=== PATIENT | male | born 1945 | race African-American/Black ===

== ENCOUNTER 2018-11-13 15:49 | Inpatient (IN) | payer MEDICARE, MEDICAID ==
[~2018-11-13] VITALS: Ht 167.6 cm; Wt 51.1 kg
[2018-11-13 15:00] VITALS: BP 120/56
[2018-11-13 16:43] LABS: BASOPHILS 0.2 % (0-2); EOSINOPHILS 5.6 % (0-7); HEMATOCRIT 36.9 % (42.0-54.0); HEMOGLOBIN 12.3 g/dL (13.5-17.5); IMMATURE GRANULOCYTES 0.2 % (0-5); LYMPHOCYTES 23.2 % (15-50); MCH 28.7 pg (26.0-34.0); MCHC 33.3 g/dL (31.0-37.0); MCV 86.2 fL (80.0-100.0); MEAN PLATELET VOLUME 9.2 fL (7.4-10.4); MONOCYTES 11.3 % (2-11); NEUTROPHILS 59.5 % (40-80); PLATELET COUNT 190 10x3/uL (130-400); RBC 4.28 10x6/uL (4.20-6.10); RDW 15.2 % (11.5-14.5); WBC 8.3 10x3/uL (4.8-10.8)
[2018-11-13 17:01] VITALS: BP 134/53
[2018-11-13 17:10] LABS: ALBUMIN 3.3 g/dL (3.4-5.0); ALKALINE PHOSPHATASE 145 U/L (46-116); ALT (SGPT) 21 U/L (10-68); BILIRUBIN - TOTAL 0.33 mg/dL (0.2-1.3); CALC OSMOLALITY 298 mosm/kg (275-300); CALCIUM 9.4 mg/dL (8.5-10.1); CHLORIDE - SERUM 108 mmol/L (98-107); CREATININE - SERUM 1.7 mg/dL (0.6-1.3); GLUCOSE 120 mg/dL (74-106); POTASSIUM - SERUM 3.7 mmol/L (3.5-5.1); PROTEIN - SERUM 7.7 g/dL (6.4-8.2); SODIUM 146 mmol/L (136-145); UREA NITROGEN 32 mg/dL (7-18); eGFR NON AFRICAN AMERICAN 42 mL/min (90-120)
--- NOTE | 2018-11-13 17:15 | NUR ---
PT ASSISTED WITH URINAL, PT AWARE THAT URINE SAMPLE NEEDED ZACH. CALL LIGHT IN REACH, PT AWARE TO NOTIFY STAFF WHEN URINE SAMPLE IS PRODUCED.
--- NOTE | 2018-11-13 17:32 | NUR ---
URINE SAMPLE SENT TO THE LAB AT THIS TIME.
[2018-11-13 17:56] LABS: CREATINE KINASE 831 UL (21-232)
[2018-11-13 17:58] LABS: APPEARANCE CLEAR (CLEAR); BILIRUBIN NEGATIVE (NEGATIVE); COLOR YELLOW (YELLOW); GLUCOSE NEGATIVE (NEGATIVE); KETONE NEGATIVE (NEGATIVE); NITRITE NEGATIVE (NEGATIVE); PROTEIN NEGATIVE (NEGATIVE); SPECIFIC GRAVITY 1.015 (1.005-1.020)
[2018-11-13 17:59] LABS: BACTERIA FEW /hpf (NONE SEEN); EPITHELIAL CELLS OCC /hpf (0-5); HYALINE CAST 0-5 /lpf (NONE SEEN); MUCUS <1+ /lpf (NONE SEEN); RED CELLS - URINE NONE SEEN /hpf (0-5); WHITE CELLS - URINE RARE /hpf (0-5)
--- NOTE | 2018-11-13 19:00 | NUR ---
HAND OFF REPORT GIVEN AT BEDSIDE TO ALTAF Choi RN.
--- NOTE | 2018-11-13 19:00 | NUR ---
MEDICATION ORDER FOR PATIENT TO BE ABLE TO DO MRI, TECH TO BEDSIDE. TECH BROUGHT PATIENT BACK, HE REFUSED TO DO MRI, STATES ITS TOO PAINFUL AND HE DOSEN'T WANT TO DO IT, IT TAKES TOO LONG PROVIDER NOTIFIED.
--- NOTE | 2018-11-13 19:30 | NUR ---
PATIENT WANTING TO LEAVE, DISCUSSED WITH PATIENT THAT THE BEST TREATMENT PLAN FOR HIM WOULD BE TO HAVE CT SO WE CAN SEE WHAT IS WRONG WITH HIS ARM. HE AGREED. MD TO BEDSIDE, PATIENT STATES HE IS GOING TO LEAVE, STILL LAYING IN BED ISN'T SURE WHAT HE WANTS TO DO.
[2018-11-13] MEDS ORDERED: LISINOPRIL-HCT1 EAC7 PO (23:37)
[2018-11-13] MEDS ORDERED: PROSCAR5 MG PO (23:39)
[2018-11-13] MEDS ORDERED: FLOMAX0.4 MG PO (23:41)
[2018-11-13] MEDS ORDERED: DONEPEZIL HCL10 MG PO (23:43)
[2018-11-14] VITALS (7 sets, daily range): BP systolic 131–155; BP diastolic 44–58; BMI 15.9
[2018-11-14 06:23] LABS: BASOPHILS 0.3 % (0-2); EOSINOPHILS 7.6 % (0-7); HEMATOCRIT 33.7 % (42.0-54.0); HEMOGLOBIN 10.9 g/dL (13.5-17.5); IMMATURE GRANULOCYTES 0.1 % (0-5); LYMPHOCYTES 28.5 % (15-50); MCH 28.2 pg (26.0-34.0); MCHC 32.3 g/dL (31.0-37.0); MCV 87.3 fL (80.0-100.0); MEAN PLATELET VOLUME 9.2 fL (7.4-10.4); MONOCYTES 11.5 % (2-11); PLATELET COUNT 161 10x3/uL (130-400); RBC 3.86 10x6/uL (4.20-6.10); RDW 15.1 % (11.5-14.5); WBC 6.8 10x3/uL (4.8-10.8)
[2018-11-14 06:43] LABS: ANION GAP 9.2 mmol/L (8-16); CALCIUM 8.3 mg/dL (8.5-10.1); CARBON DIOXIDE 30.8 mmol/L (21.0-32.0)
[2018-11-14 06:47] LABS: CREATININE - SERUM 1.1 mg/dL (0.6-1.3)
--- NOTE | 2018-11-14 08:15 | NUR ---
ASSISTED PATIENT TO THE RESTROOM. SUPPLIED FRESH WATER. IV TO THE RIGHT FOREARM PATENT AND INFUSING. C/O WEAKNESS AND FEELING TIRED. FAMILY CAME INTO THE ROOM TO VISIT. BED IS IN LOW POSITIN AND CALL LIGHT IS IN REACH. PATIENT DENIES ANY ADDITIONAL NEEDS AT THIS TIME
--- NOTE | 2018-11-14 15:29 | NUR ---
OT NOTE: PT COOPERATIVE. PT COMPLETED BED MOB WITH CGA. PT COMPLETED SIT TO STAND WITH CGA. PT COMPLETED ADL MOB WITH CGA. PT COMPLETED FACE WASHING WITH SET UP. PT COMPLETED HYGIENE TASK WITH ORAL Kenyon. THANK YOU, TED IVEY
--- NOTE | 2018-11-14 15:51 | NUR ---
SCD'S REFUSED AT THIS TIME
--- NOTE | 2018-11-14 17:40 | MORECARE ---
CASE MANAGEMENT DISCHARGE SUMMARY PATIENT: SHALODNA GOODWIN UNIT: [id number] ADM DATE: 11/13/18 AGE: 72 : 44 SEX: M ROOM/BED: D.6291 AUTHOR: HUGH,DOC PHYSICIAN: REFERRING PHYSICIAN: CARRIE PAGE MD DATE OF SERVICE: 11/14/18 Discharge Plan Patient Name: SHALONDA GOODWIN Facility: [facility]:[place] : 1945 Planned Disposition: Inpatient Rehab Anticipated Discharge Date: Discharge Date: Expected LOS: Initial Reviewer: [id number] Initial Review Date: 11/14/2018 Generated: 11/14/18 6:40 pm Comments DCP- Discharge Planning Updated by [id number]: Rayo Floyd on 11/14/18 4:[address] Patient Name: SHALONDA GOODWIN Admission Status: ER Accout number: [id number] Admission Date: 11-13-2018 : 1945 Admission Diagnosis: Attending: CARRIE PAGE Current LOS: 1 Anticipated DC Date: Planned Disposition: Inpatient Rehab Primary Insurance: [facility] MEDICARE SOLUTIONS PLANNED EXTERNAL PROVIDER: [facility] REH[facility] Discharge Planning Comments: CM MET WITH PT NIECE AND SISTER IN ROOM TO DISCUSS DISCHARGE PLANNING AND NEEDS. SHALONDA GOODWIN provided verbal consent to discuss current and ongoing needs with/in the presence of: NIECE/ POA ESPERANZA, SISTER, ILIANA. PT REPORTS LIVING AT HOME INDEPENDENTLY AND ALONE. PT HAS CANE HE DOES NOT USE AND A ROLLING WALKER WITH SEAT; PT HAS NO MEDICAL EQUIPMENT PROVIDER PREFERENCE. PT HAS NO OUTSIDE SERVICES ASSISTING IN THE HOME. PT'S NIECE IS WORKING ON GETTING PERSONAL CARE THROUGH MEDICAID. CM DISCUSSED AVAILABILITY OF HOME HEALTH, REHAB SERVICES AND MEDICAL EQUIPMENT. PT AND FAMILY WANT REHAB AT [facility] AND IF DECLINED, WANTS REHAB AT [facility]. FAMILY WILL PICK PT UP FOR DISCHARGE HOME. CHOICE FOR [facility] SIGNED. CM TO FAX REFERRAL TO [facility] INPATIENT REHAB SOON POSSIBLE PT HAS MANAGED MEDICARE AND WILL REQUIRE PRIOR AUTHORIZATION FOR SERVICES. Advanced Manager: Rayo Floyd DCPIA - Discharge Planning Initial Assessment Updated by [id number]: Rayo Floyd on 11/14/18 5:32 pm * Is the patient Alert and Oriented? Yes * How many steps to enter\exit or inside your home? ELEVATOR * PCP DR. PAGE * Pharmacy [facility]. * Preadmission Environment Home Alone * ADLs Partial Dependent * Partial ADLs (Assistance needed) Bathing Medication Management * Equipment Cane Rolling Walker * Other Equipment NO MEDICAL EQUIPMENT PROVIDER PREFERENCE * List name and contact numbers for known caregivers / representatives who currently or will assist patient after discharge: PRAVEEN ANTON / JEANNINE, * Verbal permission to speak to the caregivers and representatives has been obtained from the patient. Yes * Community resources currently utilized None * Please name any agencies selected above. NONE * Additional services required to return to the preadmission environment? Yes * Can the patient safely return to the preadmission environment? Yes * Has this patient been hospitalized within the prior 30 days at any hospital? No Coverage Notice Reviewer: [id number] John Floyd Notice Issued Date-Time: 11/14/2018 13:40 Notice Type: Patient Choice Letter Notice Delivered To: Family Member Relationship to Patient: Power of Staking Engineer Steam Shovelman Name: ESPERANZA SANTA Delivery Method: HAND - Hand Delivered Nasreen Days: Prior Verbal Notification: Recipient Understood Notice: Yes Recipient Signature: Yes Med Rec Note Co-signed by Attending: Coverage Notice Comment: [facility] NAILS TO [facility] IN[facility]IENT REHAB Patient Name: SHALONDA GOODWIN Page [id number] at 1740 All edits/amendments must be made on the electronic document DICTATION DATE: 11/14/181739 HVAC MAINTENANCE TECHNICIAN: MACIEL 11/14/181739 RPT#: [id number] DC DATE: STATUS: ADM IN [facility] [address] [place] [address] END OF REPORT
--- NOTE | 2018-11-14 19:34 | NUR ---
REPORT RECEIVED FROM DAY SHIFT, PT CARE ASSUMED. INTRODUCED SELF AND WROTE NAME ON BOARD. PT LYING IN BED WATCHING TV, AAOX4. DENIES ANY NEEDS AT THIS TIME. BED IN LOWEST POSITION, SR X2, CALL LIGHT WITHIN REACH. WILL CONTINUE TO MONITOR.
[2018-11-15 01:01] VITALS: BP 149/65
[2018-11-15 06:28] LABS: BASOPHILS 0.3 % (0-2); EOSINOPHILS 6.4 % (0-7); HEMATOCRIT 33.1 % (42.0-54.0); HEMOGLOBIN 11.2 g/dL (13.5-17.5); IMMATURE GRANULOCYTES 0.1 % (0-5); LYMPHOCYTES 27.4 % (15-50); MCH 29.4 pg (26.0-34.0); MCHC 33.8 g/dL (31.0-37.0); MCV 86.9 fL (80.0-100.0); MEAN PLATELET VOLUME 8.9 fL (7.4-10.4); MONOCYTES 12.2 % (2-11); NEUTROPHILS 53.6 % (40-80); PLATELET COUNT 155 10x3/uL (130-400); RBC 3.81 10x6/uL (4.20-6.10); RDW 14.9 % (11.5-14.5); WBC 6.9 10x3/uL (4.8-10.8)
[2018-11-15 06:47] LABS: CALC OSMOLALITY 279 mosm/kg (275-300); CALCIUM 8.4 mg/dL (8.5-10.1); CARBON DIOXIDE 31.1 mmol/L (21.0-32.0); CHLORIDE - SERUM 106 mmol/L (98-107); CREATININE - SERUM 0.9 mg/dL (0.6-1.3); GLUCOSE 92 mg/dL (74-106); POTASSIUM - SERUM 4.3 mmol/L (3.5-5.1); SODIUM 140 mmol/L (136-145); eGFR NON AFRICAN AMERICAN 88 mL/min (90-120)
[2018-11-15 06:48] LABS: UREA NITROGEN 16 mg/dL (7-18)
[2018-11-15 06:52] VITALS: BP 132/63
--- NOTE | 2018-11-15 07:43 | NUR ---
PT LYING IN BED. RESTING QUIETLTY. WATCHING TV. 02 AT 2L VIA NC. RIGHT FA SL. PT HAS NO FURTHER NEEDS AT THIS TIME. BED LOW. CL IN REACH.
[2018-11-15 08:30] VITALS: BP 145/58
--- NOTE | 2018-11-15 08:34 | MORECARE ---
CASE MANAGEMENT DISCHARGE SUMMARY PATIENT: SHALONDA GOODWIN UNIT: [id number] ADM DATE: 11/13/18 AGE: 72 : 44 SEX: M ROOM/BED: D.4756 AUTHOR: HUGH,DOC PHYSICIAN: REFERRING PHYSICIAN: CARRIE PAGE MD DATE OF SERVICE: 11/15/18 Discharge Plan Patient Name: SHALONDA GOODWIN Facility: [facility]:[place] : 1945 Planned Disposition: Inpatient Rehab Anticipated Discharge Date: Discharge Date: Expected LOS: Initial Reviewer: [id number] Initial Review Date: 11/14/2018 Generated: 11/15/18 9:33 am Comments DCP- Discharge Planning Updated by [id number]: Rayo Floyd on 11/14/18 4:[address] Patient Name: SHALONDA GOODWIN Admission Status: ER Accout number: [id number] Admission Date: 11-13-2018 : 1945 Admission Diagnosis: Attending: CARRIE PAGE Current LOS: 1 Anticipated DC Date: Planned Disposition: Inpatient Rehab Primary Insurance: [facility] MEDICARE SOLUTIONS PLANNED EXTERNAL PROVIDER: [facility] INPATIENT REHAB Discharge Planning Comments: CM MET WITH PT NIECE AND SISTER IN ROOM TO DISCUSS DISCHARGE PLANNING AND NEEDS. SHALONDA GOODWIN provided verbal consent to discuss current and ongoing needs with/in the presence of: NIECE/ POA ESPERANZA, SISTER, ILIANA. PT REPORTS LIVING AT HOME INDEPENDENTLY AND ALONE. PT HAS CANE HE DOES NOT USE AND A ROLLING WALKER WITH SEAT; PT HAS NO MEDICAL EQUIPMENT PROVIDER PREFERENCE. PT HAS NO OUTSIDE SERVICES ASSISTING IN THE HOME. PT'S NIECE IS WORKING ON GETTING PERSONAL CARE THROUGH MEDICAID. CM DISCUSSED AVAILABILITY OF HOME HEALTH, REHAB SERVICES AND MEDICAL EQUIPMENT. PT AND FAMILY WANT REHAB AT [facility] AND IF DECLINED, WANTS REHAB AT [facility]. FAMILY WILL PICK PT UP FOR DISCHARGE HOME. CHOICE FOR [facility] SIGNED. CM TO FAX REFERRAL TO [facility] INPATIENT REHAB SOON POSSIBLE PT HAS MANAGED MEDICARE AND WILL REQUIRE PRIOR AUTHORIZATION FOR SERVICES. Chaser Tar: Rayo Floyd DCPIA - Discharge Planning Initial Assessment Updated by [email or web address]: Rayo Floyd on 11/14/18 5:32 pm * Is the patient Alert and Oriented? Yes * How many steps to enter\exit or inside your home? ELEVATOR * PCP DR. PAGE * Pharmacy [facility]. * Preadmission Environment Home Alone * ADLs Partial Dependent * Partial ADLs (Assistance needed) Bathing Medication Management * Equipment Cane Rolling Walker * Other Equipment NO MEDICAL EQUIPMENT PROVIDER PREFERENCE * List name and contact numbers for known caregivers / representatives who currently or will assist patient after discharge: PRAVEEN ANTON / JEANNINE, * Verbal permission to speak to the caregivers and representatives has been obtained from the patient. Yes * Community resources currently utilized None * Please name any agencies selected above. NONE * Additional services required to return to the preadmission environment? Yes * Can the patient safely return to the preadmission environment? Yes * Has this patient been hospitalized within the prior 30 days at any hospital? No External Providers External Provider: [facility] Contact Date: 11/15/2018 Service Request Date: Service Type: Resolution: Reviewer: Comments: Coverage Notice Reviewer: [id number] John Floyd Notice Issued Date-Time: 11/14/2018 13:40 Notice Type: Patient Choice Letter Notice Delivered To: Family Member Relationship to Patient: Power of Licensed Marine Engineer Bag Sorter Name: ESPERANZA SANTA Delivery Method: HAND - Hand Delivered Nasreen Days: Prior Verbal Notification: Recipient Understood Notice: Yes Recipient Signature: Yes Med Rec Note Co-signed by Attending: Coverage Notice Comment: [facility] CHOICE TO [facility] INPATIENT REHAB Last DP export: 11/14/18 4:40 p Patient Name: SHALONDA GOODWIN Page [phone] at 0834 All edits/amendments must be made on the electronic document DICTATION DATE: 11/15/18832 RETAIL GIFT CARD MERCHANDISING: MACIEL 11/15/18832 RPT#: [id number] DC DATE: STATUS: ADM IN [facility] [address] [place] [address] END OF REPORT
[2018-11-15 12:00] VITALS: BP 139/69
--- NOTE | 2018-11-15 12:01 | MORECARE ---
CASE MANAGEMENT DISCHARGE SUMMARY PATIENT: SHALONDA GOODWIN UNIT: [id number] ADM DATE: 11/13/18 AGE: 72 : 44 SEX: M ROOM/BED: D.2137 AUTHOR: MARIANGEL REESE PHYSICIAN: REFERRING PHYSICIAN: CARRIE PAGE MD DATE OF SERVICE: 11/15/18 Discharge Plan Patient Name: SHALONDA GOODWIN Facility: [facility]:[place] : 1945 Planned Disposition: Inpatient Rehab Anticipated Discharge Date: Discharge Date: Expected LOS: Initial Reviewer: [id number] Initial Review Date: 11/14/2018 Generated: 11/15/18 1:00 pm Comments DCP- Discharge Planning Updated by [email or web address]: Rayo Floyd on 11/15/18 10:[address] Patient Name: SHALONDA GOODWIN Encounter No: [id number] : 1945 Primary Insurance: [facility] MEDICARE SOLUTIONS Anticipated DC Date: Planned Disposition: Inpatient Rehab External [facility] DCP follow-up note: [facility] WHO [facility] AND WILL SUBMIT REQUEST FOR INSURANCE AUTHORIZATION FOR REHAB SERVICES. CM WAITING INSURANCE AUTHORIZATION FOR INPATIENT REHAB SERVICES AT [facility]. ENRIQUE Ybarra DCP- Discharge Planning Updated by [id number]: Rayo Floyd on 11/14/18 4:[address] Patient Name: SHALONDA GOODWIN Admission Status: ER Accout number: [id number] Admission Date: 11-13-2018 : 1945 Admission Diagnosis: Attending: CARRIE PAGE Current LOS: 1 Anticipated DC Date: Planned Disposition: Inpatient Rehab Primary Insurance: [facility] MEDICARE SOLUTIONS PLANNED EXTERNAL PROVIDER: [facility] INPATIENT REHAB Discharge Planning Comments: CM MET WITH PT NIECE AND SISTER IN ROOM TO DISCUSS DISCHARGE PLANNING AND NEEDS. SHALONDA GOODWIN provided verbal consent to discuss current and ongoing needs with/in the presence of: NIECE/ POA ESPERANZA, SISTER, ILIANA. PT REPORTS LIVING AT HOME INDEPENDENTLY AND ALONE. PT HAS CANE HE DOES NOT USE AND A ROLLING WALKER WITH SEAT; PT HAS NO MEDICAL EQUIPMENT PROVIDER PREFERENCE. PT HAS NO OUTSIDE SERVICES ASSISTING IN THE HOME. PT'S NIECE IS WORKING ON GETTING PERSONAL CARE THROUGH MEDICAID. CM DISCUSSED AVAILABILITY OF HOME HEALTH, REHAB SERVICES AND MEDICAL EQUIPMENT. PT AND FAMILY WANT REHAB AT [facility] AND IF DECLINED, WANTS REHAB AT [facility]. FAMILY WILL PICK PT UP FOR DISCHARGE HOME. CHOICE FOR [facility] SIGNED. CM TO FAX REFERRAL TO [facility] INPATIENT REHAB SOON POSSIBLE PT HAS MANAGED MEDICARE AND WILL REQUIRE PRIOR AUTHORIZATION FOR SERVICES. Private Inquiry Agent: Rayo Floyd DCPIA - Discharge Planning Initial Assessment Updated by [id number]: Rayo Floyd on 11/14/18 5:32 pm * Is the patient Alert and Oriented? Yes * How many steps to enter\exit or inside your home? ELEVATOR * PCP DR. PAGE * Pharmacy [facility]. * Preadmission Environment Home Alone * ADLs Partial Dependent * Partial ADLs (Assistance needed) Bathing Medication Management * Equipment Cane Rolling Walker * Other Equipment NO MEDICAL EQUIPMENT PROVIDER PREFERENCE * List name and contact numbers for known caregivers / representatives who currently or will assist patient after discharge: PRAVEEN ANTON / JEANNINE, * Verbal permission to speak to the caregivers and representatives has been obtained from the patient. Yes * Community resources currently utilized None * Please name any agencies selected above. NONE * Additional services required to return to the preadmission environment? Yes * Can the patient safely return to the preadmission environment? Yes * Has this patient been hospitalized within the prior 30 days at any hospital? No Coverage Notice Reviewer: [id number] - Rayo Floyd Notice Issued Date-Time: 11/14/2018 13:40 Notice Type: Patient Choice Letter Notice Delivered To: Family Member Relationship to Patient: Power of Construction Tech Hosiery Looper Name: ESPERANZA SNATA Delivery Method: HAND - Hand Delivered Nasreen Days: Prior Verbal Notification: Recipient Understood Notice: Yes Recipient Signature: Yes Med Rec Note Co-signed by Attending: Coverage Notice Comment: WILLIAMS NAILS CHOICE TO [facility] INPATIENT REHAB Last DP export: 11/15/18 7:34 a Patient Name: SHALONDA GOODWIN Page [phone] at 1201 All edits/amendments must be made on the electronic document DICTATION DATE: 11/15/181199 ELECTRIC FREIGHT CAR OPERATOR: MACIEL 11/15/181199 RPT#: [id number] DC DATE: STATUS: ADM IN [facility] [address] [place] [address] END OF REPORT
--- NOTE | 2018-11-15 12:49 | NUR ---
OT NOTE: SET UP FOR LUNCH TRAY. MIN ASSIST FOR OPENING PKGS. BED MOB WITH MIN ASSIST. WILL BENEFIT FROM CONTINUED THERAPY FOLLOWING DC TO IMPROVE STRENGTH, ENDURANCE, SAFETY, AND ADL INDEP. HUA LOPEZ, OTR/L
[2018-11-15 16:30] VITALS: BP 135/62
--- NOTE | 2018-11-15 19:29 | NUR ---
REPORT RECEIVED FROM DAY SHIFT, PT CARE ASSUMED. WROTE NAME ON BOARD, PT SITTING UP IN BED WATCHING TV, AAOX4. DENIES ANY NEEDS AT THIS TIME. BED IN LOWEST POSITION, SR X2, CALL LIGHT WITHIN REACH. WILL CONTINUE TO MONITOR.
[2018-11-15 20:00] VITALS: BP 155/77
[2018-11-16] VITALS: BP 146/68
--- NOTE | 2018-11-16 02:35 | NUR ---
PT LYING IN BED WITH EYES CLOSED, RR EVEN AND NONLABORED, NO S/S OF DISTRESS, AROUSES EASILY TO VOICE. DENIES ANY NEEDS AT THIS TIME. BED IN LOWEST POSITION, SR X2, CALL LIGHT WITHIN REACH. WILL CONTINUE TO MONITOR.
[2018-11-16 04:00] VITALS: BP 139/69
[2018-11-16 05:53] LABS: BASOPHILS 0.2 % (0-2); EOSINOPHILS 6.3 % (0-7); HEMATOCRIT 39.7 % (42.0-54.0); HEMOGLOBIN 12.9 g/dL (13.5-17.5); IMMATURE GRANULOCYTES 0.2 % (0-5); LYMPHOCYTES 27.7 % (15-50); MCH 28.4 pg (26.0-34.0); MCHC 32.5 g/dL (31.0-37.0); MCV 87.4 fL (80.0-100.0); MEAN PLATELET VOLUME 9.6 fL (7.4-10.4); MONOCYTES 12.8 % (2-11); NEUTROPHILS 52.8 % (40-80); RBC 4.54 10x6/uL (4.20-6.10); RDW 14.7 % (11.5-14.5); WBC 8.3 10x3/uL (4.8-10.8)
[2018-11-16 06:15] LABS: CALC OSMOLALITY 275 mosm/kg (275-300); CALCIUM 9.3 mg/dL (8.5-10.1); CARBON DIOXIDE 29.9 mmol/L (21.0-32.0); CHLORIDE - SERUM 102 mmol/L (98-107); CREATININE - SERUM 0.9 mg/dL (0.6-1.3); GLUCOSE 97 mg/dL (74-106); SODIUM 137 mmol/L (136-145); UREA NITROGEN 17 mg/dL (7-18); eGFR NON AFRICAN AMERICAN 88 mL/min (90-120)
[2018-11-16 06:21] LABS: POTASSIUM - SERUM 5.2 mmol/L (3.5-5.1)
[2018-11-16 06:43] LABS: PLATELET COUNT 198 10x3/uL (130-400)
--- NOTE | 2018-11-16 07:00 | NUR ---
RECEIVED REPORT. ASSUMED CARE OF PATIENT. PATIENT LYING IN BED WITH EYES OPEN. CALL LIGHT WITHIN REACH. PATIENT DENIES ANY NEEDS THIS AM. RESP EVEN AND UNLABORED. NO DISTRESS.
[2018-11-16 08:30] VITALS: BP 147/64
--- NOTE | 2018-11-16 09:40 | NUR ---
PATIENT IS SCHEDULED TO RECEIVE HCTZ AND LISINOPRIL THIS AM, HOWEVER K+ IS 5.2. AWAITING NEW ORDERS FROM BEFORE ADMINISTERING THESE MEDICATIONS WHICH CAN FURTHER INCREASE K+
[2018-11-16 12:45] VITALS: BP 138/57
--- NOTE | 2018-11-16 13:56 | NUR ---
rehab prescreen: this pt has [facility] insurance and will required a prior authorization before able to deturmine if able to be admitted. will follow with pt progress and notify of insurance decision.
[2018-11-16 16:45] VITALS: BP 141/76
--- NOTE | 2018-11-16 17:26 | NUR ---
PATIENT SITTING IN BED CONSUMING PM MEAL AT THIS TIME. PATIENT COMPLAINED THAT HE IS ALMOST OUT OF TOILET PAPER. NEW ROLL OF TOILET PAPER PLACED ON ROLLER IN RESTROOM. PATIENT WITH NO OTHER COMPLAINTS. ATTENTION TOWARD TELEVISION AT THIS TIME.
--- NOTE | 2018-11-16 19:15 | NUR ---
RECEIVED CARE FROM DAY NURSE. LYING IN BED WATCHING TV. NO NEEDS VOICED AT THIS TIME. CALL LIGHT AT SIDE. IV SL TO RIGHT FA.
[2018-11-16 22:06] VITALS: BP 119/71
--- NOTE | 2018-11-17 01:09 | NUR ---
I have reviewed this patient and I concur with the Shift Assessment completed by the Licensed Practical Nurse today this shift.
[2018-11-17 01:25] VITALS: BP 120/62
[2018-11-17 05:20] VITALS: BP 119/73
[2018-11-17 05:43] LABS: BASOPHILS 0.3 % (0-2); EOSINOPHILS 6.6 % (0-7); HEMATOCRIT 39.6 % (42.0-54.0); HEMOGLOBIN 13.3 g/dL (13.5-17.5); IMMATURE GRANULOCYTES 0.2 % (0-5); LYMPHOCYTES 29.6 % (15-50); MCH 28.7 pg (26.0-34.0); MCHC 33.6 g/dL (31.0-37.0); MCV 85.5 fL (80.0-100.0); MEAN PLATELET VOLUME 9.4 fL (7.4-10.4); MONOCYTES 10.5 % (2-11); NEUTROPHILS 52.8 % (40-80); PLATELET COUNT 211 10x3/uL (130-400); RBC 4.63 10x6/uL (4.20-6.10); RDW 14.9 % (11.5-14.5); WBC 8.7 10x3/uL (4.8-10.8)
[2018-11-17 06:05] LABS: ANION GAP 11.9 mmol/L (8-16); CALCIUM 9.2 mg/dL (8.5-10.1); CARBON DIOXIDE 28.5 mmol/L (21.0-32.0); CREATININE - SERUM 1.1 mg/dL (0.6-1.3); POTASSIUM - SERUM 4.4 mmol/L (3.5-5.1)
--- NOTE | 2018-11-17 07:46 | NUR ---
LIGHTS ARE OFF IN ROOM. PATIENT HAS EYES CLOSED AND IS RESTING QUIELTY. O2 IS NOTED AT 1 L. IV TO THE RIGHT FOREARM IS SALINE LOCKED. BED IS IN LOW POSITION AND CALL LIGHT IS IN REACH. WHITE BOARED UPDATED. NO COMPLAINTS OR NEEDS AT THIS TIME
[2018-11-17 08:33] VITALS: BP 112/58
[2018-11-17 12:30] VITALS: BP 104/55
--- NOTE | 2018-11-17 19:21 | NUR ---
PATIENT LAYING IN BED. NO COMPLAINTS AT THIS TIME. NO DISTRESS NOTED.
[2018-11-17 20:05] VITALS: BP 92/46
[2018-11-17 23:42] VITALS: BP 102/60
[2018-11-18 04:15] VITALS: BP 103/48
[2018-11-18 05:31] LABS: BASOPHILS 0.3 % (0-2); EOSINOPHILS 4.7 % (0-7); HEMATOCRIT 37.3 % (42.0-54.0); HEMOGLOBIN 12.5 g/dL (13.5-17.5); IMMATURE GRANULOCYTES 0.3 % (0-5); LYMPHOCYTES 24.8 % (15-50); MCH 28.6 pg (26.0-34.0); MCHC 33.5 g/dL (31.0-37.0); MCV 85.4 fL (80.0-100.0); MEAN PLATELET VOLUME 9.1 fL (7.4-10.4); MONOCYTES 13.2 % (2-11); NEUTROPHILS 56.7 % (40-80); PLATELET COUNT 221 10x3/uL (130-400); RBC 4.37 10x6/uL (4.20-6.10); RDW 14.8 % (11.5-14.5); WBC 7.4 10x3/uL (4.8-10.8)
[2018-11-18 06:00] LABS: ANION GAP 11.9 mmol/L (8-16); CALCIUM 8.8 mg/dL (8.5-10.1); CARBON DIOXIDE 30.8 mmol/L (21.0-32.0); POTASSIUM - SERUM 4.7 mmol/L (3.5-5.1)
--- NOTE | 2018-11-18 06:00 | NUR ---
I have reviewed this patient and I concur with the Shift Assessment completed by the Licensed Practical Nurse today this shift.
[2018-11-18 06:12] LABS: CREATININE - SERUM 1.6 mg/dL (0.6-1.3)
--- NOTE | 2018-11-18 07:30 | NUR ---
RECIEVED REPORT. ALERT AND ORIENTED X4. SITTING UP IN BED WATCHING TV. DENIES PAIN OR SOB. DENIES ANY NEEDS AT THIS TIME. CONTINUE PLAN OF CARE AND SAFETY PRECAUTIONS.
[2018-11-18 08:14] VITALS: BP 118/65
--- NOTE | 2018-11-18 09:19 | MORECARE ---
CASE MANAGEMENT DISCHARGE SUMMARY PATIENT: SHALONDA GOODWIN UNIT: [id number] ADM DATE: 11/13/18 AGE: 72 : 44 SEX: M ROOM/BED: D.2137 AUTHOR: MARIANGEL REESE PHYSICIAN: REFERRING PHYSICIAN: CARRIE PAGE MD DATE OF SERVICE: 11/18/18 Discharge Plan Patient Name: SHALONDA GOODWIN Facility: [facility]:[place] : 1945 Planned Disposition: Inpatient Rehab Anticipated Discharge Date: Discharge Date: Expected LOS: Initial Reviewer: [id number] Initial Review Date: 11/14/2018 Generated: 11/18/18 10:19 am Comments DCP- Discharge Planning Updated by [id number]: Rayo Floyd on 11/15/18 10:[address] Patient Name: SHALONDA GOODWIN Encounter No: [id number] : 1945 Primary Insurance: [facility] MEDICARE SOLUTIONS Anticipated DC Date: Planned Disposition: Inpatient Rehab External [facility] DCP follow-up note: [facility] , WHO [facility]CE[facility]ED REFERRAL AND WILL SUBMIT REQUEST FOR INSURANCE AUTHORIZATION FOR REHAB SERVICES. CM WAITING INSURANCE AUTHORIZATION FOR INPATIENT REHAB SERVICES AT [facility]. ENRIQUE Ybarra DCP- Discharge Planning Updated by [id number]: Rayo Floyd on 11/14/18 4:[address] Patient Name: SHALONDA GOODWIN Admission Status: ER Accout number: [id number] Admission Date: 11-13-2018 : 1945 Admission Diagnosis: Attending: CARRIE PAGE Current LOS: 1 Anticipated DC Date: Planned Disposition: Inpatient Rehab Primary Insurance: [facility] MEDICARE SOLUTIONS PLANNED EXTERNAL PROVIDER: [facility] INPATIENT REHAB Discharge Planning Comments: CM MET WITH PT NIECE AND SISTER IN ROOM TO DISCUSS DISCHARGE PLANNING AND NEEDS. SHALONDA GOODWIN provided verbal consent to discuss current and ongoing needs with/in the presence of: NIECE/ POA ESPERANZA, SISTER, ILIANA. PT REPORTS LIVING AT HOME INDEPENDENTLY AND ALONE. PT HAS CANE HE DOES NOT USE AND A ROLLING WALKER WITH SEAT; PT HAS NO MEDICAL EQUIPMENT PROVIDER PREFERENCE. PT HAS NO OUTSIDE SERVICES ASSISTING IN THE HOME. PT'S NIECE IS WORKING ON GETTING PERSONAL CARE THROUGH MEDICAID. CM DISCUSSED AVAILABILITY OF HOME HEALTH, REHAB SERVICES AND MEDICAL EQUIPMENT. PT AND FAMILY WANT REHAB AT [facility] AND IF DECLINED, WANTS REHAB AT [facility]. FAMILY WILL PICK PT UP FOR DISCHARGE HOME. [facility] SIGNED. CM TO FAX REFERRAL TO [facility] INPATIENT REHAB SOON POSSIBLE PT HAS MANAGED MEDICARE AND WILL REQUIRE PRIOR AUTHORIZATION FOR SERVICES. Natural Gas Basis Trader: aRyo Floyd DCPIA - Discharge Planning Initial Assessment Updated by [id number]: Rayo Floyd on 11/14/18 5:32 pm * Is the patient Alert and Oriented? Yes * How many steps to enter\exit or inside your home? ELEVATOR * PCP DR. PAGE * Pharmacy [facility]. * Preadmission Environment Home Alone * ADLs Partial Dependent * Partial ADLs (Assistance needed) Bathing Medication Management * Equipment Cane Rolling Walker * Other Equipment NO MEDICAL EQUIPMENT PROVIDER PREFERENCE * List name and contact numbers for known caregivers / representatives who currently or will assist patient after discharge: ESPERANZADOMENICO SANTAPRAVEEN / JEANNINE, * Verbal permission to speak to the caregivers and representatives has been obtained from the patient. Yes * Community resources currently utilized None * Please name any agencies selected above. NONE * Additional services required to return to the preadmission environment? Yes * Can the patient safely return to the preadmission environment? Yes * Has this patient been hospitalized within the prior 30 days at any hospital? No External Providers External Provider: [facility] Next Contact Date: 11/18/2018 Service Request Date: Service Type: Resolution: Reviewer: Comments: Coverage Notice Reviewer: [id number] - Rayo Floyd Notice Issued Date-Time: 11/14/2018 13:40 Notice Type: Patient Choice Letter Notice Delivered To: Family Member Relationship to Patient: Power of Carpet Installation Specialist Classics Professor Name: ESPERANZA SANTA Delivery Method: HAND - Hand Delivered Nasreen Days: Prior Verbal Notification: Recipient Understood Notice: Yes Recipient Signature: Yes Med Rec Note Co-signed by Attending: Coverage Notice Comment: WILLIAMS NAILS CHOICE TO [facility] INPATIENT REHAB Last DP export: 11/15/18 11:01 a Patient Name: SHALONDA GOODWIN Page 45974 at 0919 All edits/amendments must be made on the electronic document DICTATION DATE: 11/18/18918 FEATHER WASHER: MACIEL 11/18/18918 RPT#: [id number] DC DATE: STATUS: ADM IN [facility] [address] [place] [address] END OF REPORT
--- NOTE | 2018-11-18 09:30 | NUR ---
OT NOTE: UPON ENTERING ROOM, PT WAS STANDING IN THE BATHROOM HOLDING ON TO DOOR FACING WITH BRIEF DOWN AROUND ANKLES AND WALKER FOLDED UP ALONG WALL. EDUCATED PT REGARDING SAFETY AND RISK OF FALLS WITHOUT USE OF WALKER. PT STATED THAT HE DIDNT NEED IT. AMB WITH PT TO SINK WITH MIN ASSIST AND SEVERAL EPISODES OF LOB..EXPLAINED THAT HE COULD HAVE FALLEN IF ATTEMPTING THIS ALONE. ABLE TO STAND AT SINK AND PERFORM BATHING TASKS WITH MIN ASSIST. ABLE TO MONI GOWN WITH MIN ASSIST; MOD ASSIST TO MONI CLEAN BRIEFS. PERFORMED UE EXS WHILE SITTING ON EOB. HUA LOPEZ, OTR/L
--- NOTE | 2018-11-18 09:38 | MORECARE ---
CASE MANAGEMENT DISCHARGE SUMMARY PATIENT: SHALONDA GOODWIN UNIT: [id number] ADM DATE: 11/13/18 AGE: 72 : 44 SEX: M ROOM/BED: D.2137 AUTHOR: HUGH,MARIANGEL PHYSICIAN: REFERRING PHYSICIAN: CARRIE PAGE MD DATE OF SERVICE: 11/18/18 Discharge Plan Patient Name: SHALONDA GOODWIN Facility: [facility]:[place] : 1945 Planned Disposition: [facility] Facility Anticipated Discharge Date: 11/18/18 Discharge Date: Expected LOS: 5 Initial Reviewer: [email or web address] Initial Review Date: 11/14/2018 Generated: 11/18/18 10:38 am Comments DCP- Discharge Planning Updated by [email or web address]: Rayo Floyd on 11/15/18 10:[address] Patient Name: SHALONDA GOODWIN Encounter No: [id number] : 1945 Primary Insurance: [facility] MEDICARE SOLUTIONS Anticipated DC Date: Planned Disposition: Inpatient Rehab External Planned Provider: [facility] RE[facility] DCP follow-up note: CM RECEIVED CALL FROM [facility], , WHO RECEIVED REFERRAL AND WILL SUBMIT REQUEST FOR INSURANCE AUTHORIZATION FOR REHAB SERVICES. CM WAITING INSURANCE AUTHORIZATION FOR INPATIENT REHAB SERVICES AT [facility]. ENRIQUE Ybarra DCP- Discharge Planning Updated by [id number]: Rayo Floyd on 11/14/18 4:[address] Patient Name: SHALONDA GOODWIN Admission Status: ER Accout number: [id number] Admission Date: 11-13-2018 : 1945 Admission Diagnosis: Attending: CARRIE PAGE Current LOS: 1 Anticipated DC Date: Planned Disposition: Inpatient Rehab Primary Insurance: [facility] MEDICARE SOLUTIONS PLANNED EXTERNAL PROVIDER: [facility] INPATIENT REHAB Discharge Planning Comments: CM MET WITH PT NIECE AND SISTER IN ROOM TO DISCUSS DISCHARGE PLANNING AND NEEDS. SHALONDA GOODWIN provided verbal consent to discuss current and ongoing needs with/in the presence of: NIECE/ POA ESPERANZA, SISTER, ILIANA. PT REPORTS LIVING AT HOME INDEPENDENTLY AND ALONE. PT HAS CANE HE DOES NOT USE AND A ROLLING WALKER WITH SEAT; PT HAS NO MEDICAL EQUIPMENT PROVIDER PREFERENCE. PT HAS NO OUTSIDE SERVICES ASSISTING IN THE HOME. PT'S NIECE IS WORKING ON GETTING PERSONAL CARE THROUGH MEDICAID. CM DISCUSSED AVAILABILITY OF HOME HEALTH, REHAB SERVICES AND MEDICAL EQUIPMENT. PT AND FAMILY WANT REHAB AT [facility] AND IF DECLINED, WANTS REHAB AT [facility]. FAMILY WILL PICK PT UP FOR DISCHARGE HOME. CHOICE FOR [facility] SIGNED. CM TO FAX REFERRAL TO [facility] INPATIENT REHAB SOON POSSIBLE PT HAS MANAGED MEDICARE AND WILL REQUIRE PRIOR AUTHORIZATION FOR SERVICES. Assembler Chassis: Rayo Floyd DCPIA - Discharge Planning Initial Assessment Updated by [email or web address]: Rayo Floyd on 11/14/18 5:32 pm * Is the patient Alert and Oriented? Yes * How many steps to enter\exit or inside your home? ELEVATOR * PCP DR. PAGE * Pharmacy [facility]. * Preadmission Environment Home Alone * ADLs Partial Dependent * Partial ADLs (Assistance needed) Bathing Medication Management * Equipment Cane Rolling Walker * Other Equipment NO MEDICAL EQUIPMENT PROVIDER PREFERENCE * List name and contact numbers for known caregivers / representatives who currently or will assist patient after discharge: PRAVEEN ANTON / JEANNINE, * Verbal permission to speak to the caregivers and representatives has been obtained from the patient. Yes * Community resources currently utilized None * Please name any agencies selected above. NONE * Additional services required to return to the preadmission environment? Yes * Can the patient safely return to the preadmission environment? Yes * Has this patient been hospitalized within the prior 30 days at any hospital? No Coverage Notice Reviewer: [id number] - Rayo Floyd Notice Issued Date-Time: 11/14/2018 13:40 Notice Type: Patient Choice Letter Notice Delivered To: Family Member Relationship to Patient: Power of Bridge Builder Supervisor Char House Name: ESPERANZA SANTA Delivery Method: HAND - Hand Delivered Nasreen Days: Prior Verbal Notification: Recipient Understood Notice: Yes Recipient Signature: Yes Med Rec Note Co-signed by Attending: Coverage Notice Comment: WILLIAMS NAILS CHOICE TO [facility] INPATIENT REHAB Last DP export: 11/18/18 8:19 a Patient Name: SHALONDA GOODWIN Page [id number] at 0938 All edits/amendments must be made on the electronic document DICTATION DATE: 11/18/18937 WAREHOUSE ATTENDANT: MACIEL 11/18/18937 RPT#: [id number] DC DATE: STATUS: ADM IN [facility] [address] [place] [address] END OF REPORT
--- NOTE | 2018-11-18 10:03 | MORECARE ---
CASE MANAGEMENT DISCHARGE SUMMARY PATIENT: SHALONDA GOODWIN UNIT: [id number] ADM DATE: 11/13/18 AGE: 72 : 44 SEX: M ROOM/BED: D.2137 AUTHOR: HUGH,DOC PHYSICIAN: REFERRING PHYSICIAN: CARRIE PAGE MD DATE OF SERVICE: 11/18/18 Discharge Plan Patient Name: SHALONDA GOODWIN Facility: [facility]:[place] : 1945 Planned Disposition: Retirement Facility Anticipated Discharge Date: 11/18/18 Discharge Date: Expected LOS: 5 Initial Reviewer: [id number] Initial Review Date: 11/14/2018 Generated: 11/18/18 11:03 am Comments DCP- Discharge Planning Updated by [email or web address]: Rayo Floyd on 11/18/18 9:[address] Patient Name: SHALONDA GOODWIN Encounter No: [id number] : 1945 Primary Insurance: [facility] MEDICARE SOLUTIONS Anticipated DC Date: 11-18-2018 Planned Disposition: Retirement Facility External Planned Provider: [facility], MEDICARE REHAB BED DCP follow-up note: CM CALLED AND SPOKE TO KATJA SANTA, DISCUSSED COPAY THAT PT WILL BE RESPONSIBLE FOR ($1,800) FOR INPATIENT REHAB. KATJA STATES THAT IS NOT AN OPTION AND WANTS PT REFERRED TO [facility]. CM MET WITH PT IN ROOM, INFORMED OF ABOVE. PT IN AGREEMENT WITH PLAN, IMPORTANT MESSAGE FROM MEDICARE PROVIDED AND EXPLAINED. CM CALLED [facility], , SPOKE TO CM WHO WILL SCREEN PT FOR ADMISSION, CM ASKED FOR DETERMINATION SOON POSSIBLE PT IS READY FOR DISCHARGE. CM FAXED REFERRAL TO [facility] AT [phone]. CM WAITING ADMISSION DETERMINATION FROM [facility] NURSING [facility] INSURANCE AUTHORIZATION OR DENIAL FOR REHAB SERVICES. ENRIQUE Ybarra DCP- Discharge Planning Updated by [email or web address]: Rayo Floyd on 11/15/18 10:[address] Patient Name: SHALONDA GOODWIN Encounter No: [id number] : 1945 Primary Insurance: [facility] MEDICARE SOLUTIONS Anticipated DC Date: Planned Disposition: Inpatient Rehab External Planned Provider: [facility] INPATIENT REHAB DCP follow-up note: CM RECEIVED CALL FROM KATERINE OF [facility], , WHO RECEIVED REFERRAL AND WILL SUBMIT REQUEST FOR INSURANCE AUTHORIZATION FOR REHAB SERVICES. CM WAITING INSURANCE AUTHORIZATION FOR INPATIENT REHAB SERVICES AT [facility]. Rayo Floyd, CASE MANAGEMENT DCP- Discharge Planning Updated by [email or web address]: Rayo Floyd on 11/14/18 4:[address] Patient Name: SHALONDA GOODWIN Admission Status: ER Accout number: [id number] Admission Date: 11-13-2018 : 1945 Admission Diagnosis: Attending: CARRIE PAGE Current LOS: 1 Anticipated DC Date: Planned Disposition: Inpatient Rehab Primary Insurance: [facility] MEDICARE SOLUTIONS PLANNED EXTERNAL PROVIDER: [facility] INPATIENT REHAB Discharge Planning Comments: CM MET WITH PT NIECE AND SISTER IN ROOM TO DISCUSS DISCHARGE PLANNING AND NEEDS. SHALONDA GOODWIN provided verbal consent to discuss current and ongoing needs with/in the presence of: NIECE/ POChantale MATA, SISTER, ILIANA. PT REPORTS LIVING AT HOME INDEPENDENTLY AND ALONE. PT HAS CANE HE DOES NOT USE AND A ROLLING WALKER WITH SEAT; PT HAS NO MEDICAL EQUIPMENT PROVIDER PREFERENCE. PT HAS NO OUTSIDE SERVICES ASSISTING IN THE HOME. PT'S NIECE IS WORKING ON GETTING PERSONAL CARE THROUGH MEDICAID. CM DISCUSSED AVAILABILITY OF HOME HEALTH, REHAB SERVICES AND MEDICAL EQUIPMENT. PT AND FAMILY WANT REHAB AT [facility] AND IF DECLINED, WANTS REHAB AT [facility]. FAMILY WILL PICK PT UP FOR DISCHARGE HOME. CHOICE FOR [facility] SIGNED. CM TO FAX REFERRAL TO [facility] INPATIENT REHAB SOON POSSIBLE PT HAS MANAGED MEDICARE AND WILL REQUIRE PRIOR AUTHORIZATION FOR SERVICES. Hematology Oncology Consultant: Rayo Floyd DCPIA - Discharge Planning Initial Assessment Updated by [email or web address]: Rayo Floyd on 11/14/18 5:32 pm * Is the patient Alert and Oriented? Yes * How many steps to enter\exit or inside your home? ELEVATOR * PCP DR. PAGE * Pharmacy [facility], [facility]. * Preadmission Environment Home Alone * ADLs Partial Dependent * Partial ADLs (Assistance needed) Bathing Medication Management * Equipment Cane Rolling Walker * Other Equipment NO MEDICAL EQUIPMENT PROVIDER PREFERENCE * List name and contact numbers for known caregivers / representatives who currently or will assist patient after discharge: PRAVEEN ANTON / JEANNINE, * Verbal permission to speak to the caregivers and representatives has been obtained from the patient. Yes * Community resources currently utilized None * Please name any agencies selected above. NONE * Additional services required to return to the preadmission environment? Yes * Can the patient safely return to the preadmission environment? Yes * Has this patient been hospitalized within the prior 30 days at any hospital? No Coverage Notice Reviewer: [id number] Floyd Notice Issued Date-Time: 11/14/2018 13:40 Notice Type: Patient Choice Letter Notice Delivered To: Family Member Relationship to Patient: Power of House Builder Warehouse Pricing And Inventory Clerk Name: ESPERANZA SANTA Delivery Method: HAND - Hand Delivered Nasreen Days: Prior Verbal Notification: Recipient Understood Notice: Yes Recipient Signature: Yes Med Rec Note Co-signed by Attending: Coverage Notice Comment: [facility]ILS TO [facility] REHAB Reviewer: [id number] Floyd Notice Issued Date-Time: 11/18/2018 9:40 Notice Type: IM Discharge Notice Notice Delivered To: Patient Relationship to Patient: Warehouse Pricing And Inventory Clerk Name: Delivery Method: HAND - Hand Delivered Nasreen Days: Prior Verbal Notification: Recipient Understood Notice: Yes Recipient Signature: Yes Med Rec Note Co-signed by Attending: Coverage Notice Comment: Last DP export: 11/18/18 8:38 a Patient Name: SHALONDA GOODWIN Page [phone] at 1003 All edits/amendments must be made on the electronic document DICTATION DATE: 11/18/18 1003 TAX COMPLIANCE REPRESENTATIVE: MACIEL 11/18/18 1003 RPT#: [id number] DC DATE: STATUS: ADM IN [facility] [address] [place] [address] END OF REPORT
[2018-11-18 11:17] VITALS: BP 94/42
--- NOTE | 2018-11-18 13:44 | NUR ---
Rehab Note- The patient is noted to be ambulating 500ft with PT, he also has a pending auth with [facility] SNF per CASPER Estrella note. Thank you for this referral! Breanne Slaughter RN Clinical Liaison, [facility] Rehab
--- NOTE | 2018-11-18 14:25 | NUR ---
Nutrition Follow-up: Pt sleeping; no family at bedside. Chart reviewed Diet: Cardiac, Boost with meals PO intake: 75-100% No new wt Last BM: 11/16 Labs reviewed Meds reviewed Continue current diet as tolerated. RD following.
[2018-11-18 15:23] VITALS: BP 115/54
--- NOTE | 2018-11-18 17:02 | MORECARE ---
CASE MANAGEMENT DISCHARGE SUMMARY PATIENT: SHALONDA GOODWIN UNIT: [id number] ADM DATE: 11/13/18 AGE: 72 : 44 SEX: M ROOM/BED: D.2137 AUTHOR: HUGH,DOC PHYSICIAN: REFERRING PHYSICIAN: CARRIE PAGE MD DATE OF SERVICE: 11/18/18 Discharge Plan Patient Name: SHALONDA GOODWIN Facility: [facility]:[place] : 1945 Planned Disposition: Home with Home Health Anticipated Discharge Date: 11/19/18 Discharge Date: Expected LOS: 6 Initial Reviewer: [email or web address] Initial Review Date: 11/14/2018 Generated: 11/18/18 6:01 pm DCP- Discharge Planning Updated by [id number]: Rayo Floyd on 11/18/18 9:[address] Patient Name: SHALONDA GOODWIN Encounter No: [id number] : 1945 Primary Insurance: [facility] MEDICARE SOLUTIONS Anticipated DC Date: 11-18-2018 Planned Disposition: [facility] Facility External Planned Provider: [facility], MEDICARE REHAB BED DCP follow-up note: CM CALLED AND SPOKE TO KATJA SANTA, DISCUSSED COPAY THAT PT WILL BE RESPONSIBLE FOR ($1,800) FOR INPATIENT REHAB. KATJA STATES THAT IS NOT AN OPTION AND WANTS PT REFERRED TO [facility]. CM MET WITH PT IN ROOM, INFORMED OF ABOVE. PT IN AGREEMENT WITH PLAN, IMPORTANT MESSAGE FROM MEDICARE PROVIDED AND EXPLAINED. CM CALLED [facility], , SPOKE TO CM WHO WILL SCREEN PT FOR ADMISSION, CM ASKED FOR DETERMINATION SOON POSSIBLE PT IS READY FOR DISCHARGE. CM FAXED REFERRAL TO [facility] AT [phone]. CM WAITING ADMISSION DETERMINATION FROM [facility] WELL INSURANCE AUTHORIZATION OR DENIAL FOR REHAB SERVICES. ENRIQUE Ybarra DCP- Discharge Planning Updated by [id number]: Rayo Floyd on 11/15/18 10:[address] Patient Name: SHALONDA GOODWIN Encounter No: [id number] : 1945 Primary Insurance: [facility] MEDICARE SOLUTIONS Anticipated DC Date: Planned Disposition: Inpatient Rehab External Planned Provider: [facility] INPATIENT REHAB DCP follow-up note: CM RECEIVED CALL FROM KATERINE OF [facility], , WHO RECEIVED REFERRAL AND WILL SUBMIT REQUEST FOR INSURANCE AUTHORIZATION FOR REHAB SERVICES. CM WAITING INSURANCE AUTHORIZATION FOR INPATIENT REHAB SERVICES AT [facility]. Rayo Floyd, CASE MANAGEMENT DCP- Discharge Planning Updated by [email or web address]: Rayo Floyd on 11/14/18 4:[address] Patient Name: SHALONDA GOODWIN Admission Status: ER Accout number: [id number] Admission Date: 11-13-2018 : 1945 Admission Diagnosis: Attending: CARRIE PAGE Current LOS: 1 Anticipated DC Date: Planned Disposition: Inpatient Rehab Primary Insurance: [facility] MEDICARE SOLUTIONS PLANNED EXTERNAL PROVIDER: [facility] INPATIENT REHAB Discharge Planning Comments: CM MET WITH PT NIECE AND SISTER IN ROOM TO DISCUSS DISCHARGE PLANNING AND NEEDS. SHALONDA GOODWIN provided verbal consent to discuss current and ongoing needs with/in the presence of: NIECE/ POChantale MATA, SISTER, ILIANA. PT REPORTS LIVING AT HOME INDEPENDENTLY AND ALONE. PT HAS CANE HE DOES NOT USE AND A ROLLING WALKER WITH SEAT; PT HAS NO MEDICAL EQUIPMENT PROVIDER PREFERENCE. PT HAS NO OUTSIDE SERVICES ASSISTING IN THE HOME. PT'S NIECE IS WORKING ON GETTING PERSONAL CARE THROUGH MEDICAID. CM DISCUSSED AVAILABILITY OF HOME HEALTH, REHAB SERVICES AND MEDICAL EQUIPMENT. PT AND FAMILY WANT REHAB AT [facility] AND IF DECLINED, WANTS REHAB AT [facility]. FAMILY WILL PICK PT UP FOR DISCHARGE HOME. CHOICE FOR [facility] SIGNED. CM TO FAX REFERRAL TO [facility] INPATIENT REHAB SOON POSSIBLE PT HAS MANAGED MEDICARE AND WILL REQUIRE PRIOR AUTHORIZATION FOR SERVICES. [address] Vendor: Rayo Floyd DCPIA - Discharge Planning Initial Assessment Updated by [email or web address]: Rayo Floyd on 11/14/18 5:32 pm * Is the patient Alert and Oriented? Yes * How many steps to enter\exit or inside your home? ELEVATOR * PCP DR. PAGE * Pharmacy [facility], [facility]. * Preadmission Environment Home Alone * ADLs Partial Dependent * Partial ADLs (Assistance needed) Bathing Medication Management * Equipment Cane Rolling Walker * Other Equipment NO MEDICAL EQUIPMENT PROVIDER PREFERENCE * List name and contact numbers for known caregivers / representatives who currently or will assist patient after discharge: OLIVIER ANTON / JEANNINE, * Verbal permission to speak to the caregivers and representatives has been obtained from the patient. Yes * Community resources currently utilized None * Please name any agencies selected above. NONE * Additional services required to return to the preadmission environment? Yes * Can the patient safely return to the preadmission environment? Yes * Has this patient been hospitalized within the prior 30 days at any hospital? No Coverage Notice Reviewer: ALCIRA Floyd Notice Issued Date-Time: 11/14/2018 13:40 Notice Type: Patient Choice Letter Notice Delivered To: Family Member Relationship to Patient: Power of Restaurant Worker Bag Turner Name: ESPERANZA SANTA Delivery Method: HAND - Hand Delivered Nasreen Days: Prior Verbal Notification: Recipient Understood Notice: Yes Recipient Signature: Yes Med Rec Note Co-signed by Attending: Coverage Notice Comment: [facility]ILS TO [facility] REHAB Reviewer: ALCIRA Floyd Notice Issued Date-Time: 11/18/2018 9:40 Notice Type: IM Discharge Notice Notice Delivered To: Patient Relationship to Patient: Bag Turner Name: Delivery Method: HAND - Hand Delivered Nasreen Days: Prior Verbal Notification: Recipient Understood Notice: Yes Recipient Signature: Yes Med Rec Note Co-signed by Attending: Coverage Notice Comment: Reviewer: ALCIRA Floyd Notice Issued Date-Time: 11/18/2018 16:10 Notice Type: Patient Choice Letter Notice Delivered To: Family Member Relationship to Patient: Olivier Bag Turner Name: KATJA SANTA Delivery Method: HAND - Hand Delivered Nasreen Days: Prior Verbal Notification: Recipient Understood Notice: Yes Recipient Signature: Yes Med Rec Note Co-signed by Attending: Coverage Notice Comment: [facility] PROVIDER PREFERENCE Last DP export: 11/18/18 9:03 a Patient Name: SHALONDA GOODWIN Page [id number] at 1702 All edits/amendments must be made on the electronic document DICTATION DATE: 11/18/181700 IT INSTRUCTOR: MACIEL 11/18/181700 RPT#: [id number] DC DATE: STATUS: ADM IN [facility] [address] [place] [address] END OF REPORT
--- NOTE | 2018-11-18 17:12 | MORECARE ---
CASE MANAGEMENT DISCHARGE SUMMARY PATIENT: SHALONDA GOODWIN UNIT: [id number] ADM DATE: 11/13/18 AGE: 72 : 43 SEX: M ROOM/BED: D.8719 AUTHOR: MARIANGEL REESE PHYSICIAN: REFERRING PHYSICIAN: CARRIE PAGE MD DATE OF SERVICE: 11/18/18 Discharge Plan Patient Name: SHALONDA GOODWIN Facility: [facility]:[place] : 1945 Planned Disposition: Home with Home Health Anticipated Discharge Date: 11/19/18 Discharge Date: Expected LOS: 6 Initial Reviewer: [id number] Initial Review Date: 11/14/2018 Generated: 11/18/18 6:12 pm Comments DCP- Discharge Planning Updated by [id number]: Rayo Floyd on 11/18/18 4:[address] Patient Name: SHALONDA GOODWIN Encounter No: [id number] : 1945 Primary Insurance: [employer] MEDICARE SOLUTIONS Anticipated DC Date: 11-19-2018 Planned Disposition: Home with Home Health External Planned Provider: [facility] DCP follow-up note: CM MET WITH PT IN ROOM REGARDING DISCHARGE PLANNING AND NEEDS, CM NOTIFED OF INSURANCE DECLINING REHAB AT [facility]. CM DISCUSSED AVAILABILITY OF HOME HEALTH, PROVIDERS AND SERVICES. PT STATES HE WILL ACCEPT HOME HEALTH AND HAS NO PROVIDER PREFERENCE, ASKED CM TO CALL HIS PRAVEEN. CM CALLED AND NOTIFIED DR. PAGE WHO AGREES WITH INSURANCE DETERMINATION; DR WILL REVIEW PT'S CREATINE TOMORROW AND DISCUSS WITH PT AND FAMILY. CM RECEIVED CALL FROM PRAVEEN RENNER, NOTIFIED HER OF INSURANCE DECLINATION OF SKILLED REHAB WITH RECOMMENDATION OF HOME HEALTH. SHE WOULD LIKE ARRANGEMENT WITH [facility]. CHOICE COMPLETED. PT AND KATJA MORTON, WILL ACCEPT HOME HEALTH FOR NURSING AND THERAPY. CM TO ARRANGE [facility] WITH PHYSICIAN AGREEMENT AND ORDERS. ENRIQUE Ybarra DCP- Discharge Planning Updated by [id number]: Rayo Floyd on 11/18/18 9:[address] Patient Name: SHALONDA GOODWIN Encounter No: [id number] : 1945 Primary Insurance: [employer] MEDICARE SOLUTIONS Anticipated DC Date: 11-18-2018 Planned Disposition: Longterm Facility External Planned Provider: [facility] B[facility] DCP follow-up note: CM CALLED AND SPOKE TO KATJA SANTA, DISCUSSED COPAY THAT PT WILL BE RESPONSIBLE FOR ($1,800) FOR INPATIENT REHAB. KATJA STATES THAT IS NOT AN OPTION AND WANTS PT REFERRED TO [facility]. CM MET WITH PT IN ROOM, INFORMED OF ABOVE. PT IN AGREEMENT WITH PLAN, IMPORTANT MESSAGE FROM MEDICARE PROVIDED AND EXPLAINED. CM CALLED [facility], , SPOKE TO CM WHO WILL SCREEN PT FOR ADMISSION, CM ASKED FOR DETERMINATION SOON POSSIBLE PT IS READY FOR DISCHARGE. CM FAXED REFERRAL TO [facility] AT [phone]. CM WAITING ADMISSION DETERMINATION FROM [facility] WELL INSURANCE AUTHORIZATION OR DENIAL FOR REHAB SERVICES. Rayo Floyd CASE MANAGEMENT DCP- Discharge Planning Updated by [email or web address]: Rayo Floyd on 11/15/18 10:[address] Patient Name: SHALONDA GOODWIN Encounter No: [id number] : 1945 Primary Insurance: [facility] MEDICARE SOLUTIONS Anticipated DC Date: Planned Disposition: Inpatient Rehab External Planned Provider: [facility] INPATIENT REH[facility] DCP follow-up note: CM RECEIVED CALL FROM KATERINE [facility], , WHO RECEIVED REFERRAL AND WILL SUBMIT REQUEST FOR INSURANCE AUTHORIZATION FOR REHAB SERVICES. CM WAITING INSURANCE AUTHORIZATION FOR INPATIENT REHAB SERVICES AT [facility]. ENRIQUE Ybarra DCP- Discharge Planning Updated by [email or web address]: Rayo Floyd on 11/14/18 4:[address] Patient Name: SHALONDA GOODWIN Admission Status: ER Accout number: [id number] Admission Date: 11-13-2018 : 1945 Admission Diagnosis: Attending: CARRIE PAGE Current LOS: 1 Anticipated DC Date: Planned Disposition: Inpatient Rehab Primary Insurance: [facility] MEDICARE SOLUTIONS PLANNED EXTERNAL PROVIDER: [facility] INPATIENT REHAB Discharge Planning Comments: CM MET WITH PT NIECE AND SISTER IN ROOM TO DISCUSS DISCHARGE PLANNING AND NEEDS. SHALONDA GOODWIN provided verbal consent to discuss current and ongoing needs with/in the presence of: NIECE/ POA ESPERANZA, SISTER, ILIANA. PT REPORTS LIVING AT HOME INDEPENDENTLY AND ALONE. PT HAS CANE HE DOES NOT USE AND A ROLLING WALKER WITH SEAT; PT HAS NO MEDICAL EQUIPMENT PROVIDER PREFERENCE. PT HAS NO OUTSIDE SERVICES ASSISTING IN THE HOME. PT'S NIECE IS WORKING ON GETTING PERSONAL CARE THROUGH MEDICAID. CM DISCUSSED AVAILABILITY OF HOME HEALTH, REHAB SERVICES AND MEDICAL EQUIPMENT. PT AND FAMILY WANT REHAB AT [facility] AND IF DECLINED, WANTS REHAB AT [facility]. FAMILY WILL PICK PT UP FOR DISCHARGE HOME. CHOICE FOR [facility] SIGNED. CM TO FAX REFERRAL TO [facility] INPATIENT REHAB SOON POSSIBLE PT HAS MANAGED MEDICARE AND WILL REQUIRE PRIOR AUTHORIZATION FOR SERVICES. Senior Project Coordinator: Rayo Floyd DCPIA - Discharge Planning Initial Assessment Updated by [email or web address]: Rayo Floyd on 11/14/18 5:32 pm * Is the patient Alert and Oriented? Yes * How many steps to enter\exit or inside your home? ELEVATOR * PCP DR. PAGE * Pharmacy [facility]. * Preadmission Environment Home Alone * ADLs Partial Dependent * Partial ADLs (Assistance needed) Bathing Medication Management * Equipment Cane Rolling Walker * Other Equipment NO MEDICAL EQUIPMENT PROVIDER PREFERENCE * List name and contact numbers for known caregivers / representatives who currently or will assist patient after discharge: ESPERANZA SANTA, PRAVEEN / JEANNINE, * Verbal permission to speak to the caregivers and representatives has been obtained from the patient. Yes * Community resources currently utilized None * Please name any agencies selected above. NONE * Additional services required to return to the preadmission environment? Yes * Can the patient safely return to the preadmission environment? Yes * Has this patient been hospitalized within the prior 30 days at any hospital? No Coverage Notice Reviewer: [id number] John Floyd Notice Issued Date-Time: 11/14/2018 13:40 Notice Type: Patient Choice Letter Notice Delivered To: Family Member Relationship to Patient: Power of Pork Cutlet Maker Station Chief Name: ESPERANZA KIET Delivery Method: HAND - Hand Delivered Nasreen Days: Prior Verbal Notification: Recipient Understood Notice: Yes Recipient Signature: Yes Med Rec Note Co-signed by Attending: Coverage Notice Comment: [facility], SECOND CHOICE TO [facility] INPATIENT REHAB Reviewer: [id number] John Floyd Notice Issued Date-Time: 11/18/2018 16:10 Notice Type: Patient Choice Letter Notice Delivered To: Family Member Relationship to Patient: Niece Station Chief Name: KATJA SANTA Delivery Method: HAND - Hand Delivered Nasreen Days: Prior Verbal Notification: Recipient Understood Notice: Yes Recipient Signature: Yes Med Rec Note Co-signed by Attending: Coverage Notice Comment: [facility] PROVIDER PREFERENCE Reviewer: [id number] John Floyd Notice Issued Date-Time: 11/18/2018 9:40 Notice Type: IM Discharge Notice Notice Delivered To: Patient Relationship to Patient: Station Chief Name: Delivery Method: HAND - Hand Delivered Nasreen Days: Prior Verbal Notification: Recipient Understood Notice: Yes Recipient Signature: Yes Med Rec Note Co-signed by Attending: Coverage Notice Comment: Last DP export: 11/18/18 4:02 p Patient Name: SHALONDA GOODWIN Page [phone] at 1712 All edits/amendments must be made on the electronic document DICTATION DATE: 11/18/181711 SALES AMBASSADOR: MACIEL 11/18/181711 RPT#: [id number] DC DATE: STATUS: ADM IN [facility] [address] [place] [address] END OF REPORT
--- NOTE | 2018-11-18 18:13 | NUR ---
ALERT AND ORIENTED X4. SITTING UP IN BED WATCHING TV. DENIES SOB OR PAIN. CONTINUE PLAN OF CARE AND SAFETY PRECAUTIONS. SINUS LARS 55 ON TELEMETRY.
--- NOTE | 2018-11-18 19:26 | NUR ---
OT NOTE: PT COMPLETED BED MOB WITH SPV. PT COMPLETED ADL MOB WITH SBA. PT COMPLETED TOILETING TASKS WITH SBA. THANK YOU, TED IVEY
[2018-11-18 20:00] VITALS: BP 126/52
[2018-11-19] VITALS: BP 104/51
--- NOTE | 2018-11-19 03:25 | NUR ---
I have reviewed this patient and I concur with the Shift Assessment completed by the Licensed Practical Nurse today this shift.
[2018-11-19 04:00] VITALS: BP 121/55
[2018-11-19 05:41] LABS: CALCIUM 8.8 mg/dL (8.5-10.1); CARBON DIOXIDE 29.6 mmol/L (21.0-32.0); POTASSIUM - SERUM 4.6 mmol/L (3.5-5.1)
[2018-11-19 06:11] LABS: BASOPHILS 0.6 % (0-2); EOSINOPHILS 6.3 % (0-7); HEMATOCRIT 36.9 % (42.0-54.0); HEMOGLOBIN 12.3 g/dL (13.5-17.5); IMMATURE GRANULOCYTES 0.3 % (0-5); MCH 28.5 pg (26.0-34.0); MCHC 33.3 g/dL (31.0-37.0); MCV 85.4 fL (80.0-100.0); MEAN PLATELET VOLUME 9.3 fL (7.4-10.4); NEUTROPHILS 48.8 % (40-80); PLATELET COUNT 237 10x3/uL (130-400); RBC 4.32 10x6/uL (4.20-6.10); RDW 15.1 % (11.5-14.5); WBC 7.1 10x3/uL (4.8-10.8)
--- NOTE | 2018-11-19 07:36 | NUR ---
PATIENT IS SITTING UP IN BED, AWAKE AND ALERT, SEEMS IN GOOD MOOD. DENIES ANY NEEDS AT THIS TIME.
[2018-11-19 08:39] VITALS: BP 112/58
--- NOTE | 2018-11-19 10:45 | NUR ---
CALLED DR PAGE AND REPORTED THE B/P OF . TOLD HIS NURSE THAT THE PATIENT WANTS TO BE DISCHARGED BECAUSE IT IS HIS BIRTHDAY.
[2018-11-19 11:34] VITALS: BP 89/44
[2018-11-19 15:42] VITALS: BP 126/63
[2018-11-19 21:01] VITALS: BP 107/54
[2018-11-20] VITALS: BP 141/64
[2018-11-20 04:00] VITALS: BP 118/55
[2018-11-20 08:00] VITALS: BP 127/59
--- NOTE | 2018-11-20 10:13 | NUR ---
PT UP WALKING WITH P.T. WITH WALKER.
--- NOTE | 2018-11-20 11:48 | NUR ---
OT NOTE: PT PERFORMED VERY WELL TODAY. BED MOB WITH MIN ASSIST. CONT TO EXHIBIT POOR SAFETY AWARNESS. ATTEMPTED TO AMB TO BATHROOM WITHOUT ASSIST BUT VERY UNSTEADY WITHOUT USE OF WALKER. PT PERFORMED TOILETING WITH CGA. ABLE TO MONI AND DOFF BRIEF WITH MIN ASSIST; MIN ASSIST TO MONI GOWN; SBA TO PERFORM SINK HYGIENE WITH USE OF WASHCLOTH. AMB GREATER THAN 200 FT WITH MIN ASSIST, WALKER, AND IV. HUA LOPEZ, OTR/L
--- NOTE | 2018-11-20 11:48 | NUR ---
I have reviewed this patient and I concur with the Shift Assessment completed by the Licensed Practical Nurse today this shift.
[2018-11-20 12:00] VITALS: BP 114/54
--- NOTE | 2018-11-20 14:43 | NUR ---
OT NOTE: PT COMPLETED TOILETING AND HYGIENE WITH SBA. PT COMPLETED ADL MOB WITH CGA. PT COMPLETED FACE WASH AT SINK LEVEL WITH SBA. THANK YOU, TED IVEY
--- NOTE | 2018-11-20 14:47 | NUR ---
RIGHT FA 20G IV LEAKING. DC'D WITH CATH INTACT. LEFT FA 22G IV INSERTED ON X2 ATTEMPT. NS INFUSING AT 100ML/HR.
[2018-11-20 15:04] LABS: ANION GAP 11.7 mmol/L (8-16); CALCIUM 8.5 mg/dL (8.5-10.1); CARBON DIOXIDE 27.7 mmol/L (21.0-32.0)
[2018-11-20 15:12] LABS: CREATININE - SERUM 1.3 mg/dL (0.6-1.3); POTASSIUM - SERUM 5.4 mmol/L (3.5-5.1)
[2018-11-20 16:00] VITALS: BP 124/59
--- NOTE | 2018-11-20 19:15 | NUR ---
PT CARE ASSUMED. BEDSIDE SHIFT REPORT COMPLETE. PT IN BED RR EVEN AND UNLABORED. NO S/S OF DISTRESS NOTED AT THIS TIME. CALL LIGHT IN REACH. WILL CTM.
[2018-11-21] VITALS: BP 117/56
--- NOTE | 2018-11-21 01:34 | NUR ---
PT TOOK A SHOWER. GAIT SLOW AND UNSTEADY. IV CONT TO INFUSE AT 100ML/HR PER ORDER. NO FURTHER VOICED C/O OR CONCERNS. CALL LIGHT IN REACH. WILL CTM.
[2018-11-21 04:00] VITALS: BP 131/51
[2018-11-21 05:33] LABS: BASOPHILS 0.5 % (0-2); EOSINOPHILS 5.5 % (0-7); HEMATOCRIT 35.8 % (42.0-54.0); HEMOGLOBIN 11.9 g/dL (13.5-17.5); IMMATURE GRANULOCYTES 0.4 % (0-5); LYMPHOCYTES 37.5 % (15-50); MCHC 33.2 g/dL (31.0-37.0); MCV 87.1 fL (80.0-100.0); MEAN PLATELET VOLUME 9.7 fL (7.4-10.4); MONOCYTES 10.3 % (2-11); NEUTROPHILS 45.8 % (40-80); RBC 4.11 10x6/uL (4.20-6.10); RDW 15.6 % (11.5-14.5); WBC 7.7 10x3/uL (4.8-10.8)
[2018-11-21 05:46] LABS: PLATELET COUNT 184 10x3/uL (130-400)
[2018-11-21 06:02] LABS: CALC OSMOLALITY 286 mosm/kg (275-300); CARBON DIOXIDE 25.8 mmol/L (21.0-32.0); CHLORIDE - SERUM 105 mmol/L (98-107); GLUCOSE 96 mg/dL (74-106); POTASSIUM - SERUM 5.9 mmol/L (3.5-5.1); SODIUM 138 mmol/L (136-145); UREA NITROGEN 43 mg/dL (7-18); eGFR NON AFRICAN AMERICAN 78 mL/min (90-120)
--- NOTE | 2018-11-21 07:45 | NUR ---
A/A/0X4. DENIES ANY PAIN OR DISCOMFORT AND VOICES NO REQUESTS. IV PATENT TO LEFT FOREARM WITH NO REDNESS OR EDEMA NOTED AT SITE. ASSESSMENT COMPLETED AND WILL CONTINUE POC.
[2018-11-21 08:00] VITALS: BP 134/68
[2018-11-21 12:00] VITALS: BP 138/60
--- NOTE | 2018-11-21 12:15 | NUR ---
I have reviewed this patient and I concur with the Shift Assessment completed by the Licensed Practical Nurse today this shift.
--- NOTE | 2018-11-21 12:36 | NUR ---
OT NOTE: BED MOB WITH SPV; AMB TO BATHROOM WITH PIANO ACCOMPANIST AND FAIR BALANCE. ABLE TO STAND AT TOILET WHILE HOLDING ON TO DOORFRAME, BUT STILL HAS DIFFICULTY WITH TOILETING, HE URINATES ON BRIEF AND IN THE FLOOR. DONNED CLEAN BRIEF WITH MIN ASSIST. WASHED HANDS AT SINK WITH CGA. MIN ASSIST FOR IN ROOM AMBULATION WITHOUT USE OF WALKER. HUA LOPEZ, OTR/L
--- NOTE | 2018-11-21 13:00 | NUR ---
ORDERED CT SCAN OF CHEST, ABD AND PELVIS. PER CT DEPT PT IS TO BE NPO. PT INSTRUCTED ON NPO AND VERBALIZES UNDERSTANDING. IVF DC'D ORDERED.
[2018-11-21 16:18] VITALS: BP 146/62
--- NOTE | 2018-11-21 17:09 | MORECARE ---
CASE MANAGEMENT DISCHARGE SUMMARY PATIENT: SHALONDA GOODWIN UNIT: [id number] ADM DATE: 11/13/18 AGE: 73 : 44 SEX: M ROOM/BED: D.2138 AUTHOR: HUGH,DOC PHYSICIAN: REFERRING PHYSICIAN: CARRIE PAGE MD DATE OF SERVICE: 11/21/18 Discharge Plan Patient Name: SHALONDA GOODWIN Facility: [facility]:[place] : 1945 Planned Disposition: Home with Home Health Anticipated Discharge Date: 11/19/18 Discharge Date: Expected LOS: 6 Initial Reviewer: [id number] Initial Review Date: 11/14/2018 Generated: 11/21/18 6:09 pm Comments DCP- Discharge Planning Updated by [id number]: Rayo Floyd on 11/21/18 4:[address] Patient Name: SHALONDA GOODWIN Encounter No: [id number] : 1945 Primary Insurance: [employer] MEDICARE SOLUTIONS Anticipated DC Date: 11-19-2018 Planned Disposition: Home with Home Health External Planned Provider: [facility] DCP follow-up note: CM MET WITH PT AND NIECE IN ROOM, PROVIDED INSURANCE DENIAL OF REHAB AT [facility]. BOTH PT AND NIECE STILL IN AGREEEMENT WITH DISCHARGE HOME WITH [facility]. COPY OF INSURANCE [facility] REHAB DENIAL PLACED IN CHART. PT AND NIECE, KATJA, WILL ACCEPT HOME HEALTH FOR NURSING AND THERAPY. CM TO ARRANGE [facility] SERVICES WITH PHYSICIAN AGREEMENT AND ORDERS. ENRIQUE Ybarra DCP- Discharge Planning Updated by [email or web address]: Rayo Floyd on 11/18/18 4:[address] Patient Name: SHALONDA GOODWIN Encounter No: [id number] : 1945 Primary Insurance: [facility] MEDICARE SOLUTIONS Anticipated DC Date: 11-19-2018 Planned Disposition: Home with Home Health External Planned Provider: [facility] DCP follow-up note: CM MET WITH PT IN ROOM REGARDING DISCHARGE PLANNING AND NEEDS, CM NOTIFED OF INSURANCE DECLINING REHAB AT [facility]. CM DISCUSSED AVAILABILITY OF HOME HEALTH, PROVIDERS AND SERVICES. PT STATES HE WILL ACCEPT HOME HEALTH AND HAS NO PROVIDER PREFERENCE, ASKED CM TO CALL HIS NIECE. CM CALLED AND NOTIFIED DR. PAGE WHO AGREES WITH INSURANCE DETERMINATION; DR WILL REVIEW PT'S CREATINE TOMORROW AND DISCUSS WITH PT AND FAMILY. CM RECEIVED CALL FROM KATJA SANTA, KIYAKIZZY, NOTIFIED HER OF INSURANCE DECLINATION OF SKILLED REHAB WITH RECOMMENDATION OF HOME HEALTH. SHE WOULD LIKE ARRANGEMENT WITH [facility]. CHOICE COMPLETED. PT AND NIECE, KATJA, WILL ACCEPT HOME HEALTH FOR NURSING AND THERAPY. CM TO ARRANGE [facility] SERVICES WITH PHYSICIAN AGREEMENT AND ORDERS. ENRIQUE Ybarra MANAGEMENT DCP- Discharge Planning Updated by [id number]: Rayo Floyd on 11/18/18 9:[address] Patient Name: SHALONDA GOODWIN Encounter No: [id number] : 1945 Primary Insurance: [facility] MEDICARE SOLUTIONS Anticipated DC Date: 11-18-2018 Planned Disposition: Custodial Facility External Planned Provider: [facility] DCP follow-up note: CM CALLED AND SPOKE TO KATJA SANTA, DISCUSSED COPAY THAT PT WILL BE RESPONSIBLE FOR ($1,800) FOR INPATIENT REHAB. KTAJA STATES THAT IS NOT AN OPTION AND WANTS PT REFERRED TO [facility]. CM MET WITH PT IN ROOM, INFORMED OF ABOVE. PT IN AGREEMENT WITH PLAN, IMPORTANT MESSAGE FROM MEDICARE PROVIDED AND EXPLAINED. CM CALLED [facility], , SPOKE TO CM WHO WILL SCREEN PT FOR ADMISSION, CM ASKED FOR DETERMINATION SOON POSSIBLE PT IS READY FOR DISCHARGE. CM FAXED REFERRAL TO [facility] AT [phone]. CM WAITING ADMISSION DETERMINATION FROM [facility] WELL INSURANCE AUTHORIZATION OR DENIAL FOR REHAB SERVICES. ENRIQUE Ybarra DCP- Discharge Planning Updated by [id number]: Rayo Floyd on 11/15/18 10:[address] Patient Name: SHALONDA GOODWIN Encounter No: [id number] : 1945 Primary Insurance: [facility] MEDICARE SOLUTIONS Anticipated DC Date: Planned Disposition: Inpatient Rehab External Planned Provider: [facility] INPATIENT [facility] DCP follow-up note: CM RECEIVED CALL FROM KATERINE [facility], , WHO RECEIVED REFERRAL AND WILL SUBMIT REQUEST FOR INSURANCE AUTHORIZATION FOR REHAB SERVICES. CM WAITING INSURANCE AUTHORIZATION FOR INPATIENT REHAB SERVICES AT [facility]. Rayo Floyd, CASE MANAGEMENT DCP- Discharge Planning Updated by [email or web address]: Rayo Floyd on 11/14/18 4:[address] Patient Name: SHALONDA GOODWIN Admission Status: ER Accout number: [id number] Admission Date: 11-13-2018 : 1945 Admission Diagnosis: Attending: CARRIE PAGE Current LOS: 1 Anticipated DC Date: Planned Disposition: Inpatient Rehab Primary Insurance: [facility] MEDICARE SOLUTIONS PLANNED EXTERNAL PROVIDER: [facility] INPATIENT [facility] Discharge Planning Comments: CM MET WITH PT NIECE AND SISTER IN ROOM TO DISCUSS DISCHARGE PLANNING AND NEEDS. SHALONDA GOODWIN provided verbal consent to discuss current and ongoing needs with/in the presence of: NIECE/ POChantale MATA, SISTER, ILIANA. PT REPORTS LIVING AT HOME INDEPENDENTLY AND ALONE. PT HAS CANE HE DOES NOT USE AND A ROLLING WALKER WITH SEAT; PT HAS NO MEDICAL EQUIPMENT PROVIDER PREFERENCE. PT HAS NO OUTSIDE SERVICES ASSISTING IN THE HOME. PT'S NIECE IS WORKING ON GETTING PERSONAL CARE THROUGH MEDICAID. CM DISCUSSED AVAILABILITY OF HOME HEALTH, REHAB SERVICES AND MEDICAL EQUIPMENT. PT AND FAMILY WANT REHAB AT [facility] AND IF DECLINED, WANTS REHAB AT [facility]. FAMILY WILL PICK PT UP FOR DISCHARGE HOME. CHOICE FOR [facility] SIGNED. CM TO FAX REFERRAL TO [facility] INPATIENT REHAB SOON POSSIBLE PT HAS MANAGED MEDICARE AND WILL REQUIRE PRIOR AUTHORIZATION FOR SERVICES. Lead Radiation Therapist: Rayo Floyd DCPIA - Discharge Planning Initial Assessment Updated by [id number]: Rayo Floyd on 11/14/18 5:32 pm * Is the patient Alert and Oriented? Yes * How many steps to enter\exit or inside your home? ELEVATOR * PCP DR. PAGE * Pharmacy [facility]. * Preadmission Environment Home Alone * ADLs Partial Dependent * Partial ADLs (Assistance needed) Bathing Medication Management * Equipment Cane Rolling Walker * Other Equipment NO MEDICAL EQUIPMENT PROVIDER PREFERENCE * List name and contact numbers for known caregivers / representatives who currently or will assist patient after discharge: ESPERANZA SANTA, PRAVEEN / JEANNINE, * Verbal permission to speak to the caregivers and representatives has been obtained from the patient. Yes * Community resources currently utilized None * Please name any agencies selected above. NONE * Additional services required to return to the preadmission environment? Yes * Can the patient safely return to the preadmission environment? Yes * Has this patient been hospitalized within the prior 30 days at any hospital? No Coverage Notice Reviewer: ALCIRA Floyd Notice Issued Date-Time: 11/14/2018 13:40 Notice Type: Patient Choice Letter Notice Delivered To: Family Member Relationship to Patient: Power of Rv Body Mechanic Spouter Name: ESPERANZA SANTA Delivery Method: HAND - Hand Delivered Nasreen Days: Prior Verbal Notification: Recipient Understood Notice: Yes Recipient Signature: Yes Med Rec Note Co-signed by Attending: Coverage Notice Comment: [facility] CHOICE TO [facility] RE[facility] Reviewer: [id number] Floyd Notice Issued Date-Time: 11/18/2018 9:40 Notice Type: IM Discharge Notice Notice Delivered To: Patient Relationship to Patient: Spouter Name: Delivery Method: HAND - Hand Delivered Nasreen Days: Prior Verbal Notification: Recipient Understood Notice: Yes Recipient Signature: Yes Med Rec Note Co-signed by Attending: Coverage Notice Comment: Reviewer: ALCIRA Floyd Notice Issued Date-Time: 11/18/2018 16:10 Notice Type: Patient Choice Letter Notice Delivered To: Family Member Relationship to Patient: Niece Spouter Name: KATJA SANTA Delivery Method: HAND - Hand Delivered Nasreen Days: Prior Verbal Notification: Recipient Understood Notice: Yes Recipient Signature: Yes Med Rec Note Co-signed by Attending: Coverage Notice Comment: [facility] PROVIDER PREFERENCE Last DP export: 11/18/18 4:12 p Patient Name: SHALONDA GOODWIN Page 43564 at 1709 All edits/amendments must be made on the electronic document DICTATION DATE: 11/21/181707 WATER PUMPER: MACIEL 11/21/181707 RPT#: [id number] DC DATE: STATUS: ADM IN [facility] [address] [place] [address] END OF REPORT
--- NOTE | 2018-11-21 18:40 | NUR ---
WHEN I WAS IN PTS ROOM EARLIER HE WAS MUMBLING UNDER HIS BREATH AND POINTING ACROSS THE ROOM RAISING VOICE AT TIMES. WHEN I ASKED WHO HE WAS TALKING TO, HE STATED HE WAS TALKING TO HIMSELF.
--- NOTE | 2018-11-21 19:25 | NUR ---
PT CARE ASSUMED. PT IN BED RR EVEN AND UNLABORED ON RA. NO S/S OF DISTRESS NOTED. NO VOICED C/O OR CONCERNS NOTED AT THIS TIME. BEDSIDE SHIFT REPORT COMPLETE. CALL LIGHT IN REACH. WILL CPOC.
[2018-11-21 20:00] VITALS: BP 145/58
[2018-11-22] VITALS (7 sets, daily range): BP systolic 133–164; BP diastolic 55–69
[2018-11-22 06:37] LABS: BASOPHILS 0.6 % (0-2); EOSINOPHILS 6.9 % (0-7); HEMATOCRIT 37.5 % (42.0-54.0); HEMOGLOBIN 12.6 g/dL (13.5-17.5); IMMATURE GRANULOCYTES 0.2 % (0-5); LYMPHOCYTES 38.1 % (15-50); MCHC 33.6 g/dL (31.0-37.0); MCV 86.4 fL (80.0-100.0); MONOCYTES 10.1 % (2-11); NEUTROPHILS 44.1 % (40-80); RBC 4.34 10x6/uL (4.20-6.10); RDW 15.5 % (11.5-14.5)
[2018-11-22 06:44] LABS: PLATELET COUNT 267 10x3/uL (130-400)
[2018-11-22 06:53] LABS: ANION GAP 11.1 mmol/L (8-16); CALCIUM 9.1 mg/dL (8.5-10.1); CREATININE - SERUM 1.1 mg/dL (0.6-1.3); POTASSIUM - SERUM 5.1 mmol/L (3.5-5.1)
--- NOTE | 2018-11-22 07:30 | NUR ---
PT RESTING IN BED, SHIFT ASSESSMENT PERFORMED. CALL LIGHT WITHIN REACH. DENIES ANY NEEDS AT THIS TIME, WILL CONT TO FOLLOW POC
--- NOTE | 2018-11-22 12:02 | NUR ---
PT RESTING IN BED EATING LUNCH. DENIES ANY NEEDS AT THIS TIME, CALL LIGHT WITHIN REACH. WILL CONT TO FOLLOW POC
--- NOTE | 2018-11-22 12:47 | NUR ---
Nutrition Follow-up: Pt reports good appetite/PO intake. Diet: Cardiac PO intake: 74% avg x 9 meals No new wt Last BM: 11/22 Labs noted: K+ 5.1 Meds reviewed Continue current diet as tolerated. RD following.
--- NOTE | 2018-11-22 14:40 | NUR ---
OT NOTE: PT PERFORMED WELL TODAY. BED MOB WITH SPV; AMB TO TOILET WITH MIN ASSIST/RELAY TECHNICIAN; TOILET TRANSFER WITH CGA; TOILET HYGIENE WITH MIN ASSIST. AMB TO SINK WITH MIN ASSIST AND LOB X 2. STANDING AT SINK TO PERFORM SINK BATH WITH MIN ASSIST FOR BALANCE. AMB JUST A FEW FT BACK TO BED AND PT ALMOST FELL AGAIN. INSTRUCTED PT TO USE WALKER FROM HERE ON OUT IN ROOM HE IS A HIGH FALL RISK. MIN ASSIST TO MONI PULL UPS AND SOCKS. MIN ASSIST WITH GOWN. EXPLAINED TO PT THAT I WOULD BE BACK TO WALK WITH HIM. SEVERAL MIN LATER, PT WAS AMB DOWN THE HALLWAY WITH WALKER. ASSISTED PT WITH REMAINDER OF WALK WHICH WAS GREATER THAN 250'. LATER IN DAY, PT WAS AMB AROUND [facility] NURSING DESK AND PT WAS ASSISTED BACK TO ROOM. EDUCATED NOT TO AMB WITHOUT ASSIST. PT DOES WELL WITH WALKER, HOWEVER, HE DOES NOT REMEMBER TO USE IT IN HIS ROOM. HUA LOPEZ, OTR/L
--- NOTE | 2018-11-22 18:34 | NUR ---
PT RESTING IN BED, CALL LIGHT WITHIN REACH. DENIES ANY NEEDS AT THIS TIME, WILL CONT TO FOLLOW POC
[2018-11-23 04:13] VITALS: BP 139/65
[2018-11-23 06:21] LABS: BASOPHILS 0.3 % (0-2); EOSINOPHILS 3.7 % (0-7); HEMATOCRIT 37.5 % (42.0-54.0); HEMOGLOBIN 12.5 g/dL (13.5-17.5); IMMATURE GRANULOCYTES 0.3 % (0-5); LYMPHOCYTES 29.9 % (15-50); MCH 28.8 pg (26.0-34.0); MCHC 33.3 g/dL (31.0-37.0); MCV 86.4 fL (80.0-100.0); MEAN PLATELET VOLUME 9.1 fL (7.4-10.4); MONOCYTES 10.6 % (2-11); NEUTROPHILS 55.2 % (40-80); PLATELET COUNT 257 10x3/uL (130-400); RBC 4.34 10x6/uL (4.20-6.10); RDW 15.5 % (11.5-14.5); WBC 9.5 10x3/uL (4.8-10.8)
[2018-11-23 06:37] LABS: ANION GAP 14.9 mmol/L (8-16); CALCIUM 9.2 mg/dL (8.5-10.1); CARBON DIOXIDE 26.4 mmol/L (21.0-32.0); CREATININE - SERUM 1.1 mg/dL (0.6-1.3); POTASSIUM - SERUM 5.3 mmol/L (3.5-5.1)
--- NOTE | 2018-11-23 06:45 | NUR ---
EVENING ROUNDS COMPLETED. VSS, AAOX3, NO S/S OF RESP DISTRESS, RR EVEN AND UNLABORED. PT DENIES ANY FURTHER NEEDS AT THIS TIME. WILL CPOC.
--- NOTE | 2018-11-23 07:20 | NUR ---
PT SITTING IN BED WITH HOB ELEVATED. WATCHING TV. ROOM AIR. PT HAS NO FURTHER NEEDS AT THIS TIME. BED LOW. CL IN REACH.
[2018-11-23 08:00] VITALS: BP 127/58
[2018-11-23 12:00] VITALS: BP 149/75
[2018-11-23 16:11] VITALS: BP 124/59
--- NOTE | 2018-11-23 16:45 | NUR ---
PT SITTING UP IN BED WITH HOB ELEVATED. FAMILY AT BEDSIDE. PT HAS NO FURTHER NEEDS AT THIS TIME. BED LOW. CL IN REACH.
--- NOTE | 2018-11-23 19:20 | NUR ---
RECIEVED BEDSIDE REPORT. UP IN BED WITH EYES OPEN AND TV ON. ALERT AND ORIENTED X4. UP AD [place] TO B/R. HAS PRODUCTIVE COUGH AND STATES SPUTUM IS CLEAR. VERY [place]. IV TO LEFT FOREARM. TELEMETRY IN PLACE. DENIES ANY NEEDS AT THIS TIME.
[2018-11-23 20:04] VITALS: BP 133/66
[2018-11-23 23:23] VITALS: BP 136/66
[2018-11-24 06:14] LABS: ANION GAP 12.3 mmol/L (8-16); CALCIUM 8.7 mg/dL (8.5-10.1); CARBON DIOXIDE 26.9 mmol/L (21.0-32.0); POTASSIUM - SERUM 5.2 mmol/L (3.5-5.1)
[2018-11-24 06:25] LABS: BASOPHILS 0.5 % (0-2); HEMATOCRIT 34.5 % (42.0-54.0); HEMOGLOBIN 11.5 g/dL (13.5-17.5); IMMATURE GRANULOCYTES 0.4 % (0-5); LYMPHOCYTES 24.7 % (15-50); MCH 28.5 pg (26.0-34.0); MCHC 33.3 g/dL (31.0-37.0); MCV 85.6 fL (80.0-100.0); MEAN PLATELET VOLUME 9.1 fL (7.4-10.4); MONOCYTES 11.2 % (2-11); NEUTROPHILS 58.2 % (40-80); PLATELET COUNT 260 10x3/uL (130-400); RBC 4.03 10x6/uL (4.20-6.10); RDW 15.6 % (11.5-14.5); WBC 7.7 10x3/uL (4.8-10.8)
[2018-11-24 06:30] LABS: CREATININE - SERUM 1.4 mg/dL (0.6-1.3)
--- NOTE | 2018-11-24 07:30 | NUR ---
ALERT AND ORIENTED X4. ASSIST TO RESTROOM MINIMAL ASSIST. ASSIST BACK TO BED. SINUS RHYTHM 63 ON TELEMETRY.DENIES ANY NEEDS AT THIS TIME. CONTINUE PLAN OF CARE AND SAFETY PRECAUTIONS.
[2018-11-24 08:00] VITALS: BP 140/53
[2018-11-24 12:00] VITALS: BP 141/55
[2018-11-24 16:00] VITALS: BP 155/68
--- NOTE | 2018-11-24 16:46 | NUR ---
22 GAUGE IV PLACED TO RIGHT FOREARM X 1 STICK. GOOD BLOOD RETURN, EASY FLUSH. TAPED, DATED, AND SECURED. PATIENT TOLERATED IV PLACEMENT WELL. IV ABX NOW INFUSING. 22 GAUGE IV REMOVED FROM LEFT FOREARM. CATHETER TIP INTACT. NO BLEEDING FROM SITE. 2X2 GAUZE APPLIED AND SECURED WITH TAPE. NO DISTRESS. TOLERATED IV REMOVAL WELL.
--- NOTE | 2018-11-24 19:17 | NUR ---
AWAKE AND ALERT LCTA SKIN WARM AND DRY BED LOW AND LOCKED AND SR X3 CALL LIGHT IS IN REACH DENIES NEEDS AT THIS TIME.
[2018-11-24 20:23] VITALS: BP 133/58
[2018-11-25 00:11] VITALS: BP 140/62
--- NOTE | 2018-11-25 00:49 | NUR ---
I have reviewed this patient and I concur with the Shift Assessment completed by the Licensed Practical Nurse today this shift.
--- NOTE | 2018-11-25 00:49 | NUR ---
I have reviewed this patient and I concur with the Shift Assessment completed by the Licensed Practical Nurse today this shift.
[2018-11-25 04:24] VITALS: BP 137/56
[2018-11-25 06:26] LABS: BASOPHILS 0.3 % (0-2); EOSINOPHILS 3.7 % (0-7); HEMATOCRIT 34.8 % (42.0-54.0); HEMOGLOBIN 11.6 g/dL (13.5-17.5); IMMATURE GRANULOCYTES 0.4 % (0-5); LYMPHOCYTES 20.1 % (15-50); MCH 28.4 pg (26.0-34.0); MCHC 33.3 g/dL (31.0-37.0); MCV 85.3 fL (80.0-100.0); MEAN PLATELET VOLUME 9.2 fL (7.4-10.4); MONOCYTES 8.7 % (2-11); NEUTROPHILS 66.8 % (40-80); PLATELET COUNT 249 10x3/uL (130-400); RBC 4.08 10x6/uL (4.20-6.10); RDW 15.7 % (11.5-14.5)
[2018-11-25 06:49] LABS: CALC OSMOLALITY 278 mosm/kg (275-300); CALCIUM 9.4 mg/dL (8.5-10.1); CARBON DIOXIDE 26.6 mmol/L (21.0-32.0); CHLORIDE - SERUM 100 mmol/L (98-107); GLUCOSE 100 mg/dL (74-106); POTASSIUM - SERUM 4.7 mmol/L (3.5-5.1); SODIUM 136 mmol/L (136-145); UREA NITROGEN 32 mg/dL (7-18); eGFR NON AFRICAN AMERICAN 78 mL/min (90-120)
[2018-11-25 06:51] LABS: WBC 10.3 10x3/uL (4.8-10.8)
--- NOTE | 2018-11-25 07:40 | NUR ---
RECIEVED REPORT. SITTING UP IN BED. ALERT AND ORIENTED X4. DENIES ANY NEEDS AT THIS TIME. CONTINUE PLAN OF CARE AND SAFETY PRECAUTIONS.
[2018-11-25 07:53] VITALS: BP 135/58
[2018-11-25 11:03] VITALS: BP 116/46
--- NOTE | 2018-11-25 14:03 | NUR ---
ALERT AND ORIENTED X4. RESTING IN BED WATCHING TV. CONSENTS FOR PROCEDURE SIGNED ON CHART. DENIES ANY NEEDS AT THIS TIME. CONTINUE PLAN OF CARE AND SAFETY PRECAUTIONS.
--- NOTE | 2018-11-25 14:48 | NUR ---
OT NOTE: PT COMPLETED BED MOB WITH SBA. PT COMPLETED STANDING BALANCE WITH SBA. PT COMPLETED BUE AROM EXS. PT COMPLETED FACE WASH WITH SET UP. PT REQUIRED CUES FOR INCREASED SAFETY . THANK YOU, TED IVEY
[2018-11-25 15:37] VITALS: BP 142/61
--- NOTE | 2018-11-25 19:44 | NUR ---
ASSISTED WITH RESTROMM AND COMFORT WITH BED PT DENIES OTHER NEEDS SKIN WARM AND DRY BED IUS LOW AND LOCKD CALL LIGHT WITH PT
[2018-11-25 20:00] VITALS: BP 122/55
[2018-11-26] VITALS: BP 143/68
--- NOTE | 2018-11-26 04:33 | NUR ---
FOUND IV TO BE INFILTRATED POST SHOWER
--- NOTE | 2018-11-26 04:50 | NUR ---
I have reviewed this patient and I concur with the Shift Assessment completed by the Licensed Practical Nurse today this shift.
--- NOTE | 2018-11-26 05:53 | NUR ---
RESTARTED IV TO LEFT FA WITH 20 GAUGE AND DCED INFILTRATED IV WITH CATH INTACT
[2018-11-26 08:00] VITALS: BP 128/66
--- NOTE | 2018-11-26 09:18 | NUR ---
AM MEDS GIVEN, PT HAD NO TROUBLE SWALLOWING PILLS. PT A/O X4, RESP EVEN AND NONLABORED ON RA. LT FA IV INFUSING NS AT 75CC/HR. MONITOR SHOWING SB WITH RATE OF 54. PT DENIES ANY NEEDS AT THIS TIME. CALL LIGHT IN REACH, NAD NOTED, WILL CONTINUE PLAN OF CARE.
[2018-11-26 12:24] VITALS: BP 130/55
--- NOTE | 2018-11-26 15:26 | NUR ---
OT NOTE: PT COMPLETED BED MOB TASKS WITH SBA. PT COMPLETED SIT TO STAND WITH MIN A. PT COMPLETED ADL MOB WITH CGA. PT EXHIBITED DECREASED STANDING BALANCE TODAY AND REQUIRED INCREASED PHYSICAL ASSIST. NURSING NOTIFIED. PT COMPLETED TOILETING TASKS WITH SBA/CGA. THANK YOU, TED IVEY
[2018-11-26 16:19] VITALS: BP 145/59
--- NOTE | 2018-11-26 16:58 | NUR ---
IVPB CEFEPIME HUNG AT THIS TIME. PT RESTING COMFORTABLY IN BED, DENIES ANY NEEDS AT THIS TIME. CALL LIGHT IN REACH, NAD NOTED, WILL CONITNUE TO MONITOR.
[2018-11-26 20:15] VITALS: BP 130/64
[2018-11-27 00:02] VITALS: BP 121/56
[2018-11-27 04:00] VITALS: BP 146/75
--- NOTE | 2018-11-27 04:52 | NUR ---
I have reviewed this patient and I concur with the Shift Assessment completed by the Licensed Practical Nurse today this shift.
[2018-11-27 06:16] LABS: BASOPHILS 0.6 % (0-2); EOSINOPHILS 6.5 % (0-7); HEMATOCRIT 35.2 % (42.0-54.0); HEMOGLOBIN 11.5 g/dL (13.5-17.5); IMMATURE GRANULOCYTES 0.4 % (0-5); LYMPHOCYTES 24.5 % (15-50); MCH 28.5 pg (26.0-34.0); MCHC 32.7 g/dL (31.0-37.0); MEAN PLATELET VOLUME 9.6 fL (7.4-10.4); MONOCYTES 13.8 % (2-11); NEUTROPHILS 54.2 % (40-80); RBC 4.03 10x6/uL (4.20-6.10); WBC 7.8 10x3/uL (4.8-10.8)
[2018-11-27 06:42] LABS: MCV 87.3 fL (80.0-100.0); PLATELET COUNT 177 10x3/uL (130-400)
[2018-11-27 06:47] LABS: CALC OSMOLALITY 273 mosm/kg (275-300); CALCIUM 9.2 mg/dL (8.5-10.1); CARBON DIOXIDE 21.6 mmol/L (21.0-32.0); CHLORIDE - SERUM 102 mmol/L (98-107); CREATININE - SERUM 0.8 mg/dL (0.6-1.3); GLUCOSE 89 mg/dL (74-106); POTASSIUM - SERUM 4.7 mmol/L (3.5-5.1); SODIUM 135 mmol/L (136-145); UREA NITROGEN 26 mg/dL (7-18); eGFR NON AFRICAN AMERICAN > 90 mL/min (90-120)
[2018-11-27 08:45] VITALS: BP 127/61
--- NOTE | 2018-11-27 10:58 | NUR ---
PT FOR BRONCH AT THIS TIME, VIA BED. NAD NOTED.
--- NOTE | 2018-11-27 12:20 | NUR ---
PT RETURNED TO ROOM 2126, PT A/O X4, O2 RUNNING IN THE HIGH 80S. PLACED PT ON 3L O2. PT TO REMAINE NPO FOR 2HRS. PT MADE AWARE. PLACED PT ON FREQUENT VITALS SIGNS. PT DENIES ANY NEEDS AT THIS TIME. CALL LIGHT IN REACH, NAD NOTED, WILL CONTINUE TO MONITOR.
[2018-11-27 16:37] VITALS: BP 139/67
--- NOTE | 2018-11-27 16:42 | NUR ---
OT NOTE: PT COMPLETED ADL MOB TASKS WITH SBA. PT COMPLETED TOILETING AND GROOMING TASKS WITH SBA. THANK YOU, TED IVEY
[2018-11-27 20:00] VITALS: BP 124/50
--- NOTE | 2018-11-27 20:10 | NUR ---
REC'D CHGE OF SHIFT WALKING ROUNDS IN BED SITTING POSITION WATCHING TV.STATES FEELING MUCH BETTER SINCE GOT ALOT OF THAT STUFF OUT OF MY LUNGS.DENIES ANY DIFFICULTY BREATHING.WILL CONTINUE TO MONITOR FOR ANY CHGES AND FOLLOW CURRENT PLAN OF CARE
[2018-11-28] VITALS: BP 138/63
[2018-11-28 05:35] LABS: BASOPHILS 0.2 % (0-2); HEMATOCRIT 34.5 % (42.0-54.0); HEMOGLOBIN 11.5 g/dL (13.5-17.5); IMMATURE GRANULOCYTES 0.3 % (0-5); LYMPHOCYTES 16.7 % (15-50); MCH 28.7 pg (26.0-34.0); MCHC 33.3 g/dL (31.0-37.0); MEAN PLATELET VOLUME 9.2 fL (7.4-10.4); MONOCYTES 9.6 % (2-11); NEUTROPHILS 68.2 % (40-80); RBC 4.01 10x6/uL (4.20-6.10); RDW 15.8 % (11.5-14.5)
[2018-11-28 05:45] LABS: ANION GAP 10.4 mmol/L (8-16); CALCIUM 9.1 mg/dL (8.5-10.1); POTASSIUM - SERUM 4.5 mmol/L (3.5-5.1)
[2018-11-28 05:46] LABS: PLATELET COUNT 270 10x3/uL (130-400); WBC 10.1 10x3/uL (4.8-10.8)
[2018-11-28 05:53] LABS: CARBON DIOXIDE 29.1 mmol/L (21.0-32.0); CREATININE - SERUM 1.1 mg/dL (0.6-1.3)
--- NOTE | 2018-11-28 07:33 | NUR ---
ROUNDING DONE WITH PATIENT JUST FINISHING BATH AND LINEN CHANGE. BED ALARM IS ON AND IN USE. LEFT FA PIV SEEN WITH 1/2 NS INFUSING AT 75 CC/HR. ON ROOM AIR. ON HEART MONITOR SHOWING SR, HR 65. WALKER IN ROOM .
[2018-11-28 08:34] VITALS: BP 130/61
[2018-11-28 12:30] VITALS: BP 122/62
--- NOTE | 2018-11-28 14:18 | NUR ---
Nutrition Follow-up: Pt reports good appetite/PO intake. Noted bronch done yesterday and awaiting biopsy results. Diet: Cardiac PO intake: 80% avg x 6 meals No new wt Last BM: 11/28 Labs reviewed Meds reviewed Continue current diet as tolerated. +Boost with meals per pt request. RD following.
--- NOTE | 2018-11-28 14:59 | NUR ---
BED ALARM IN USE, ASSSITED PATIENT TO RESTROOM. NO FAMILY AT PRESENT IN THE ROOM, THEY WERE EARILER.
--- NOTE | 2018-11-28 16:02 | NUR ---
OT NOTE: PT COMPLETED TOILETING TASKS WITH SBA/CGA. PT COMPLETED STANDING BALANCE WITH GROOMING ACTIVITES AT SINK LEVEL WITH SBA. PT COMPLETED BED MOB WITH SPV. PT COOPERATIVE WITH THERAPY. THANK YOU, TED IVEY
[2018-11-28 16:50] VITALS: BP 141/70
[2018-11-28 20:00] VITALS: BP 134/58
[2018-11-29] VITALS: BP 122/59
--- NOTE | 2018-11-29 01:30 | NUR ---
SUPINE IN BED, REQUESTS TO TAKE SHOWER. IV DICONNECTED AND SITE COVERED. PT AMBULATES INDEPENDENTLY. WILL CONTINUE TO MONITOR.
[2018-11-29 04:00] VITALS: BP 142/61
[2018-11-29 05:52] LABS: BASOPHILS 0.4 % (0-2); EOSINOPHILS 6.4 % (0-7); HEMATOCRIT 36.8 % (42.0-54.0); HEMOGLOBIN 11.7 g/dL (13.5-17.5); IMMATURE GRANULOCYTES 0.4 % (0-5); LYMPHOCYTES 24.9 % (15-50); MCH 28.5 pg (26.0-34.0); MCHC 31.8 g/dL (31.0-37.0); MEAN PLATELET VOLUME 9.5 fL (7.4-10.4); MONOCYTES 11.8 % (2-11); NEUTROPHILS 56.1 % (40-80); PLATELET COUNT 239 10x3/uL (130-400); RBC 4.11 10x6/uL (4.20-6.10); WBC 7.6 10x3/uL (4.8-10.8)
[2018-11-29 06:16] LABS: MCV 89.5 fL (80.0-100.0)
[2018-11-29 06:38] LABS: CALC OSMOLALITY 279 mosm/kg (275-300); CALCIUM 9.6 mg/dL (8.5-10.1); CHLORIDE - SERUM 101 mmol/L (98-107); CREATININE - SERUM 0.9 mg/dL (0.6-1.3); GLUCOSE 93 mg/dL (74-106); POTASSIUM - SERUM 4.5 mmol/L (3.5-5.1); SODIUM 137 mmol/L (136-145); UREA NITROGEN 28 mg/dL (7-18); eGFR NON AFRICAN AMERICAN 88 mL/min (90-120)
--- NOTE | 2018-11-29 06:49 | NUR ---
I have reviewed this patient and I concur with the Shift Assessment completed by the Licensed Practical Nurse today this shift.
--- NOTE | 2018-11-29 07:27 | NUR ---
ROUNDING DONE WITH PATIENT LAYING IN THE BED, NO NEEDS VOICED AT THIS TIME. BED ALARM IS TURNED ON. ON ROOM AIR. ON HEART MONITOR SHOWING SR, HR 65. LEFT FA PIV SEEN WITH 1/2 NS INFUSING AT 75 CC/HR.
[2018-11-29 08:03] VITALS: BP 154/72
[2018-11-29 11:10] LABS: FUNGUS STAIN Final report (())
[2018-11-29 11:55] VITALS: BP 127/56
--- NOTE | 2018-11-29 12:40 | NUR ---
ASSSITED TO RESTROOM FOR INCONT. EPISODE OF URINE. DEPENDS IS SOAKED ALONG WITH BEDDING. HAD BOWEL MOVEMENT IN TOLIET. COMPLETE LINEN CHANGE ODNE.
--- NOTE | 2018-11-29 14:45 | NUR ---
RESTING IN BED, WATCHING TV. BED ALARM IS ON.
--- NOTE | 2018-11-29 14:53 | NUR ---
OT NOTE: PLT COMPLETED ADL MOB TASKS WITH SBA/CGA. PT COMPLETED TOILETING WITH SBA. THANK YOU, TED IVEY
[2018-11-29 15:55] VITALS: BP 145/61
[2018-11-29 16:08] LABS: AFB SPECIMEN PROCESSING Concentration (())
--- NOTE | 2018-11-29 19:17 | NUR ---
BEDSIDE REPORT RECEIVED FROM DAY SHIFT, PT CARE ASSUMED. WROTE NAME ON BOARD, PT LYING IN BED WATCHING TV, AAOX4. DENIES ANY NEEDS AT THIS TIME. BED IN LOWEST POSITION, SR X2, BED ALARM ON, CALL LIGHT WITHIN REACH. WILL CONTINUE TO MONITOR.
[2018-11-29 20:00] VITALS: BP 138/67
[2018-11-30] VITALS: BP 143/65
[2018-11-30 04:00] VITALS: BP 127/62
--- NOTE | 2018-11-30 04:04 | NUR ---
PT LYING IN BED WITH EYES CLOSED, RR EVEN AND NONLABORED, NO S/S OF DISTRESS, AROUSES EASILY TO VOICE. DENIES ANY NEEDS AT THIS TIME. BED IN LOWEST POSITION, SR X3, CALL LIGHT WITHIN REACH. WILL CONTINUE TO MONITOR.
[2018-11-30 05:57] LABS: BASOPHILS 0.3 % (0-2); EOSINOPHILS 4.6 % (0-7); HEMATOCRIT 34.7 % (42.0-54.0); HEMOGLOBIN 11.2 g/dL (13.5-17.5); IMMATURE GRANULOCYTES 0.2 % (0-5); LYMPHOCYTES 23.3 % (15-50); MCH 28.6 pg (26.0-34.0); MCHC 32.3 g/dL (31.0-37.0); MCV 88.7 fL (80.0-100.0); MEAN PLATELET VOLUME 9.2 fL (7.4-10.4); NEUTROPHILS 60.6 % (40-80); PLATELET COUNT 270 10x3/uL (130-400); RBC 3.91 10x6/uL (4.20-6.10); RDW 16.1 % (11.5-14.5); WBC 8.9 10x3/uL (4.8-10.8)
[2018-11-30 06:11] LABS: CALC OSMOLALITY 280 mosm/kg (275-300); CARBON DIOXIDE 28.2 mmol/L (21.0-32.0); CHLORIDE - SERUM 104 mmol/L (98-107); CREATININE - SERUM 0.9 mg/dL (0.6-1.3); GLUCOSE 86 mg/dL (74-106); POTASSIUM - SERUM 4.8 mmol/L (3.5-5.1); SODIUM 139 mmol/L (136-145); UREA NITROGEN 23 mg/dL (7-18); eGFR NON AFRICAN AMERICAN 88 mL/min (90-120)
--- NOTE | 2018-11-30 06:16 | NUR ---
PT C/O PAIN AT PIV SITE TO LEFT FA, D/C'D WITH CATHETER TIP INTACT. RESITED 22G TO RIGHT FOREARM, X1 ATTEMPT, PT TOLERATED WELL. IV INFUSING 1/2 NS, NO S/S OF INFILTRATION. BED IN LOWEST POSITION, BED ALARM ON, SR X2, CALL LIGHT WITHIN REACH. WILL CONTINUE TO MONITOR.
[2018-11-30 08:13] VITALS: BP 138/64
--- NOTE | 2018-11-30 09:00 | NUR ---
RECEIVED REPORT. ASSUMED CARE OF ZULY. PATIENT RESTING WITH EYES CLOSED, EASILY AROUSED. RESP EVEN AND UNLABORED. IV FLUIDS INFUSING ORDERED. DENIES NEEDS AT THIS TIME. DR. PAGE HERE FOR AM ROUNDS.
--- NOTE | 2018-11-30 09:30 | NUR ---
0700 RECEIVED REPORT AND ASSUMED CARE OF PATIENT, NOT 0900.
--- NOTE | 2018-11-30 11:42 | NUR ---
1135 22 GAUGE IV REMOVED FROM RIGHT FOREARM. CATHETER TIP INTACT. NO BLEEDING FROM SITE. 2X2 GAUZE APPLIED AND SECURED WITH BANDAID. NO DISTRESS. 1140 DISCHARGE INSTRUCTIONS PROVIDED TO PATIENT. ANSWERED ALL QUESTIONS PERTAINING TO MEDICATIONS. PATIENT STATES HIS SISTER WILL BE HERE TO GET HIM AND COULD I GO OVER THEM WITH HER WELL. PATIENT LIVES ALONE AND HAS HOME HEALTH COME IN A COUPLE DAYS AWEEK BUT HE DOES HAVE A MEMORY PROBLEM. EXPLAINED TO PATIENT THAT THIS GARMENT FITTER WOULD BE GLAD TO GO OVER INSTRUCTIONS WITH HIS SISTER.
[2018-11-30 11:47] VITALS: Ht 167.6 cm; Wt 51.1 kg
--- NOTE | 2018-11-30 12:17 | NUR ---
PATIENT LEFT UNIT VIA WHEELCHAIR AT THIS TIME WITH ALL PERSONAL BELONGINGS. PATIENT DISCHARGED TO HOME WITH HIS FAMILY. PATIENT THANKED THIS BARN WORKER FOR ALL CARES RENDERED. PATIENT IN NO DISTRESS UPON LEAVING UNTI.
--- NOTE | 2018-11-30 13:58 | MORECARE ---
CASE MANAGEMENT DISCHARGE SUMMARY PATIENT: SHALONDA GOODWIN UNIT: [id number] ADM DATE: 11/13/18 AGE: 73 : 44 SEX: M ROOM/BED: D.2137 AUTHOR: HUGH,DOC PHYSICIAN: REFERRING PHYSICIAN: CARRIE PAGE MD DATE OF SERVICE: 11/30/18 Discharge Plan Patient Name: SHALONDA GOODWIN Facility: [facility]:[place] : 1945 Planned Disposition: Home with Home Health Anticipated Discharge Date: 11/19/18 Discharge Date: 11/30/2018 Expected LOS: 6 Initial Reviewer: [id number] Initial Review Date: 11/14/2018 Generated: 11/30/18 2:58 pm DCP- Discharge Planning Updated by [email or web address]: Rayo Floyd on 11/21/18 4:[address] Patient Name: SHALONDA GOODWIN Encounter No: [id number] : 1945 Primary Insurance: C MEDICARE SOLUTIONS Anticipated DC Date: 11-19-2018 Planned Disposition: Home with Home Health External Planned Provider: [facility] DCP follow-up note: CM MET WITH PT AND NIECE IN ROOM, PROVIDED INSURANCE DENIAL OF REHAB AT [facility]. BOTH PT AND NIECE STILL IN AGREEEMENT WITH DISCHARGE HOME WITH [facility]. COPY OF INSURANCE PENITENTIARY REHAB DENIAL PLACED IN CHART. PT AND NIECE, KATJA, WILL ACCEPT HOME HEALTH FOR NURSING AND THERAPY. CM TO ARRANGE [facility] SERVICES WITH PHYSICIAN AGREEMENT AND ORDERS. Rayo Floyd CASE KASANDRA DCP- Discharge Planning Updated by [email or web address]: Rayo Floyd on 11/18/18 4:[address] Patient Name: SHALONDA GOODWIN Encounter No: [id number] : 1945 Primary Insurance: [facility] MEDICARE SOLUTIONS Anticipated DC Date: 11-19-2018 Planned Disposition: Home with Home Health External Planned Provider: [facility] DCP follow-up note: CM MET WITH PT IN ROOM REGARDING DISCHARGE PLANNING AND NEEDS, CM NOTIFED OF INSURANCE DECLINING REHAB AT [facility]. CM DISCUSSED AVAILABILITY OF HOME HEALTH, PROVIDERS AND SERVICES. PT STATES HE WILL ACCEPT HOME HEALTH AND HAS NO PROVIDER PREFERENCE, ASKED CM TO CALL HIS NIECE. CM CALLED AND NOTIFIED DR. PAGE WHO AGREES WITH INSURANCE DETERMINATION; WILL REVIEW PT'S CREATINE TOMORROW AND DISCUSS WITH PT AND FAMILY. CM RECEIVED CALL FROM KIYA RENNERKIZZY, NOTIFIED HER OF INSURANCE DECLINATION OF SKILLED REHAB WITH RECOMMENDATION OF HOME HEALTH. SHE WOULD LIKE ARRANGEMENT WITH [facility] AT HOME. CHOICE COMPLETED. PT AND NIECE, KATJA, WILL ACCEPT HOME HEALTH FOR NURSING AND THERAPY. CM TO ARRANGE [facility] AT HOME SERVICES WITH PHYSICIAN AGREEMENT AND ORDERS. Rayo Floyd CASE MANAGEMENT DCP- Discharge Planning Updated by [id number]: Rayo Floyd on 11/18/18 9:[address] Patient Name: SHALONDA GOODWIN Encounter No: [id number] : 1945 Primary Insurance: [facility] MEDICARE SOLUTIONS Anticipated DC Date: 11-18-2018 Planned Disposition: Intermediate Facility External Planned Provider: [facility] DCP follow-up note: CM CALLED AND SPOKE TO KATJA SANTA, DISCUSSED COPAY THAT PT WILL BE RESPONSIBLE FOR ($1,800) FOR INPATIENT REHAB. KATJA STATES THAT IS NOT AN OPTION AND WANTS PT REFERRED TO [facility]. CM MET WITH PT IN ROOM, INFORMED OF ABOVE. PT IN AGREEMENT WITH PLAN, IMPORTANT MESSAGE FROM MEDICARE PROVIDED AND EXPLAINED. CM CALLED [facility], , SPOKE TO CM WHO WILL SCREEN PT FOR ADMISSION, CM ASKED FOR DETERMINATION SOON POSSIBLE PT IS READY FOR DISCHARGE. CM FAXED REFERRAL TO [facility] AT [phone]. CM WAITING ADMISSION DETERMINATION FROM [facility] INSURANCE AUTHORIZATION OR DENIAL FOR REHAB SERVICES. ENRIQUE Ybarra DCP- Discharge Planning Updated by [email or web address]: Rayo Floyd on 11/15/18 10:[address] Patient Name: SHALONDA GOODWIN Encounter No: [id number] : 1945 Primary Insurance: [facility] MEDICARE SOLUTIONS Anticipated DC Date: Planned Disposition: Inpatient Rehab External Planned Provider: [facility] INPATIENT REHAB DCP follow-up note: CM RECEIVED CALL FROM KATERINE [facility], , WHO RECEIVED REFERRAL AND WILL SUBMIT REQUEST FOR INSURANCE AUTHORIZATION FOR REHAB SERVICES. CM WAITING INSURANCE AUTHORIZATION FOR INPATIENT REHAB SERVICES AT [facility]. Rayo Floyd, CASE MANAGEMENT DCP- Discharge Planning Updated by [email or web address]: Rayo Floyd on 11/14/18 4:[address] Patient Name: SHALONDA GOODWIN Admission Status: ER Accout number: [id number] Admission Date: 11-13-2018 : 1945 Admission Diagnosis: Attending: CARRIE PAGE Current LOS: 1 Anticipated DC Date: Planned Disposition: Inpatient Rehab Primary Insurance: [facility] MEDICARE SOLUTIONS PLANNED EXTERNAL PROVIDER: [facility] INPATIENT REHAB Discharge Planning Comments: CM MET WITH PT NIECE AND SISTER IN ROOM TO DISCUSS DISCHARGE PLANNING AND NEEDS. SHALONDA GOODWIN provided verbal consent to discuss current and ongoing needs with/in the presence of: KIYAECE/ POChantale MATA, SISTER, ILIANA. PT REPORTS LIVING AT HOME INDEPENDENTLY AND ALONE. PT HAS CANE HE DOES NOT USE AND A ROLLING WALKER WITH SEAT; PT HAS NO MEDICAL EQUIPMENT PROVIDER PREFERENCE. PT HAS NO OUTSIDE SERVICES ASSISTING IN THE HOME. PT'S NIECE IS WORKING ON GETTING PERSONAL CARE THROUGH MEDICAID. CM DISCUSSED AVAILABILITY OF HOME HEALTH, REHAB SERVICES AND MEDICAL EQUIPMENT. PT AND FAMILY WANT REHAB AT [facility] AND IF DECLINED, WANTS REHAB AT [facility]. FAMILY WILL PICK PT UP FOR DISCHARGE HOME. CHOICE FOR [facility] SIGNED. CM TO FAX REFERRAL TO [facility] INPATIENT REHAB SOON POSSIBLE PT HAS MANAGED MEDICARE AND WILL REQUIRE PRIOR AUTHORIZATION FOR SERVICES. Import Coordinator: Rayo Floyd DCPIA - Discharge Planning Initial Assessment Updated by [id number]: Rayo Floyd on 11/14/18 5:32 pm * Is the patient Alert and Oriented? Yes * How many steps to enter\exit or inside your home? ELEVATOR * PCP DR. PAGE * Pharmacy [facility]. * Preadmission Environment Home Alone * ADLs Partial Dependent * Partial ADLs (Assistance needed) Bathing Medication Management * Equipment Cane Rolling Walker * Other Equipment NO MEDICAL EQUIPMENT PROVIDER PREFERENCE * List name and contact numbers for known caregivers / representatives who currently or will assist patient after discharge: ESPERANZA SANTA, PRAVEEN / JEANNINE, * Verbal permission to speak to the caregivers and representatives has been obtained from the patient. Yes * Community resources currently utilized None * Please name any agencies selected above. NONE * Additional services required to return to the preadmission environment? Yes * Can the patient safely return to the preadmission environment? Yes * Has this patient been hospitalized within the prior 30 days at any hospital? No Coverage Notice Reviewer: ALCIRA Floyd Notice Issued Date-Time: 11/14/2018 13:40 Notice Type: Patient Choice Letter Notice Delivered To: Family Member Relationship to Patient: Power of Traffic Or System Dispatcher Adobe Block Maker Name: ESPERANZA SANTA Delivery Method: HAND - Hand Delivered Nasreen Days: Prior Verbal Notification: Recipient Understood Notice: Yes Recipient Signature: Yes Med Rec Note Co-signed by Attending: Coverage Notice Comment: [facility] NAILS TO [facility] REHAB Reviewer: [id number] Floyd Notice Issued Date-Time: 11/18/2018 9:40 Notice Type: IM Discharge Notice Notice Delivered To: Patient Relationship to Patient: Adobe Block Maker Name: Delivery Method: HAND - Hand Delivered Nasreen Days: Prior Verbal Notification: Recipient Understood Notice: Yes Recipient Signature: Yes Med Rec Note Co-signed by Attending: Coverage Notice Comment: Reviewer: ALCIRA Floyd Notice Issued Date-Time: 11/18/2018 16:10 Notice Type: Patient Choice Letter Notice Delivered To: Family Member Relationship to Patient: Niece Adobe Block Maker Name: KATJA SANTA Delivery Method: HAND - Hand Delivered Nasreen Days: Prior Verbal Notification: Recipient Understood Notice: Yes Recipient Signature: Yes Med Rec Note Co-signed by Attending: Coverage Notice Comment: [facility] PROVIDER PREFERENCE Last DP export: 11/21/18 4:09 p Patient Name: SHALONDA GOODWIN Page [id number] at 1358 All edits/amendments must be made on the electronic document DICTATION DATE: 11/30/18 1357 CRIMINAL JUSTICE SOCIAL WORKER: MACIEL 11/30/18 1357 RPT#: [id number] DC DATE:11/30/18 STATUS: DIS IN [facility] [address] [place] [address] END OF REPORT
--- NOTE | 2018-11-30 14:12 | MORECARE ---
CASE MANAGEMENT DISCHARGE SUMMARY PATIENT: SHALONDA GOODWIN UNIT: [id number] ADM DATE: 11/13/18 AGE: 73 : 44 SEX: M ROOM/BED: D.9530 AUTHOR: HUGH,DOC PHYSICIAN: REFERRING PHYSICIAN: CARRIE PAGE MD DATE OF SERVICE: 11/30/18 Discharge Plan Patient Name: SHALONDA GOODWIN Facility: [facility]:[place] : 1945 Planned Disposition: Home with Home Health Anticipated Discharge Date: 11/19/18 Discharge Date: 11/30/2018 Expected LOS: 6 Initial Reviewer: [id number] Initial Review Date: 11/14/2018 Generated: 11/30/18 3:12 pm Comments DCP- Discharge Planning Updated by [id number]: Jillian Lora on 11/30/18 1:[address] LATE ENTRY 1000 CM SPOKE WITH THE PATIENT AT THE BEDSIDE. INFORMED HIM HE WAS DISCHARGED FOR TODAY. ADVISED HAD ORDERED HOME W/ HOME HEALTH. HE HAS CHOSEN [facility] HOME HEALTH. TELEPHONE CALL TO [facility]. LEFT MESSAGE. 0500 FOLLOW UP PHONE CALL.. CM SPOKEN W/ [facility]. DISCUSSED REFERRAL. CM FAXED MD ORDERS AND DISCHARGE SUMMARY, H/P, CONSULTS AND DISCHARGE MED LIST TO [phone]. REC CB WITH MESSAGE LEFT BY [place].. CM RETURNED THE PHONE CALL. MESSAGE LEFT. [address] [facility]. SPOKE WITH SAY. THE PATIENT WILL BE SEEN ON SUNDAY. DCP- Discharge Planning Updated by [email or web address]: Rayo Floyd on 11/21/18 4:[address] Patient Name: SHALONDA GOODWIN Encounter No: [id number] : 1945 Primary Insurance: [facility] MEDICARE SOLUTIONS Anticipated DC Date: 11-19-2018 Planned Disposition: Home with Home Health External Planned Provider: [facility] [place] DCP follow-up note: CM MET WITH PT AND OLIVIER IN ROOM, PROVIDED INSURANCE DENIAL OF REHAB AT [facility]. BOTH PT AND NIECE STILL IN AGREEEMENT WITH DISCHARGE HOME WITH [facility] AT HOME. COPY OF INSURANCE HALFWAY REHAB DENIAL PLACED IN CHART. PT AND KATJA MORTON, WILL ACCEPT HOME HEALTH FOR NURSING AND THERAPY. CM TO ARRANGE [facility] SERVICES WITH PHYSICIAN AGREEMENT AND ORDERS. ENRIQUE Ybarra DCP- Discharge Planning Updated by [id number]: Rayo Floyd on 11/18/18 4:[address] Patient Name: SHALONDA GOODWIN Encounter No: [id number] : 1945 Primary Insurance: [facility] MEDICARE SOLUTIONS Anticipated DC Date: 11-19-2018 Planned Disposition: Home with Home Health External Planned Provider: [facility] AT HOME DCP follow-up note: CM MET WITH PT IN ROOM REGARDING DISCHARGE PLANNING AND NEEDS, CM NOTIFED OF INSURANCE DECLINING REHAB AT [facility]. CM DISCUSSED AVAILABILITY OF HOME HEALTH, PROVIDERS AND SERVICES. PT STATES HE WILL ACCEPT HOME HEALTH AND HAS NO PROVIDER PREFERENCE, ASKED CM TO CALL HIS NIECE. CM CALLED AND NOTIFIED DR. PAGE WHO AGREES WITH INSURANCE DETERMINATION; DR WILL REVIEW PT'S CREATINE TOMORROW AND DISCUSS WITH PT AND FAMILY. CM RECEIVED CALL FROM OLIVIER RENNER, NOTIFIED HER OF INSURANCE DECLINATION OF SKILLED REHAB WITH RECOMMENDATION OF HOME HEALTH. SHE WOULD LIKE ARRANGEMENT WITH [facility] AT HOME. CHOICE COMPLETED. PT AND NIECEKATJA, WILL ACCEPT HOME HEALTH FOR NURSING AND THERAPY. CM TO ARRANGE [facility] WITH PHYSICIAN AGREEMENT AND ORDERS. ENRIQUE Ybarra DCP- Discharge Planning Updated by [id number]: Rayo Floyd on 11/18/18 9:[address] Patient Name: SHALONDA GOODWIN Encounter No: [id number] : 1945 Primary Insurance: [facility] MEDICARE SOLUTIONS Anticipated DC Date: 11-18-2018 Planned Disposition: [facility] Facility External Planned Provider: [facility] MEDICARE REHAB BED DCP follow-up note: CM CALLED AND SPOKE TO KATJA SANTA, DISCUSSED COPAY THAT PT WILL BE RESPONSIBLE FOR ($1,800) FOR INPATIENT REHAB. KATJA STATES THAT IS NOT AN OPTION AND WANTS PT REFERRED TO [facility]. CM MET WITH PT IN ROOM, INFORMED OF ABOVE. PT IN AGREEMENT WITH PLAN, IMPORTANT MESSAGE FROM MEDICARE PROVIDED AND EXPLAINED. CM CALLED [facility], , SPOKE TO CM WHO WILL SCREEN PT FOR ADMISSION, CM ASKED FOR DETERMINATION SOON POSSIBLE PT IS READY FOR DISCHARGE. CM FAXED REFERRAL TO [facility] AT [phone]. CM WAITING ADMISSION DETERMINATION FROM [facility] INSURANCE AUTHORIZATION OR DENIAL FOR REHAB SERVICES. ENRIQUE Ybarra DCP- Discharge Planning Updated by [email or web address]: Rayo Floyd on 11/15/18 10:[address] Patient Name: SHALONDA GOODWIN Encounter No: [id number] : 1945 Primary Insurance: [facility] MEDICARE SOLUTIONS Anticipated DC Date: Planned Disposition: Inpatient Rehab External Planned Provider: [facility] INPATIENT REHAB DCP follow-up note: CM RECEIVED CALL FROM KATERINE [facility], , WHO RECEIVED REFERRAL AND WILL SUBMIT REQUEST FOR INSURANCE AUTHORIZATION FOR REHAB SERVICES. CM WAITING INSURANCE AUTHORIZATION FOR INPATIENT REHAB SERVICES AT [facility]. ENRIQUE Ybarra DCP- Discharge Planning Updated by [id number]: Rayo Floyd on 11/14/18 4:[address] Patient Name: SHALONDA GOODWIN Admission Status: ER Accout number: [id number] Admission Date: 11-13-2018 : 1945 Admission Diagnosis: Attending: CARRIE PAGE Current LOS: 1 Anticipated DC Date: Planned Disposition: Inpatient Rehab Primary Insurance: [facility] MEDICARE SOLUTIONS PLANNED EXTERNAL PROVIDER: [facility] INPATIENT REHAB Discharge Planning Comments: CM MET WITH PT NIECE AND SISTER IN ROOM TO DISCUSS DISCHARGE PLANNING AND NEEDS. SHALONDA GOODWIN provided verbal consent to discuss current and ongoing needs with/in the presence of: NIECE/ POChantale MATA, SISTER, ILIANA. PT REPORTS LIVING AT HOME INDEPENDENTLY AND ALONE. PT HAS CANE HE DOES NOT USE AND A ROLLING WALKER WITH SEAT; PT HAS NO MEDICAL EQUIPMENT PROVIDER PREFERENCE. PT HAS NO OUTSIDE SERVICES ASSISTING IN THE HOME. PT'S NIECE IS WORKING ON GETTING PERSONAL CARE THROUGH MEDICAID. CM DISCUSSED AVAILABILITY OF HOME HEALTH, REHAB SERVICES AND MEDICAL EQUIPMENT. PT AND FAMILY WANT REHAB AT [facility] AND IF DECLINED, WANTS REHAB AT [facility]. FAMILY WILL PICK PT UP FOR DISCHARGE HOME. CHOICE FOR [facility] SIGNED. CM TO FAX REFERRAL TO [facility] INPATIENT REHAB SOON POSSIBLE PT HAS MANAGED MEDICARE AND WILL REQUIRE PRIOR AUTHORIZATION FOR SERVICES. Kitchen Clerk: Rayo Floyd DCPIA - Discharge Planning Initial Assessment Updated by [id number]: Rayo Floyd on 11/14/18 5:32 pm * Is the patient Alert and Oriented? Yes * How many steps to enter\exit or inside your home? ELEVATOR * PCP DR. PAGE * [facility] * Preadmission Environment Home Alone * ADLs Partial Dependent * Partial ADLs (Assistance needed) Bathing Medication Management * Equipment Cane Rolling Walker * Other Equipment NO MEDICAL EQUIPMENT PROVIDER PREFERENCE * List name and contact numbers for known caregivers / representatives who currently or will assist patient after discharge: OLIVIER ANTON / ELISEOChantale, * Verbal permission to speak to the caregivers and representatives has been obtained from the patient. Yes * Community resources currently utilized None * Please name any agencies selected above. NONE * Additional services required to return to the preadmission environment? Yes * Can the patient safely return to the preadmission environment? Yes * Has this patient been hospitalized within the prior 30 days at any hospital? No Coverage Notice Reviewer: [id number] Floyd Notice Issued Date-Time: 11/14/2018 13:40 Notice Type: Patient Choice Letter Notice Delivered To: Family Member Relationship to Patient: Power of Nurse Assistant Metal Roofer Name: ESPERANZA SANTA Delivery Method: HAND - Hand Delivered Nasreen Days: Prior Verbal Notification: Recipient Understood Notice: Yes Recipient Signature: Yes Med Rec Note Co-signed by Attending: Coverage Notice Comment: WILLIAMS NAILS CHOICE TO [facility] INPATIENT REHAB Reviewer: ALCIRA Floyd Notice Issued Date-Time: 11/18/2018 16:10 Notice Type: Patient Choice Letter Notice Delivered To: Family Member Relationship to Patient: Olivier Metal Roofer Name: KATJADOMENICO SANTA Delivery Method: HAND - Hand Delivered Nasreen Days: Prior Verbal Notification: Recipient Understood Notice: Yes Recipient Signature: Yes Med Rec Note Co-signed by Attending: Coverage Notice Comment: [facility] PROVIDER PREFERENCE Reviewer: [id number] Floyd Notice Issued Date-Time: 11/18/2018 9:40 Notice Type: IM Discharge Notice Notice Delivered To: Patient Relationship to Patient: Metal Roofer Name: Delivery Method: HAND - Hand Delivered Nasreen Days: Prior Verbal Notification: Recipient Understood Notice: Yes Recipient Signature: Yes Med Rec Note Co-signed by Attending: Coverage Notice Comment: Last DP export: 11/30/18 12:58 p Patient Name: SHALONDA GOODWIN Page [id number] at 1412 All edits/amendments must be made on the electronic document DICTATION DATE: 11/30/181411 ORAL SURGERY ASSISTANT: MACIEL 11/30/181411 RPT#: [id number] DC DATE:11/30/18 STATUS: DIS IN [facility] [address] [place] [address] END OF REPORT
[2018-11-30 16:08] LABS: AFB SPECIMEN PROCESSING Concentration (())
--- NOTE | 2018-12-02 09:41 | MORECARE ---
CASE MANAGEMENT DISCHARGE SUMMARY PATIENT: SHALONDA GOODWIN UNIT: [id number] ADM DATE: 11/13/18 AGE: 73 : 43 SEX: M ROOM/BED: D.3088 AUTHOR: HUGH,DOC PHYSICIAN: REFERRING PHYSICIAN: CARRIE PAGE MD DATE OF SERVICE: 12/02/18 Discharge Plan Patient Name: SHALONDA GOODWIN Facility: [facility]:[place] : 1945 Planned Disposition: Home with Home Health Anticipated Discharge Date: 11/30/18 Discharge Date: 11/30/2018 Expected LOS: 17 Initial Reviewer: [email or web address] Initial Review Date: 11/14/2018 Generated: 12/02/18 10:41 am Comments DCP- Discharge Planning Updated by [id number]: Jillian Lora on 11/30/18 1:[address] LATE ENTRY 1000 CM SPOKE WITH THE PATIENT AT THE BEDSIDE. INFORMED HIM HE WAS DISCHARGED FOR TODAY. ADVISED HAD ORDERED HOME W/ HOME HEALTH. HE HAS CHOSEN [facility]. TELEPHONE CALL TO [facility]. LEFT MESSAGE. [phone] FOLLOW UP PHONE CALL.. CM SPOKEN W/ SREE. DISCUSSED REFERRAL. CM FAXED MD ORDERS AND DISCHARGE SUMMARY, H/P, CONSULTS AND DISCHARGE MED LIST TO [phone]. REC CB WITH MESSAGE LEFT BY FELTON.. CM RETURNED THE PHONE CALL. MESSAGE LEFT. 5181 TC TO [facility]. SPOKE WITH SAY. THE PATIENT WILL BE SEEN ON SUNDAY. DCP- Discharge Planning Updated by [id number]: Rayo Floyd on 11/21/18 4:[address] Patient Name: SHALONDA GOODWIN Encounter No: [id number] : 1945 Primary Insurance: [facility] MEDICARE SOLUTIONS Anticipated DC Date: 11-19-2018 Planned Disposition: Home with Home Health External Planned Provider: [facility] DCP follow-up note: CM MET WITH PT AND OLIVIER IN ROOM, PROVIDED INSURANCE DENIAL OF REHAB AT [facility]. BOTH PT AND NIECE STILL IN AGREEEMENT WITH DISCHARGE HOME WITH [facility] AT HOME. COPY OF INSURANCE [facility] RE[facility]AB DENIAL PLACED IN CHART. PT AND KATJA MORTON, WILL ACCEPT HOME HEALTH FOR NURSING AND THERAPY. CM TO [facility]RANGE [facility] WITH PHYSICIAN AGREEMENT AND ORDERS. ENRIQUE Ybarra DCP- Discharge Planning Updated by [id number]: Rayo Floyd on 11/18/18 4:[address] Patient Name: SHALONDA GOODWIN Encounter No: [id number] : 1945 Primary Insurance: [facility] MEDICARE SOLUTIONS Anticipated DC Date: 11-19-2018 Planned Disposition: Home with Home Health External Planned Provider: [facility] DCP follow-up note: CM MET WITH PT IN ROOM REGARDING DISCHARGE PLANNING AND NEEDS, CM NOTIFED OF INSURANCE DECLINING REHAB AT [facility]. CM DISCUSSED AVAILABILITY OF HOME HEALTH, PROVIDERS AND SERVICES. PT STATES HE WILL ACCEPT HOME HEALTH AND HAS NO PROVIDER PREFERENCE, ASKED CM TO CALL HIS NIECE. CM CALLED AND NOTIFIED DR. PAGE WHO AGREES WITH INSURANCE DETERMINATION; DR WILL REVIEW PT'S CREATINE TOMORROW AND DISCUSS WITH PT AND FAMILY. CM RECEIVED CALL FROM OLIVIER RENNER, NOTIFIED HER OF INSURANCE DECLINATION OF SKILLED REHAB WITH RECOMMENDATION OF HOME HEALTH. SHE WOULD LIKE ARRANGEMENT WITH [facility] AT HOME. CHOICE COMPLETED. PT AND NIECEKATJA, WILL ACCEPT HOME HEALTH FOR NURSING AND THERAPY. CM TO [facility]ANGE [facility] WITH PHYSICIAN AGREEMENT AND ORDERS. ENRIQUE Ybarra DCP- Discharge Planning Updated by [id number]: Rayo Floyd on 11/18/18 9:[address] Patient Name: SHALONDA GOODWIN Encounter No: [id number] : 1945 Primary Insurance: [facility] MEDICARE SOLUTIONS Anticipated DC Date: 11-18-2018 Planned Disposition: [facility] Facility External Planned Provider: [facility], MEDICARE REHAB BED DCP follow-up note: CM CALLED AND SPOKE TO KATJA SANTA, DISCUSSED COPAY THAT PT WILL BE RESPONSIBLE FOR ($1,[phone]) FOR INPATIENT REHAB. KATJA STATES THAT IS NOT AN OPTION AND WANTS PT REFERRED TO [facility]. CM MET WITH PT IN ROOM, INFORMED OF ABOVE. PT IN AGREEMENT WITH PLAN, IMPORTANT MESSAGE FROM MEDICARE PROVIDED AND EXPLAINED. CM CALLED [facility], , SPOKE TO CM WHO WILL SCREEN PT FOR ADMISSION, CM ASKED FOR DETERMINATION SOON POSSIBLE PT IS READY FOR DISCHARGE. CM FAXED REFERRAL TO [facility] AT [phone]. CM WAITING ADMISSION DETERMINATION FROM [facility] WELL INSURANCE AUTHORIZATION OR DENIAL FOR REHAB SERVICES. ENRIQUE Ybarra DCP- Discharge Planning Updated by [id number]: Rayo Floyd on 11/15/18 10:[address] Patient Name: SHALONDA GOODWIN Encounter No: [id number] : 1945 Primary Insurance: [facility] MEDICARE SOLUTIONS Anticipated DC Date: Planned Disposition: Inpatient Rehab External Planned Provider: [facility] INPATIENT RE[facility] DCP follow-up note: CM RECEIVED CALL FROM [facility], , WHO RECEIVED REFERRAL AND WILL SUBMIT REQUEST FOR INSURANCE AUTHORIZATION FOR REHAB SERVICES. CM WAITING INSURANCE AUTHORIZATION FOR INPATIENT REHAB SERVICES AT [facility]. ENRIQUE Ybarra DCP- Discharge Planning Updated by [id number]: Rayo Floyd on 11/14/18 4:[address] Patient Name: SHALONDA GOODWIN Admission Status: ER Accout number: [id number] Admission Date: 11-13-2018 : 1945 Admission Diagnosis: Attending: CARRIE PAGE Current LOS: 1 Anticipated DC Date: Planned Disposition: Inpatient Rehab Primary Insurance: [facility] MEDICARE SOLUTIONS PLANNED EXTERNAL PROVIDER: [facility] INPATIENT REHAB Discharge Planning Comments: CM MET WITH PT NIECE AND SISTER IN ROOM TO DISCUSS DISCHARGE PLANNING AND NEEDS. SHALONDA GOODWIN provided verbal consent to discuss current and ongoing needs with/in the presence of: NIECE/ POChantale MATA, SISTER, ILIANA. PT REPORTS LIVING AT HOME INDEPENDENTLY AND ALONE. PT HAS CANE HE DOES NOT USE AND A ROLLING WALKER WITH SEAT; PT HAS NO MEDICAL EQUIPMENT PROVIDER PREFERENCE. PT HAS NO OUTSIDE SERVICES ASSISTING IN THE HOME. PT'S NIECE IS WORKING ON GETTING PERSONAL CARE THROUGH MEDICAID. CM DISCUSSED AVAILABILITY OF HOME HEALTH, REHAB SERVICES AND MEDICAL EQUIPMENT. PT AND FAMILY WANT REHAB AT [facility] AND IF DECLINED, WANTS REHAB AT [facility]. FAMILY WILL PICK PT UP FOR DISCHARGE HOME. CHOICE FOR [facility] SIGNED. CM TO FAX REFERRAL TO [facility] INPATIENT REHAB SOON POSSIBLE PT HAS MANAGED MEDICARE AND WILL REQUIRE PRIOR AUTHORIZATION FOR SERVICES. Pre Owned Sales Consultant: Rayo Floyd DCPIA - Discharge Planning Initial Assessment Updated by [id number]: Rayo Floyd on 11/14/18 5:32 pm * Is the patient Alert and Oriented? Yes * How many steps to enter\exit or inside your home? ELEVATOR * PCP DR. PAGE * [facility] * Preadmission Environment Home Alone * ADLs Partial Dependent * Partial ADLs (Assistance needed) Bathing Medication Management * Equipment Cane Rolling Walker * Other Equipment NO MEDICAL EQUIPMENT PROVIDER PREFERENCE * List name and contact numbers for known caregivers / representatives who currently or will assist patient after discharge: ESPERANZA KIETOLIVIER / JEANNINE, * Verbal permission to speak to the caregivers and representatives has been obtained from the patient. Yes * Community resources currently utilized None * Please name any agencies selected above. NONE * Additional services required to return to the preadmission environment? Yes * Can the patient safely return to the preadmission environment? Yes * Has this patient been hospitalized within the prior 30 days at any hospital? No Coverage Notice Reviewer: [id number] Floyd Notice Issued Date-Time: 11/14/2018 13:40 Notice Type: Patient Choice Letter Notice Delivered To: Family Member Relationship to Patient: Power of Search Specialist Policy Analyst Name: ESPERANZA SANTA Delivery Method: HAND - Hand Delivered Nasreen Days: Prior Verbal Notification: Recipient Understood Notice: Yes Recipient Signature: Yes Med Rec Note Co-signed by Attending: Coverage Notice Comment: [facility] CHOICE TO [facility] Reviewer: [id number] Floyd Notice Issued Date-Time: 11/18/2018 9:40 Notice Type: IM Discharge Notice Notice Delivered To: Patient Relationship to Patient: Policy Analyst Name: Delivery Method: HAND - Hand Delivered Nasreen Days: Prior Verbal Notification: Recipient Understood Notice: Yes Recipient Signature: Yes Med Rec Note Co-signed by Attending: Coverage Notice Comment: Reviewer: [id number] Floyd Notice Issued Date-Time: 11/18/2018 16:10 Notice Type: Patient Choice Letter Notice Delivered To: Family Member Relationship to Patient: Olivier Policy Analyst Name: KATJA SANTA Delivery Method: HAND - Hand Delivered Nasreen Days: Prior Verbal Notification: Recipient Understood Notice: Yes Recipient Signature: Yes Med Rec Note Co-signed by Attending: Coverage Notice Comment: [facility] NO [facility] PROVIDER PREFERENCE Last DP export: 11/30/18 1:12 p Patient Name: SHALONDA GOODWIN Page [phone] at 0941 All edits/amendments must be made on the electronic document DICTATION DATE: 12/02/18940 MEDART OPERATOR: MACIEL 12/02/18940 RPT#: [id number] DC DATE:11/30/18 STATUS: DIS IN [facility] [address] [place] [address] END OF REPORT
[2018-12-26 17:08] LABS: FUNGUS MYCOLOGY CULTURE Final report (())
[2019-01-22 11:10] LABS: ACID FAST CULTURE Negative (()); ACID FAST SMEAR Negative (())
== END 2018-11-30 12:30 | disposition home health service (06) | DRG 166 ==
LOC: D.ER 15:49 → D.M2 20:22
PROVIDERS: Emergency Medicine; Internal Medicine; ADMIT Family Medicine; ATTEND Family Medicine
PROC: 0B9D8ZX Drainage of Right Middle Lung Lobe, Via Natural or Artificial Opening Endoscopic, Diagnostic (ICD-10-PCS; 2018-11-27)
PROC: 0BBD8ZX Excision of Right Middle Lung Lobe, Via Natural or Artificial Opening Endoscopic, Diagnostic (ICD-10-PCS; principal; 2018-11-27 11:43)
DX: J44.0 Chronic obstructive pulmonary disease with (acute) lower respiratory infection (principal); J18.9 Pneumonia, unspecified organism; N17.9 Acute kidney failure, unspecified; J44.1 Chronic obstructive pulmonary disease with (acute) exacerbation; D64.9 Anemia, unspecified; E86.0 Dehydration; R53.1 Weakness; R42 Dizziness and giddiness; R91.8 Other nonspecific abnormal finding of lung field; N40.0 Benign prostatic hyperplasia without lower urinary tract symptoms; I10 Essential (primary) hypertension

== ENCOUNTER 2018-12-16 12:39 | Inpatient (IN) | payer MEDICARE, MEDICAID ==
[2018-12-16] VITALS (10 sets, daily range): BP systolic 106–183; BP diastolic 38–92; BMI 19.9
[~2018-12-16] VITALS: Ht 167.6 cm; Wt 58.0 kg
[~2018-12-16 12:39] MED LIST: DONEPEZIL HCL10 MG PO; FLOMAX0.4 MG PO; LISINOPRIL-HCT1 EAC7 PO; PROSCAR5 MG PO
--- NOTE | 2018-12-16 12:42 | NUR ---
DISCONTINUED OXYGEN TO SEE IF PATIENT DESATURATED AND HE DROPPED VERY STEADILY, REACHED 87% AND OXYGEN WAS REPLACED, SATS AGAIN CONNOR TO 92%.
[2018-12-16 13:01] LABS: HEMATOCRIT 38.2 % (42.0-54.0); HEMOGLOBIN 12.3 g/dL (13.5-17.5); LYMPHOCYTES 20.1 % (15-50); MCH 28.9 pg (26.0-34.0); MCHC 32.2 g/dL (31.0-37.0); MCV 89.9 fL (80.0-100.0); MEAN PLATELET VOLUME 8.9 fL (7.4-10.4); NEUTROPHILS 72.8 % (40-80); PLATELET COUNT 227 10x3/uL (130-400); RBC 4.25 10x6/uL (4.20-6.10); RDW 16.1 % (11.5-14.5); WBC 7.9 10x3/uL (4.8-10.8)
[2018-12-16 13:11] LABS: INR 1.04 (0.85-1.17); PROTIME 13.1 SECONDS (11.6-15.0)
[2018-12-16 13:12] LABS: APTT 33.5 SECONDS (22.8-39.4)
[2018-12-16 13:14] LABS: ALBUMIN 3.5 g/dL (3.4-5.0); ALKALINE PHOSPHATASE 152 U/L (46-116); ALT (SGPT) 23 U/L (10-68); BILIRUBIN - TOTAL 0.54 mg/dL (0.2-1.3); CALC OSMOLALITY 288 mosm/kg (275-300); CARBON DIOXIDE 30.9 mmol/L (21.0-32.0); CHLORIDE - SERUM 106 mmol/L (98-107); CREATININE - SERUM 0.9 mg/dL (0.6-1.3); GLUCOSE 107 mg/dL (74-106); POTASSIUM - SERUM 3.8 mmol/L (3.5-5.1); PROTEIN - SERUM 7.9 g/dL (6.4-8.2); SODIUM 144 mmol/L (136-145); UREA NITROGEN 17 mg/dL (7-18); eGFR NON AFRICAN AMERICAN 88 mL/min (90-120)
[2018-12-16 13:30] LABS: CKMB 1.7 U/L (0.0-3.6); CREATINE KINASE 152 UL (21-232); PRO BNP 1863 pg/mL (0-125)
--- NOTE | 2018-12-16 14:00 | NUR ---
VOIDED 100 ML VIA URINAL
[2018-12-16 14:24] LABS: TROPONIN-I 0.081 ng/mL (0.000-0.060)
--- NOTE | 2018-12-16 15:55 | NUR ---
PT C/O YANCEY. MED PER PRN ORDERS
--- NOTE | 2018-12-16 16:08 | NUR ---
REPORT CALLED TO MARITZA TURNER BY SBAR FORMAT
--- NOTE | 2018-12-16 16:13 | NUR ---
TXD TO ROOM #2238, CONDITION STABLE. ZITHROMAX INFUSING VIA PUMP UPON TX TO ROOM
--- NOTE | 2018-12-16 16:41 | NUR ---
RECEIVED PATIENT FROM ER. ALERT AND ORIENTED, RESTING IN BED. ON 15L O2, HIGHFLOW NC. O2 SATURATION AT 98%. NO C/O PAIN. NO S/S OF ACUTE DISTRESS NOTED. IV TO LEFT AC, SL. SITE PATENT WITHOUT REDNESS OR SWELLING. BRUISE TO LEFT EYE, PT STATED FELL LAST NIGHT. DENIES ANY NEEDS AT THIS TIME. CALL LIGHT IN REACH. WILL CONTINUE TO MONITOR.
--- NOTE | 2018-12-16 17:47 | MORECARE ---
CASE MANAGEMENT DISCHARGE SUMMARY PATIENT: SHALONDA GOODWIN UNIT: [id number] ADM DATE: 12/16/18 AGE: 73 : 44 SEX: M ROOM/BED: D.2238 AUTHOR: HUGH,DOC PHYSICIAN: REFERRING PHYSICIAN: CARRIE PAGE MD DATE OF SERVICE: 12/16/18 Discharge Plan Patient Name: SHALONDA GOODWIN Facility: [facility]:[place] : 1945 Planned Disposition: Home Anticipated Discharge Date: 12/18/18 Discharge Date: Expected LOS: 2 Initial Reviewer: [email or web address] Initial Review Date: 12/16/2018 Generated: 12/16/18 6:46 pm DCP- Discharge Planning Updated by [email or web address]: Peyton Ramos on 12/16/18 4:[address] DC PLAN: Return home alone with resumption [facility]. ANTICIPATED DC NEEDS: Resumption of [facility] CM met with patient to complete initial dc planning assessment. CM educated patient on the CM role and verbal consent given by patient to complete assessment. CM verified patient's address, phone number, and emergency contact phone numbers. Patient lives at home alone. Patient currently has [facility] Services and wishes to resume at discharge. LIAM form signed by patient for resumption of [facility]. Signed form placed in chart and signed form given to patient. At discharge patient plans to return home and feels this is a safe discharge. Patient denied further known discharge needs at this time. Transportation provider at discharge will be his niece Gay @ [phone] . CM will continue to follow and will assist as needed with dc plans/needs. Peyton Rmaos RN, [facility] DCPIA - Discharge Planning Initial Assessment Updated by [email or web address]: Peyton Ramos on 12/16/18 5:42 pm * Is the patient Alert and Oriented? Yes * How many steps to enter\exit or inside your home? elevator * PCP Dr. Page * Pharmacy [facility] * Preadmission Environment Home Alone * ADLs Independent * Equipment Cane Rolling Walker * List name and contact numbers for known caregivers / representatives who currently or will assist patient after discharge: Raymond Moreno [facility] [phone] Teddy Barnett [facility] [phone] * Community resources currently utilized Home Health * Please name any agencies selected above. [facility] - [facility] signed in the ER. * Additional services required to return to the preadmission environment? No * Can the patient safely return to the preadmission environment? Yes * Has this patient been hospitalized within the prior 30 days at any hospital? Yes Coverage Notice Reviewer: [id number] John Ramos Notice Issued Date-Time: 12/16/2018 17:45 Notice Type: Patient Choice Letter Notice Delivered To: Patient Relationship to Patient: Agricultural Real Estate Agent Name: Delivery Method: HAND - Hand Delivered Nasreen Days: Prior Verbal Notification: Recipient Understood Notice: Recipient Signature: Med Rec Note Co-signed by Attending: Coverage Notice Comment: LIAM signed for resumption of [facility] Home [facility]. Patient Name: SHALONDA GOODWIN Page [phone] at 1747 All edits/amendments must be made on the electronic document DICTATION DATE: 12/16/181745 LUBE MAN: MACIEL 12/16/181745 RPT#: [id number] DC DATE: STATUS: ADM IN [facility] [address] [place] [address] END OF REPORT
--- NOTE | 2018-12-16 18:00 | NUR ---
Pt arrived to unit around 174 via bed from Med Surg. On 15L of O2 via oxymizer. Pt alert and oriented. SOB noted on exertion. Bruising noted under left eye. Pt states that he fell at home. No family at bedside. No skin breakdown noted. Safety measures in place. Call ligth in reach. Will continue to monitor.
--- NOTE | 2018-12-16 18:47 | NUR ---
Pt stated that he was hungry. [place] tray and apple juice provided. sheet metal technician in room at this time. Will continue to monitor.
[2018-12-16 19:44] LABS: CKMB 1.5 U/L (0.0-3.6); CREATINE KINASE 191 UL (21-232)
[2018-12-16 19:45] LABS: TROPONIN-I 0.083 ng/mL (0.000-0.060)
--- NOTE | 2018-12-16 20:03 | NUR ---
PT RECEIVED WITH HOB UP, EYES OPEN WATCHING TV. NO S/S OF DISTRESS. RECEIVED CUP OF ICE WATER. SPO2 93% ON HIGH FLOW N/C. NO COMPLAINTS OF PAIN. PEDAL PULSES NOT PALPABLE OR DOPPLERED. TIBIAL PULSES DOPPLERED, LEGS COOL TO TOUCH. WILL CONTINUE TO OBSERVE. CALL LIGHT IN REACH.
--- NOTE | 2018-12-16 21:48 | NUR ---
PT WITH EYES OPEN WATCHING TV. NO S/S OF DISTRESS. NO NEEDS NOTED. CALL LIGHT IN REACH. WILL CONTINUE TO OBSERVE.
--- NOTE | 2018-12-16 23:50 | NUR ---
PT INCONTINENT OF URINE WITH PERICARE PROVIDED WITH COMPLETE LINEN CHANGE. PT TOLERATED WELL. CALL LIGHT IN REACH. WILL CONTINUE TO OBSERVE.
--- NOTE | 2018-12-16 23:58 | NUR ---
SPO2 >95%, O2 DECREASED TO 9LPM VIA HIGH FLOW N/C. WILL CONTINUE TO OBSERVE.
[2018-12-17] VITALS (20 sets, daily range): BP systolic 100–137; BP diastolic 44–71; Ht 167.6 cm; Wt 58.0 kg
--- NOTE | 2018-12-17 01:35 | NUR ---
PT SPO2 MAINTAINING >95% AND HAS BEEN TITRATED DOWN TO 3LPM TOLERATING WELL AT THIS TIME. CALL LIGHT IN REACH. WILL CONTINUE TO OBSERVE.
--- NOTE | 2018-12-17 02:59 | NUR ---
PT STARTED ON BIPAP 0230 TOLERATING WELL AT THIS TIME. CALL LIGHT IN REACH. WILL CONTINUE TO OBSERVE.
--- NOTE | 2018-12-17 03:27 | NUR ---
CONTINUES BIPAP, TOLERATING WELL. WILL CONTNUE TO OBSERVE.
[2018-12-17 04:55] LABS: CKMB 1.3 U/L (0.0-3.6); CREATINE KINASE 151 UL (21-232)
[2018-12-17 05:15] LABS: TROPONIN-I 0.082 ng/mL (0.000-0.060)
--- NOTE | 2018-12-17 06:12 | NUR ---
PT INCONTINENT OF BLADDER WITH CHG BATH GIVEN AND COMPLETE LINEN CHANGE. PT TOLERATED WELL. CONTINUES BIPAP. CALL LIGHT IN REACH. WILL CONTINUE TO OBSERVE.
--- NOTE | 2018-12-17 07:00 | NUR ---
RECEVIED BEDSIDE REPORT ON PATIENT AND ASSUMED CARE. PATIENT RESTING QUIETLY ON BIPAP, FIO2 - 60%, RATE 121, IPAP 14 AND EPAP 6, SPO2 - 97%, CM - SR WITH OCCASSIONAL PVCS, RR - 26 BBS DIMINISHED WITH EXPIRATORY WHEEZE ON RIGHT. SCDS PLACED. HEAD TO TOE ASSESSMENT COMPLETED.
--- NOTE | 2018-12-17 07:00 | NUR ---
RECEIVED BEDSIDE REPORT ON PATIENT AND ASSUMED CARE. PATIENT SITTING UP IN BEDSIDE CHAIR, VSS, ALERT AND ORIENTED X 4. HR 96, CM ATRIAL FLUTTER 4:1, BBS - DIMINISHED AND SHALLOW, IV 20 GA LEFT AC, NSL. STATES NOT HAVING ANY PAIN, COUGHING UP YELLOW SPUTUM. HEAD TO TOE ASSESSMENT COMPLETED.
--- NOTE | 2018-12-17 08:39 | NUR ---
PATIENT PLACED ON NC AT 6 LPM, REPOSITIONED IN BED AND GIVEN BREAKFAST TRAY. NO NEEDS AT THIS TIME, VSS.
--- NOTE | 2018-12-17 08:50 | NUR ---
PATIENT EATING BREAKFAST, SPO2 - 93% ON 6 LPM 02 VIA NC.
--- NOTE | 2018-12-17 09:50 | NUR ---
RAINES CATH INSERTED, PATIENT INCONTINENT OF URINE, RECEIVING LASIX BID FOR PULMONARY EDEMA. UA/CULTURE SENT TO LAB.
[2018-12-17 10:07] LABS: APPEARANCE CLEAR (CLEAR); BILIRUBIN NEGATIVE (NEGATIVE); COLOR YELLOW (YELLOW); GLUCOSE NEGATIVE (NEGATIVE); KETONE NEGATIVE (NEGATIVE); NITRITE NEGATIVE (NEGATIVE); PROTEIN NEGATIVE (NEGATIVE); UROBILINOGEN NORMAL (NORMAL)
--- NOTE | 2018-12-17 11:00 | NUR ---
REASSESSMENT COMPLETED. UP TO BEDSIDE CHAIR. O2 TURNED DOWN FROM 6 LPM TO 2 LPM SPO2 95%, CM 73, NSR, BBS CLEAR BUT DIMINISHED. DR. BROOKS AT ROOM STATES IF SPO2 REMAINS STABLE CAN TRANSFER IN 2 HRS TO FLOOR BED.
--- NOTE | 2018-12-17 11:34 | NUR ---
PATIENT GIVEN LUNCH TRAY ASSISTED WITH SET UP. VSS.
--- NOTE | 2018-12-17 12:28 | NUR ---
PATIENT WITH FAMILY MEMBERS AT BEDSIDE, UPDATED AND QUESTIONS ANSWERED.
--- NOTE | 2018-12-17 13:14 | NUR ---
DR. DAUGHERTY AT ROOM UPDATED AND EXAMINES PATIENT. PLACES TRANSFER ORDERS TO FLOOR.
--- NOTE | 2018-12-17 13:57 | NUR ---
PATIENT SITTING UP IN BEDSIDE CHAIR, NC AT 2 LPM 02 WITH SPO2 - 95%. LASIX 40 MG IVP WITH NS FLUSH GIVEN PER MAY. NO NEEDS AT THIS TIME.VSS.
--- NOTE | 2018-12-17 14:35 | NUR ---
PATIENT ASSISTED TO BATHROOM FOR BM.
--- NOTE | 2018-12-17 14:45 | NUR ---
PATIENT WITH SMALL BM.
--- NOTE | 2018-12-17 15:03 | NUR ---
REASSESSMENT COMPLETE. VSS. IV ANTIBIOTIC PER MAR STARTED.
--- NOTE | 2018-12-17 16:37 | NUR ---
REPORT CALLED TO KITTY SALAS ON MED 2, TO TRANSFER PATIENT TO ROOM 2106. TRANSPORTED VIA WHEELCHAIR AND O2.
--- NOTE | 2018-12-17 17:20 | NUR ---
1715 RECEIVED PATIENT TO UNIT VIA WHEELCHAIR. PATIENT ALERT/ORIENTED, STAND BY ASSIST. PATIENT NOTED TO DESAT QUICKLY ON EXERTION EVEN WITH OXYGEN ON. PATIETN ASSISTED INTO BED. TELEMETRY APPLIED. CALL LIGHT WITHIN REACH. TELEPHONE IN REACH. IV TO LEFT AC IS SALINE LOCKED. FEMALE VISITOR AT BEDSIDE AND STATES SHE IS LEAVING BUT WILL BE BACK TOMORROW. NO DISTRESS. PATIENT STATES HE DID NOT EAT DINNER IN ICU. WILL GET PATIENT A TRAY.
--- NOTE | 2018-12-17 17:27 | NUR ---
PATIENT CONSUMING PM MEAL AT THIS TIME. CALL LIGHT WITHIN REACH. NO DISTRESS.
--- NOTE | 2018-12-17 19:15 | NUR ---
EVENING ROUNDS COMPLETE. PT LAYING IN BED. NO SIGNS OF DISTRESS. PT DENINES ANY PAIN OR NEEDS AT THIS TIME. CL IN REACH, BED IN LOWEST POSITION.
[2018-12-18] VITALS: BP 119/60
[2018-12-18 04:00] VITALS: BP 121/59
[2018-12-18 05:05] LABS: BASOPHILS 0.2 % (0-2); EOSINOPHILS 0.3 % (0-7); HEMATOCRIT 41.2 % (42.0-54.0); HEMOGLOBIN 12.8 g/dL (13.5-17.5); IMMATURE GRANULOCYTES 0.4 % (0-5); LYMPHOCYTES 12.1 % (15-50); MCH 28.6 pg (26.0-34.0); MCHC 31.1 g/dL (31.0-37.0); MEAN PLATELET VOLUME 9.7 fL (7.4-10.4); MONOCYTES 9.8 % (2-11); NEUTROPHILS 77.2 % (40-80); PLATELET COUNT 234 10x3/uL (130-400); RBC 4.47 10x6/uL (4.20-6.10); RDW 16.3 % (11.5-14.5)
[2018-12-18 05:14] LABS: MCV 92.2 fL (80.0-100.0); WBC 15.5 10x3/uL (4.8-10.8)
[2018-12-18 05:15] LABS: ANION GAP 10.8 mmol/L (8-16); CALCIUM 9.5 mg/dL (8.5-10.1); CARBON DIOXIDE 35.1 mmol/L (21.0-32.0); POTASSIUM - SERUM 3.9 mmol/L (3.5-5.1)
[2018-12-18 05:17] LABS: CREATININE - SERUM 1.2 mg/dL (0.6-1.3)
[2018-12-18 05:19] LABS: APTT 33.7 SECONDS (22.8-39.4); INR 1.12 (0.85-1.17); PROTIME 13.9 SECONDS (11.6-15.0)
--- NOTE | 2018-12-18 06:56 | NUR ---
REPORT RECIEVED. HE IS ASLEEP WITH RESP EVEN WITHOUT LABOR.F/C PATENT, O2 ON AT 4L/M PER HIGHFLOW N/C. SALINE LOCK INTACT. BED IN LOWEST POSITION AND LOCKED. CAREPLAN REVIEW DONE WITH SAFETY PRECAUTIONS IN PLACE
[2018-12-18 09:25] VITALS: BP 128/65
--- NOTE | 2018-12-18 12:00 | NUR ---
RETURN FROM IR WITH DRESSING D/I TO UPPER RIGHT CHEST, HE IS AWAKE AND ALERT VSS, BBS WITH RHONCHI IN LEFT UPPER LUNG WITH ALL OTHER PACHECO CLEAR, O2 IS ON SALINE LOCK INTACT, FOOD IN ROOM WITH FAMILY ASSIST TO EAT HE IS ABLE TO SWALLOW WITHOUT DIFF. CL IN REACH DENIES ANY PAIN OR ISSUES AT THIS TIME
--- NOTE | 2018-12-18 17:30 | NUR ---
HE OFFERS NO C/O. DRESSING D/I TO CHEST. HE HAS BLOOD STREAKED SPUTUM AT TIMES. FAMILY AT BEDSIDE
[2018-12-18 17:43] VITALS: BP 144/70
[2018-12-18 20:00] VITALS: BP 124/60
--- NOTE | 2018-12-18 20:16 | NUR ---
LYING QUEITLY WITH NO DISTRESS NOTED. RESP UNALBORED. O2 @ 5L PER HIGHFLOW INTACT. SL TO LAC INTACT WITHOUT REDNESS OR EDEMA NOTED. RAINES PATENT AND DRAINING DARK ETHAN URINE. CL IN REACH. FALL PRECAUTIONS IN PLACE
[2018-12-19] VITALS: BP 131/68
[2018-12-19 04:00] VITALS: BP 122/62
[2018-12-19 05:12] LABS: BASOPHILS 0.3 % (0-2); EOSINOPHILS 0.9 % (0-7); HEMATOCRIT 35.5 % (42.0-54.0); HEMOGLOBIN 11.2 g/dL (13.5-17.5); IMMATURE GRANULOCYTES 0.1 % (0-5); LYMPHOCYTES 16.7 % (15-50); MCH 28.6 pg (26.0-34.0); MCHC 31.5 g/dL (31.0-37.0); MCV 90.8 fL (80.0-100.0); MEAN PLATELET VOLUME 9.8 fL (7.4-10.4); MONOCYTES 11.7 % (2-11); NEUTROPHILS 70.3 % (40-80); PLATELET COUNT 238 10x3/uL (130-400); RBC 3.91 10x6/uL (4.20-6.10); RDW 16.1 % (11.5-14.5)
[2018-12-19 05:27] LABS: ANION GAP 8.1 mmol/L (8-16); CALCIUM 8.7 mg/dL (8.5-10.1); CARBON DIOXIDE 34.8 mmol/L (21.0-32.0); CREATININE - SERUM 1.1 mg/dL (0.6-1.3); POTASSIUM - SERUM 3.9 mmol/L (3.5-5.1)
[2018-12-19 05:45] LABS: WBC 11.3 10x3/uL (4.8-10.8)
--- NOTE | 2018-12-19 06:55 | NUR ---
REPORT RECEIVED. ALERT DENIES ANY PAIN OR DISCOMFORT AT THIS TIME. DRESSING TO RIGHT UPPER CHEST D/I. HE DOES GET SOB WITH ANY EXERCTION. SPUTUM IS RUST COLORED. CL IN REACH. O2 ON AT 5 L/P PER HIGH FLOW N/C
[2018-12-19 08:30] VITALS: BP 126/64
[2018-12-19 12:30] VITALS: BP 136/67
--- NOTE | 2018-12-19 13:16 | NUR ---
Nutrition Follow-up: Pt sitting up in chair eating lunch at time of visit. Reports eating well. Likes Boost. No GI complaints. Noted pt had RML lung biopsy yesterday. Diet: Cardiac, Boost with meals PO intake: 67% avg x 6 meals No new wt Last BM: 12/18 per chart Labs noted: Glu 126 Meds reviewed -Continue current diet/supplement as tolerated. -Rec new wt. -RD following.
--- NOTE | 2018-12-19 14:30 | NUR ---
O2 SAT IS IN 70'S REPORTED BY IS SUPPORT ANALYST. HE WAS PULLED UP IN THE BED SINCE HE HAD SLID DONE. RT WAS CALLED AND O2 WAS INCREASED TO 10L/M PER N/C. O2 SAT CAME BACK UP TO 90% BUT HE WAS BREATHING WITH SOME LABOR STILL. ENCOURAGED TO BREATHE IN THROUGH NOSE AND OUT THROUGH MOUTH. RT IS ON HER WAY. FAMILY AT BEDSIDE
--- NOTE | 2018-12-19 16:30 | NUR ---
BIPAP IS ON DUE TO INCREASED RESP AND O2 SAT DECREASING. O2 SAT ON BIPAP IS 95%. HE REMAINS ALERT, WITH SEVERAL FAMILY MEMBERS AT BEDSIDE
[2018-12-19 16:37] VITALS: BP 152/69
--- NOTE | 2018-12-19 17:30 | NUR ---
BIPAP WAS REMOVED TO EAT SUPPER AND N/C HIGHFLOW AT 10 LITERS WAS APPLIED UPON COMPLETION OF SUPPER HIS BIPAP WAS REAPPLIED. BBS ARE LESS DIMINISHED IN UPPER LOBES
--- NOTE | 2018-12-19 19:30 | NUR ---
PT RESTING QUIETLY. CL IN REACH. EYES CLOSED. BIPAP ON. NO DISTRESS NOTED. RESP EVEN AND UNLABORED. WCTM NO SIGNS OF PAIN. BED IN LOW SIDE RAILS X2. PT ON TELEMETRY.
[2018-12-19 20:00] VITALS: BP 151/72
[2018-12-20] VITALS: BP 140/68
[2018-12-20 04:00] VITALS: BP 133/66
[2018-12-20 05:04] LABS: BASOPHILS 0.2 % (0-2); HEMATOCRIT 35.9 % (42.0-54.0); HEMOGLOBIN 11.2 g/dL (13.5-17.5); IMMATURE GRANULOCYTES 0.3 % (0-5); LYMPHOCYTES 11.9 % (15-50); MCH 28.5 pg (26.0-34.0); MCHC 31.2 g/dL (31.0-37.0); MCV 91.3 fL (80.0-100.0); MEAN PLATELET VOLUME 10.2 fL (7.4-10.4); MONOCYTES 13.6 % (2-11); PLATELET COUNT 238 10x3/uL (130-400); RBC 3.93 10x6/uL (4.20-6.10); RDW 15.8 % (11.5-14.5)
[2018-12-20 05:13] LABS: ANION GAP 9.8 mmol/L (8-16); CARBON DIOXIDE 33.5 mmol/L (21.0-32.0); CREATININE - SERUM 1.1 mg/dL (0.6-1.3); POTASSIUM - SERUM 4.3 mmol/L (3.5-5.1)
--- NOTE | 2018-12-20 07:43 | NUR ---
REPORT RECIEVED. PT SITTING SEMI FOWLERS IN BED. RR EVEN AND UNLABORED ON 8L HIGH FLOW NC. HE HAS A RAINES DRAINING URINE AND A L AC PIV THAT IS SL. BED LOCKED AND IN LOWEST POSITION, CALL LIGHT WITHIN REACH. WILL CTM
[2018-12-20 09:59] VITALS: BP 132/63
--- NOTE | 2018-12-20 13:28 | EC ---
PATIENT:SHALONDA GOODWIN DATE OF SERVICE: 12/16/18 SEX: M MEDICAL RECORD: [id number] DATE OF : [birth year] LOCATION:D.M2 D.210 AGE OF PATIENT: 73 ADMISSION DATE: 12/16/18 REFERRING PHYSICIAN: INTERPRETING PHYSICIAN: LACY RUBALCAVA MD ECHOCARDIOGRAM REPORT ECHO CHARGES 4 ECHO COMPLETE Date: 12/17/18 CLINICAL DIAGNOSIS: CHF HX CAD/AVR ECHOCARDIOGRAPHIC MEASUREMENTS (adult normal given) AC root (d.<3.7cm) 2.5 cm LV Septum d (<1.2 cm> 1.3 cm Valve Excursion 1.5 cm LV Septum (systole) 1.5 cm Left Atria (s.<4.0cm> 3.5 cm LVPW d(<1.2cm) 1.0 cm RV (d.<2.3cm) 3.3 cm LVPW (sytole) 1.1 cm LV diastole(<5.6CM) 4.4 cm MV E-F(>70mm/sec) cm LV systole 3.3 cm LVOT Diameter 1.5 cm MV exc.(>10mm) cm Est.ejection fraction (50-75%) % DOPPLER: LVIT cm/sec A 70.0 cm/sec E 66.0 cm/sec LA cm/sec RVSP 43.8 mmHg LVOT 118 cm/sec AOP1/2T m/s Asc. Ao 216 cm/sec RVOT 83 cm/sec RA cm/sec PA 131 cm/sec AV Gradient Peak 18.6 mmHg AV Mean 8.3 mmHg AV Area 1.1 cm MV Gradient Peak 2.8 mmHg MV Mean 1.3 mmHg MV Area cm COMMENTS: Amusement Ride Operator: Helene HOLLOWAY Pastry Cook Apprentice: 1 Dr. Rubalcava TAPE# PACS Pericardial Effusion N DATE OF SERVICE: FINDINGS: 1. Left ventricular chamber size is within normal limits. Left ventricular systolic function is normal. Overall ejection fraction is 60% to 65%. 2. Left atrium, right atrium, and right ventricle chamber sizes are within normal limits. 3. Valvular structures: Aortic valve is replaced with a mechanical prosthesis with normal structure and function in this position. The remaining valvular structures have normal structure and motion. ECHOCARDIOGRAM REPORT [id number] SHALONDA GOODWIN 4. Doppler interrogation only reveals trace aortic insufficiency. No other valvular insufficiency or stenosis. Pulmonary systolic pressure is estimated at 44 mmHg. 5. No evidence of pericardial effusion or left ventricular thrombus. TRANSINT:[id number] Voice Confirmation ID: [id number] DOCUMENT ID: [id number] LACY RUBALCAVA MD at 1328 CC: [id number] DICTATION DATE: 12/17/18 1240 PHLEBOTOMIST MEDICAL LAB ASSISTANT: 12/17/18 1258 ADM IN [place] [id number] [place] [address]
--- NOTE | 2018-12-20 13:28 | CN ---
PATIENT NAME:SHALONDA GOODWIN MEDICAL RECORD: [id number] : 43 LOCATION:D. D.2106 ADMIT DATE: 12/16/18 ACCOUNT: [id number] CONSULTING PHYSICIAN: LACY HENDERSON MD REFERRING PHYSICIAN: CARRIE PAGE MD DATE OF CONSULTATION: 12/17/2018 DIAGNOSES: 1. Shortness of breath. 2. Pneumonia. 3. Valvular heart disease, aortic valve replacement. 4. Hypertension. HISTORY OF PRESENT ILLNESS: This is a gentleman only with a past history of aortic valve replacement and hypertension. No history of congestive heart failure. He presents with shortness of breath. Initially, he was deemed to have pulmonary edema; however, chest x-ray is not compatible with pulmonary edema, it is compatible with pneumonia. He does not have a history of congestive heart failure. He has had no chest pain, no chest discomfort, only the shortness of breath and productive cough along with fevers. PHYSICAL EXAMINATION: CONSTITUTIONAL/GENERAL APPEARANCE: Well nourished, well developed, appears stated age. EYES: Lids and conjunctivae noninjected. No discharge. No pallor. ENT: Lips within normal limit. No cyanosis. No pallor. NECK: Carotid arteries, bilateral normal upstroke. No bruits. No thrills. No jugular venous pressure or distention. CERVICAL LYMPH NODES: Nontender. Nonenlarged. THYROID: Not enlarged. No nodules. CARDIOVASCULAR: Precordial exam, nondisplaced. No heaves or pericardial thrills. Rate and rhythm, regular. Heart sounds, normal S1, normal S2. No S3, no gallop, no rub. Systolic murmur, not heard. Diastolic murmur, not heard. RESPIRATORY: Respiratory effort, unlabored. Normal curvature. No thoracic deformity. No chest wall tenderness. Percussion, resonant. Auscultation, clear. No wheezes, no rales, no rhonchi. ABDOMEN: Soft, nondistended, nontender. No abdominal pain, no vomiting and normal appetite. MUSCULOSKELETAL: No joint tenderness, normal gait, normal tone. SKIN: Warm and dry. OVERALL IMPRESSION: Shortness of breath. Chest x-ray is more compatible with pneumonia, now pulmonary edema. At this time, we will get an echocardiogram to assess his overall LV function and the integrity of the valvular structures. Further care depends upon the findings of the echo. TRANSINT:[id number] Voice Confirmation ID: [id number] DOCUMENT ID: [id number] CONSULT REPORT [id number] SHALONDA GOODWIN, LACY SHELDON at 1328 CC: [id number] DICTATION DATE: 12/17/18 1023 HIDE EXAMINER: 12/17/18 1043 ADM IN [place] [address] [place] [address]
--- NOTE | 2018-12-20 14:31 | NUR ---
I have reviewed this patient and I concur with the Shift Assessment completed by the Licensed Practical Nurse today this shift.
[2018-12-20 15:09] VITALS: BP 128/60
[2018-12-20 16:00] VITALS: BP 138/70
--- NOTE | 2018-12-20 19:40 | NUR ---
RPEORT RECIEVED AND ROUNDING COMPLETE. PATIENT LAYING IN BED IN SUPINE POSTION. HOB ELEVATED 20%. PATIENT A&O X4. PATIENT HAS A RAINES FOR RETENTION, RAINES HAS DARK URINE IN RAINES BAG. PATINET IS WEARNG O2 AT 8L PER NASAL CANNULA. PATIENT HAS A LEFT AC THAT IS SALINE LOCKED AT THIS TIME. PATIENT IS SHOWING NO S/SX OF DISTRESS AT THIS TIME. PATIENT STATES HE HAS NO NEEDS AT THIS TIME. CALL LIGHT WITHIN REACH AND BED IN LOWEST LOCKED POSITION.
[2018-12-20 20:00] VITALS: BP 188/89
[2018-12-21] VITALS (7 sets, daily range): BP systolic 125–158; BP diastolic 59–76
--- NOTE | 2018-12-21 02:32 | NUR ---
I have reviewed this patient and I concur with the Shift Assessment completed by the Licensed Practical Nurse today this shift.
[2018-12-21 04:49] LABS: BASOPHILS 0.3 % (0-2); EOSINOPHILS 2.1 % (0-7); HEMATOCRIT 36.1 % (42.0-54.0); HEMOGLOBIN 11.2 g/dL (13.5-17.5); IMMATURE GRANULOCYTES 0.3 % (0-5); LYMPHOCYTES 14.7 % (15-50); MCH 28.8 pg (26.0-34.0); MCV 92.8 fL (80.0-100.0); MEAN PLATELET VOLUME 9.8 fL (7.4-10.4); NEUTROPHILS 69.6 % (40-80); PLATELET COUNT 274 10x3/uL (130-400); RBC 3.89 10x6/uL (4.20-6.10); RDW 15.8 % (11.5-14.5)
[2018-12-21 05:05] LABS: CALC OSMOLALITY 296 mosm/kg (275-300); CALCIUM 9.2 mg/dL (8.5-10.1); CARBON DIOXIDE 34.2 mmol/L (21.0-32.0); CHLORIDE - SERUM 107 mmol/L (98-107); CREATININE - SERUM 0.9 mg/dL (0.6-1.3); GLUCOSE 142 mg/dL (74-106); POTASSIUM - SERUM 4.2 mmol/L (3.5-5.1); SODIUM 145 mmol/L (136-145); UREA NITROGEN 30 mg/dL (7-18); eGFR NON AFRICAN AMERICAN 88 mL/min (90-120)
--- NOTE | 2018-12-21 07:00 | NUR ---
RECEIVED REPORT. ASSUMED CARE OF PATIENT. CALL LIGHT WITHIN REACH. PATIENT RESP EVEN AND UNLABORED. NO HIGH FLOW NASAL CANULA AT THIS TIME. DENIES NEEDS. F/C PATENT. NO DISTRESS.
--- NOTE | 2018-12-21 09:30 | NUR ---
ENCOURAGED USE OF INCENTIVE SPIROMETRY. PATIENT WORKING WITH IT NOW. CALL LIGHT WITHIN REACH.
--- NOTE | 2018-12-21 11:39 | NUR ---
PT OOB TO CHAIR AT BEDSIDE WITH PHYSICAL THERAPY. NO DISTRESS. TOLERATING SITTING UP WELL. PATIENT STATES HE IS ABLE TO COUGH UP MORE AND CLEAR HIS LUNGS BETTER WHILE UP TO THE CHAIR.
--- NOTE | 2018-12-21 14:14 | NUR ---
ASSISTED PATIENT FROM CHAIR TO BEDSIDE COMMODE AND THEN TO BED. CALL LIGHT WITHIN REACH. NO DISTRESS.
--- NOTE | 2018-12-21 19:30 | NUR ---
PT ALERT AND ORIENTED RR EVEN AND UNLABORED WITH 9L HIGH FLOW O2. LAYING IN BED WATCHING FOOTBALL. NO S/S OF DISTRESS AT THIS TIME. BED LOW CALL LIGHT WITHIN REACH. WILL CONTINUE TO MONITOR.
--- NOTE | 2018-12-22 01:03 | NUR ---
PT RESTING IN BED WITH EYES CLOSED AND BIPAP ON. NO S/S OF DISTRESS AT THIS TIME. BED LOW CALL LIGHT WITHIN REACH. WILL CONTINUE TO MONITOR.
--- NOTE | 2018-12-22 01:14 | NUR ---
I have reviewed this patient and I concur with the Shift Assessment completed by the Licensed Practical Nurse today this shift.
[2018-12-22 04:00] VITALS: BP 152/74
[2018-12-22 05:21] LABS: BASOPHILS 0.5 % (0-2); EOSINOPHILS 5.9 % (0-7); HEMATOCRIT 38.3 % (42.0-54.0); HEMOGLOBIN 11.8 g/dL (13.5-17.5); IMMATURE GRANULOCYTES 0.3 % (0-5); LYMPHOCYTES 20.7 % (15-50); MCH 28.8 pg (26.0-34.0); MCHC 30.8 g/dL (31.0-37.0); MCV 93.4 fL (80.0-100.0); MEAN PLATELET VOLUME 9.9 fL (7.4-10.4); MONOCYTES 12.3 % (2-11); NEUTROPHILS 60.3 % (40-80); PLATELET COUNT 266 10x3/uL (130-400); RDW 15.9 % (11.5-14.5); WBC 10.5 10x3/uL (4.8-10.8)
[2018-12-22 05:30] LABS: CALC OSMOLALITY 301 mosm/kg (275-300); CALCIUM 9.7 mg/dL (8.5-10.1); CARBON DIOXIDE 35.9 mmol/L (21.0-32.0); CHLORIDE - SERUM 109 mmol/L (98-107); GLUCOSE 138 mg/dL (74-106); POTASSIUM - SERUM 4.5 mmol/L (3.5-5.1); SODIUM 147 mmol/L (136-145); UREA NITROGEN 34 mg/dL (7-18); eGFR NON AFRICAN AMERICAN 78 mL/min (90-120)
--- NOTE | 2018-12-22 07:00 | NUR ---
RECEIVED REPORT. ASSUMED CARE OF PATIENT. CALL LIGHT WITHIN REACH. PATIENT RESTING, SITTING UP IN BED WITH EYES OPEN. RESP EVEN AND UNLABORED. CONTINUES TO HAVE SPUTUM PRODUCTION BUT LESS RHONCHI NOTED TO CHEST TODAY COMPARED TO YESTERDAY. PATIENT STATES HE FEELS GOOD THIS MORNING AND THAT HE SLEPT WELL LAST NIGHT. DENIES NEEDS AT THIS TIME.
[2018-12-22 08:56] VITALS: BP 148/71
--- NOTE | 2018-12-22 10:30 | NUR ---
PATIENT OOB WITH PT. PATIENT AMBULATED WITH WALKER WITH PHYSICAL THERAPY FOR 250 FT, NO DISTRESS. TOLERATED THERAPY WELL.
--- NOTE | 2018-12-22 12:00 | NUR ---
SITTING IN CHAIR AT BEDSIDE. NO DISTRESS.
--- NOTE | 2018-12-22 15:00 | NUR ---
RESTING IN BED. NO DISTRESS. PATIENT WITH MALE VISITOR AT BEDSIDE. CALL LIGHT WITHIN REACH.
[2018-12-22 18:18] VITALS: BP 113/71
--- NOTE | 2018-12-22 19:10 | NUR ---
EVENING ROUNDS COMPLETED. PATIENT RESTING IN BED WITH EYES OPEN. NO C/O PAIN OR DISCOMFORT. DENIES HAVING ANY NEEDS AT THIS TIME. BED IN LOWEST POSITION. SIDE RAILS UP. CALL LIGHT IN REACH. WILL CONTINUE TO MONITOR.
[2018-12-22 20:00] VITALS: BP 138/73
[2018-12-23] VITALS: BP 145/71
--- NOTE | 2018-12-23 04:30 | NUR ---
PATIENT RESTING IN BED WITH EYES CLOSED. NO SIGNS OF DISTRESS. BED IN LOWEST POSITION. SIDE RAILS UP. CALL LIGHT IN REACH. WILL CONTINUE TO MONITOR.
[2018-12-23 09:04] VITALS: BP 137/68
--- NOTE | 2018-12-23 11:09 | NUR ---
PATIENT SITTING IN CHAIR. NO NEEDS AT THIS TIME. CHAIR ALARM ON. CL AND PHONE IN REACH. [facility]
[2018-12-23 14:57] VITALS: BP 134/76
[2018-12-23 18:15] VITALS: BP 128/58
--- NOTE | 2018-12-23 19:20 | NUR ---
PT SITTING UP IN BED. CL IN REACH. DENIES NEEDS AT THIS TIME. BED IN LOW SIDE RAILS X2. A/O X4. RESP EVEN AND UNLABORED. O2 ON 9L HIGH FLOW. RAINES INTACT. LUNGS DIMINISHED. BOWEL ACTIVE X4. WCTM
[2018-12-23 19:42] VITALS: BP 139/71
[2018-12-23 23:49] VITALS: BP 157/91
[2018-12-24 04:48] VITALS: BP 137/68
[2018-12-24 06:08] LABS: BASOPHILS 0.4 % (0-2); EOSINOPHILS 7.4 % (0-7); HEMATOCRIT 37.7 % (42.0-54.0); HEMOGLOBIN 11.7 g/dL (13.5-17.5); IMMATURE GRANULOCYTES 0.5 % (0-5); LYMPHOCYTES 22.8 % (15-50); MCH 28.2 pg (26.0-34.0); MCV 90.8 fL (80.0-100.0); MEAN PLATELET VOLUME 9.9 fL (7.4-10.4); MONOCYTES 9.8 % (2-11); NEUTROPHILS 59.1 % (40-80); RBC 4.15 10x6/uL (4.20-6.10); RDW 15.4 % (11.5-14.5); WBC 9.5 10x3/uL (4.8-10.8)
[2018-12-24 06:12] LABS: PLATELET COUNT 321 10x3/uL (130-400)
[2018-12-24 06:38] LABS: CALC OSMOLALITY 277 mosm/kg (275-300); CALCIUM 9.3 mg/dL (8.5-10.1); CARBON DIOXIDE 32.8 mmol/L (21.0-32.0); CHLORIDE - SERUM 99 mmol/L (98-107); GLUCOSE 117 mg/dL (74-106); POTASSIUM - SERUM 4.8 mmol/L (3.5-5.1); SODIUM 136 mmol/L (136-145); UREA NITROGEN 27 mg/dL (7-18); eGFR NON AFRICAN AMERICAN 78 mL/min (90-120)
--- NOTE | 2018-12-24 08:36 | NUR ---
AM MEDS GIVEN AT THIS TIME, ALSO HELPED PT TO BATHROOM, PT WILL PUT CALL LIGHT ON WHEN DONE USING BATHROOM.
[2018-12-24 09:04] VITALS: BP 154/80
--- NOTE | 2018-12-24 12:03 | MORECARE ---
CASE MANAGEMENT DISCHARGE SUMMARY PATIENT: SHALONDA GOODWIN UNIT: [id number] ADM DATE: 12/16/18 AGE: 73 : 43 SEX: M ROOM/BED: D.2106 AUTHOR: HUGH,DOC PHYSICIAN: REFERRING PHYSICIAN: CARRIE PAGE MD DATE OF SERVICE: 12/24/18 Discharge Plan Patient Name: SHALONDA GOODWIN Facility: [facility]:[place] : 1945 Planned Disposition: [facility] Facility Anticipated Discharge Date: 12/25/18 Discharge Date: Expected LOS: 9 Initial Reviewer: [email or web address] Initial Review Date: 12/16/2018 Generated: 12/24/18 1:02 pm DCP- Discharge Planning Updated by [email or web address]: Peyton Ramos on 12/16/18 4:[address] DC PLAN: Return home alone with resumption [facility]. ANTICIPATED DC NEEDS: Resumption of [facility] CM met with patient to complete initial dc planning assessment. CM educated patient on the CM role and verbal consent given by patient to complete assessment. CM verified patient's address, phone number, and emergency contact phone numbers. Patient lives at home alone. Patient currently has [facility] Services and wishes to resume at discharge. LIAM form signed by patient for resumption of [facility]. Signed form placed in chart and signed form given to patient. At discharge patient plans to return home and feels this is a safe discharge. Patient denied further known discharge needs at this time. Transportation provider at discharge will be his niece Gay @ [phone] . CM will continue to follow and will assist as needed with dc plans/needs. Peyton Ramos RN, [facility] DCPIA - Discharge Planning Initial Assessment Updated by [email or web address]: Peyton Ramos on 12/16/18 5:42 pm * Is the patient Alert and Oriented? Yes * How many steps to enter\exit or inside your home? elevator * PCP Dr. Page * Pharmacy [facility] * Preadmission Environment Home Alone * ADLs Independent * Equipment Cane Rolling Walker * List name and contact numbers for known caregivers / representatives who currently or will assist patient after discharge: Raymond Moreno [facility] [phone] Teddy mcarthur - [phone] * Community resources currently utilized Home Health * Please name any agencies selected above. [facility] - LIAM signed in the ER. * Additional services required to return to the preadmission environment? No * Can the patient safely return to the preadmission environment? Yes * Has this patient been hospitalized within the prior 30 days at any hospital? Yes External Providers External Provider: [facility] Next Contact Date: 12/24/2018 Service Request Date: Service Type: Resolution: Reviewer: Comments: Coverage Notice Reviewer: [email or web address] - Peyton Ramos Notice Issued Date-Time: 12/16/2018 17:45 Notice Type: Patient Choice Letter Notice Delivered To: Patient Relationship to Patient: Surface Supervisor Name: Delivery Method: HAND - Hand Delivered Nasreen Days: Prior Verbal Notification: Recipient Understood Notice: Recipient Signature: Med Rec Note Co-signed by Attending: Coverage Notice Comment: LIAM signed for resumption of [facility] Home [facility]. Last DP export: 12/16/18 4:46 Patient Name: SHALONDA GOODWIN Page [id number] at 1203 All edits/amendments must be made on the electronic document DICTATION DATE: 12/24/18 1202 NUCLEAR WEAPONS MECHANICAL SPECIALIST: MACIEL 12/24/18 120 RPT#: [id number] DC DATE: STATUS: ADM IN [facility] [address] [place] [address] END OF REPORT
--- NOTE | 2018-12-24 12:51 | NUR ---
Nutrition Follow-up: Pt reports overall good PO intake. Drinking Boost with meals. Reports chicken for lunch was too dry/difficult to chew. Diet: Cardiac, Boost TID PO intake: 77% avg x 9 meals Wt: 122# (down from 123.4# on 12/16) Last BM: 12/24 Labs reviewed Meds noted: Miralax, Lasix -Will add dental soft to current diet order. -RD following.
[2018-12-24 12:59] VITALS: BP 138/80
--- NOTE | 2018-12-24 13:07 | MORECARE ---
CASE MANAGEMENT DISCHARGE SUMMARY PATIENT: SHALONDA GOODWIN UNIT: [id number] ADM DATE: 12/16/18 AGE: 73 : 43 SEX: M ROOM/BED: D.2106 AUTHOR: HUGH,DOC PHYSICIAN: REFERRING PHYSICIAN: CARRIE PAGE MD DATE OF SERVICE: 12/24/18 Discharge Plan Patient Name: SHALONDA GOODWIN Facility: [facility]:[place] : 1945 Planned Disposition: Half-Way Facility Anticipated Discharge Date: 12/25/18 Discharge Date: Expected LOS: 9 Initial Reviewer: [email or web address] Initial Review Date: 12/16/2018 Generated: 12/24/18 2:07 pm DCP- Discharge Planning Updated by [email or web address]: Peyton Ramos on 12/16/18 4:[address] DC PLAN: Return home alone with resumption [facility]. ANTICIPATED DC NEEDS: Resumption of [facility] CM met with patient to complete initial dc planning assessment. CM educated patient on the CM role and verbal consent given by patient to complete assessment. CM verified patient's address, phone number, and emergency contact phone numbers. Patient lives at home alone. Patient currently has [facility] Services and wishes to resume at discharge. LIAM form signed by patient for resumption of [facility]. Signed form placed in chart and signed form given to patient. At discharge patient plans to return home and feels this is a safe discharge. Patient denied further known discharge needs at this time. Transportation provider at discharge will be his niece Gay @ [phone] . CM will continue to follow and will assist as needed with dc plans/needs. Peyton Ramos RN, [facility] DCPIA - Discharge Planning Initial Assessment Updated by [email or web address]: Rayo Floyd on 12/24/18 1:06 pm * Is the patient Alert and Oriented? Yes * How many steps to enter\exit or inside your home? elevator * PCP Dr. Page * Pharmacy [facility] * Preadmission Environment Home Alone * ADLs Independent * Equipment Cane Rolling Walker * List name and contact numbers for known caregivers / representatives who currently or will assist patient after discharge: Raymond Moreno [facility] [phone] Teddy mcarthur - [phone] PRAVEEN RENNER, * Community resources currently utilized Home Health * Please name any agencies selected above. [facility] - LIAM signed in the ER. * Additional services required to return to the preadmission environment? No * Can the patient safely return to the preadmission environment? Yes * Has this patient been hospitalized within the prior 30 days at any hospital? Yes Coverage Notice Reviewer: [email or web address] John Ramos Notice Issued Date-Time: 12/16/2018 17:45 Notice Type: Patient Choice Letter Notice Delivered To: Patient Relationship to Patient: Door To Door Salesman Name: Delivery Method: HAND - Hand Delivered Nasreen Days: Prior Verbal Notification: Recipient Understood Notice: Recipient Signature: Med Rec Note Co-signed by Attending: Coverage Notice Comment: LIAM signed for resumption of [facility] Home Health. Last DP export: 12/24/18 11:03 Patient Name: SHALONDA GOODWIN Page 24455 at 1307 All edits/amendments must be made on the electronic document DICTATION DATE: 12/24/18 1307 FLOOR WORKER TRANSFER BAY: MACIEL 12/24/18 1307 RPT#: [id number] DC DATE: STATUS: ADM IN [facility] [address] [place] [address] END OF REPORT
--- NOTE | 2018-12-24 13:22 | MORECARE ---
CASE MANAGEMENT DISCHARGE SUMMARY PATIENT: SHALONDA GOODWIN UNIT: [id number] ADM DATE: 12/16/18 AGE: 73 : 44 SEX: M ROOM/BED: D.2106 AUTHOR: HUGH,DOC PHYSICIAN: REFERRING PHYSICIAN: CARRIE PAGE MD DATE OF SERVICE: 12/24/18 Discharge Plan Patient Name: SHALONDA GOODWIN Facility: [facility]:[place] : 1945 Planned Disposition: [facility] Facility Anticipated Discharge Date: 12/25/18 Discharge Date: Expected LOS: 9 Initial Reviewer: [email or web address] Initial Review Date: 12/16/2018 Generated: 12/24/18 2:22 pm Comments DCP- Discharge Planning Updated by [email or web address]: Rayo Floyd on 12/24/18 12:[address] Patient Name: SHALONDA GOODWIN Encounter No: [id number] : 1945 Primary Insurance: [facility] [employer] Anticipated DC Date: 12-25-2018 Planned Disposition: [facility] Facility External Planned Provider: [facility], MEDICARE REHAB BED DCP follow-up note: CM RECEIVED CALL FROM PRAVEEN RENNER/JEANNINE, , WHO INFORMED CM THAT PT NEEDS REHAB AND HAS FELL AT HOME DUE TO WEAKNESS. HE LIVES ALONE AND HOME HEALTH IS NOT ENOUGH AT THIS TIME. KATJA UNDERSTANDS THAT PT WILL HAVE TO AGREE TO GO TO ANY REHAB. CM MET WITH PT IN ROOM, REVIEWED THERAPY NOTES NOTING PT'S RECENT HOSPITAL STAY NOT LONG AGO WITH NEW FALL AT HOME. CM SUGGESTED REHAB TO PT. CM DISCUSSED AVAILABILITY OF REHAB, PROVIDERS AND LOCATIONS, PROVIDED PT WITH LISTING OF LOCAL ASSISTED FACILITIES. PT REQUESTED [facility] IT IS CLOSE TO HIS HOME, HE AGREES TO GO FOR A WEEK OR SO TO SEE HOW IT GOES. CHOICE SIGNED. IMPORTANT MESSAGE FROM MEDICARE PROVIDED AND EXPLAINED. CM FAXED REHAB REFERRAL INFORMATION TO [facility] AT [phone]. CM CALLED MILKA AT [facility] AT [phone], WHO RECEIVED REFERRAL AND WILL BEGIN WORKING ON PRE AUTHORIZATION FROM INSURANCE [email or web address]. CM WAITING OCCUPATIONAL THERAPY EVALUATION AND [facility] RECEIVED. CM WAITING ON INSURANCE AUTHORIZATION FOR REHAB SERVICES. Rayo Floyd, CASE MANAGEMENT DCP- Discharge Planning Updated by [email or web address]: Peyton Ramos on 12/16/18 4:[address] DC PLAN: Return home alone with resumption [facility] Home Health. ANTICIPATED DC NEEDS: Resumption of [facility] Home Health CM met with patient to complete initial dc planning assessment. CM educated patient on the CM role and verbal consent given by patient to complete assessment. CM verified patient's address, phone number, and emergency contact phone numbers. Patient lives at home alone. Patient currently has [facility] Home Health Services and wishes to resume at discharge. LIAM form signed by patient for resumption of [facility] Home Health. Signed form placed in chart and signed form given to patient. At discharge patient plans to return home and feels this is a safe discharge. Patient denied further known discharge needs at this time. Transportation provider at discharge will be his praveen Rashid @ [phone] . CM will continue to follow and will assist as needed with dc plans/needs. Peyton Ramos RN, [facility] DCPIA - Discharge Planning Initial Assessment Updated by [email or web address]: Rayo Floyd on 12/24/18 1:06 pm * Is the patient Alert and Oriented? Yes * How many steps to enter\exit or inside your home? elevator * PCP Dr. Page * Pharmacy [facility] * Preadmission Environment Home Alone * ADLs Independent * Equipment Cane Rolling Walker * List name and contact numbers for known caregivers / representatives who currently or will assist patient after discharge: Raymond Moreno [facility] [phone] Teddy Barnett [facility] [phone] PRAVEEN RENNER, * Community resources currently utilized Home Health * Please name any agencies selected above. [facility] Home Health - LIAM signed in the ER. * Additional services required to return to the preadmission environment? No * Can the patient safely return to the preadmission environment? Yes * Has this patient been hospitalized within the prior 30 days at any hospital? Yes Coverage Notice Reviewer: [id number] - Peyton Ramos Notice Issued Date-Time: 12/16/2018 17:45 Notice Type: Patient Choice Letter Notice Delivered To: Patient Relationship to Patient: Grain Manager Name: Delivery Method: HAND - Hand Delivered Nasreen Days: Prior Verbal Notification: Recipient Understood Notice: Recipient Signature: Med Rec Note Co-signed by Attending: Coverage Notice Comment: LIAM signed for resumption of [facility] Home Health. Reviewer: [email or web address] John Floyd Notice Issued Date-Time: 12/24/2018 9:10 Notice Type: Patient Choice Letter Notice Delivered To: Patient Relationship to Patient: Grain Manager Name: Delivery Method: HAND - Hand Delivered Nasreen Days: Prior Verbal Notification: Recipient Understood Notice: Yes Recipient Signature: Yes Med Rec Note Co-signed by Attending: Coverage Notice Comment: ASHUTOSH GUEVARA Reviewer: [email or web address] John Floyd Notice Issued Date-Time: 12/24/2018 9:10 Notice Type: IM Discharge Notice Notice Delivered To: Patient Relationship to Patient: Grain Manager Name: Delivery Method: HAND - Hand Delivered Nasreen Days: Prior Verbal Notification: Recipient Understood Notice: Yes Recipient Signature: Yes Med Rec Note Co-signed by Attending: Coverage Notice Comment: Last DP export: 12/24/18 12:07 Patient Name: SHALONDA GOODWIN Page [id number] at 1322 All edits/amendments must be made on the electronic document DICTATION DATE: 12/24/18 1322 MIDDLEWARE SYSTEMS ARCHITECT: MACIEL 12/24/18 1322 RPT#: [id number] DC DATE: STATUS: ADM IN [facility] [address] [place] [address] END OF REPORT
--- NOTE | 2018-12-24 14:11 | NUR ---
RAINES CATHETER REMOVED WITH CATHETER TIP INTACT. REMOVED 10CC OUT OF BALLOON. PT DENIES ANY NEEDS AT THIS TIME. FIXING TO WALK WITH PHYSICAL THERAPY. CALL LIGHT IN REACH, NAD NOTED, WILL CONTINUE TO MONITOR.
[2018-12-24] MEDS ORDERED: FUROSEMIDE20 MG PO (16:23)
[2018-12-24] MEDS ORDERED: MIRALAX17 GM PO (16:23)
[2018-12-24 16:50] VITALS: BP 149/63
--- NOTE | 2018-12-24 17:18 | MORECARE ---
CASE MANAGEMENT DISCHARGE SUMMARY PATIENT: SHALONDA GOODWIN UNIT: [id number] ADM DATE: 12/16/18 AGE: 73 : 43 SEX: M ROOM/BED: D.2108 AUTHOR: HUGH,DOC PHYSICIAN: REFERRING PHYSICIAN: CARRIE PAGE MD DATE OF SERVICE: 12/24/18 Discharge Plan Patient Name: SHALONDA GOODWIN Facility: [facility]:[place] : 1945 Planned Disposition: [facility] Facility Anticipated Discharge Date: 12/25/18 Discharge Date: Expected LOS: 9 Initial Reviewer: [email or web address] Initial Review Date: 12/16/2018 Generated: 12/24/18 6:18 pm Comments DCP- Discharge Planning Updated by [email or web address]: Rayo Floyd on 12/24/18 4:[address] Patient Name: SHALONDA GOODWIN Encounter No: [id number] : 1945 Primary Insurance: [facility] MEDICARE SOLUTIONS Anticipated DC Date: 12-25-2018 Planned Disposition: Chcf Facility External Planned Provider: CM RECEIVED CALL FROM GALA OF [facility], THEY WILL ACCEPT PT FOR REHAB. RN [facility] CALLED AND SPOKE TO DR. PAGE WHO WILL DISCHARGE PT AFTER HIS CLINIC THIS EVENING. CM NOTIFED PT WHO IS IN AGREEMENT WITH REHAB AT [facility]. CM NOTIFED PRAVEEN RENNER/JEANNINE, , WHO IS IN AGREEMENT WITH REHAB AT [facility]. CM SPOKE TO GALA WHO INFORMED CM THAT THEY WILL BELL TIER PT IN THE MORNING AT 0900 SINCE THE DISCHARGE WILL BE LATE THIS EVENING. CM NOTIFIED DR. GONZALES. CM RECEIVED CALL FROM STACY OF 'S INSURANCE [employer] INFORMING OF APPROVAL FOR SKILLED REHAB AT [facility]. ERP BUSINESS ANALYST NURSE NOTIFIED. FOR DISCHARGE ON 12-24-18, FAX DISCHARGE INFORMATION TO [facility] AT [phone]. NURSE REPORT TO BE CALLED TO [facility] AT [phone]. [facility] TO BELL TIER PT TOMORROW AT 0900AM. THEY WILL BRING WHEELCHAIR AND OXYGEN. Rayo Floyd, CASE MANAGEMENT DCP- Discharge Planning Updated by [email or web address]: Rayo Floyd on 12/24/18 12:[address] Patient Name: SHALONDA GOODWIN Encounter No: [id number] : 1945 Primary Insurance: [facility] MEDIC[employer] SOLUTIONS Anticipated DC Date: 12-25-2018 Planned Disposition: [facility] Facility External Planned Provider: [facility], MEDICARE REHAB BED DCP follow-up note: CM RECEIVED CALL FROM PRAVEEN RENNER/JEANNINE, , WHO INFORMED CM THAT PT NEEDS REHAB AND HAS FELL AT HOME DUE TO WEAKNESS. HE LIVES ALONE AND HOME HEALTH IS NOT ENOUGH AT THIS TIME. KATJA UNDERSTANDS THAT PT WILL HAVE TO AGREE TO GO TO ANY REHAB. CM MET WITH PT IN ROOM, REVIEWED THERAPY NOTES NOTING PT'S RECENT HOSPITAL STAY NOT LONG AGO WITH NEW FALL AT HOME. CM SUGGESTED REHAB TO PT. CM DISCUSSED AVAILABILITY OF REHAB, PROVIDERS AND LOCATIONS, PROVIDED PT WITH LISTING OF LOCAL LONG-TERM FACILITIES. [facility] [place] [facility] IS CLOSE [facility] HIS HOME, HE AGREES TO GO FOR A WEEK OR SO TO SEE HOW IT GOES. CHOICE SIGNED. IMPORTANT MESSAGE FROM MEDICARE PROVIDED AND EXPLAINED. CM FAXED REHAB [facility]ERR[facility] INFORMATION [facility] AT [phone]. CM CALLED MILKA AT [facility] [place] AT [phone], WHO RECEIVED REFERRAL AND WILL BEGIN WORKING ON PRE AUTHORIZATION FROM [employer]. CM WAITING OCCUPATIONAL THERAPY EVALUATION AND WILL FAX TO [email or web address] WHEN RECEIVED. CM WAITING ON INSURANCE AUTHORIZATION FOR REHAB SERVICES. Rayo Floyd, CASE MANAGEMENT DCP- Discharge Planning Updated by [email or web address]: Peyton Ramos on 12/16/18 4:[address] DC PLAN: Return home alone with resumption [facility]. ANTICIPATED DC NEEDS: Resumption of [facility] CM met with patient to complete initial dc planning assessment. CM educated patient on the CM role and verbal consent given by patient to complete assessment. CM verified patient's address, phone number, and emergency contact phone numbers. Patient lives at home alone. Patient currently has [facility] Services and wishes to resume at discharge. LIAM form signed by patient for resumption of [facility]. Signed form placed in chart and signed form given to patient. At discharge patient plans to return home and feels this is a safe discharge. Patient denied further known discharge needs at this time. Transportation provider at discharge will be his praveen Rashid @ [phone] . CM will continue to follow and will assist as needed with dc plans/needs. Peyton Ramos RN, [facility] DCPIA - Discharge Planning Initial Assessment Updated by [email or web address]: Rayo Floyd on 12/24/18 1:06 pm * Is the patient Alert and Oriented? Yes * How many steps to enter\exit or inside your home? elevator * PCP Dr. Page * Pharmacy [facility] * Preadmission Environment Home Alone * ADLs Independent * Equipment Cane Rolling Walker * List name and contact numbers for known caregivers / representatives who currently or will assist patient after discharge: Raymond Moreno [facility] [phone] Teddy Barnett [facility] [phone] PRAVEEN RENNER, * Community resources currently utilized Home Health * Please name any agencies selected above. [facility] Home Health - LIAM signed in the ER. * Additional services required to return to the preadmission environment? No * Can the patient safely return to the preadmission environment? Yes * Has this patient been hospitalized within the prior 30 days at any hospital? Yes Coverage Notice Reviewer: [id number] John Ramos Notice Issued Date-Time: 12/16/2018 17:45 Notice Type: Patient Choice Letter Notice Delivered To: Patient Relationship to Patient: Engraver Copperplate Name: Delivery Method: HAND - Hand Delivered Nasreen Days: Prior Verbal Notification: Recipient Understood Notice: Recipient Signature: Med Rec Note Co-signed by Attending: Coverage Notice Comment: LIAM signed for resumption of [facility] Home Health. Reviewer: [id number] John Floyd Notice Issued Date-Time: 12/24/2018 9:10 Notice Type: Patient Choice Letter Notice Delivered To: Patient Relationship to Patient: Engraver Copperplate Name: Delivery Method: HAND - Hand Delivered Nasreen Days: Prior Verbal Notification: Recipient Understood Notice: Yes Recipient Signature: Yes Med Rec Note Co-signed by Attending: Coverage Notice Comment: ASHUTOSH GUEVARA Reviewer: [id number] John Floyd Notice Issued Date-Time: 12/24/2018 9:10 Notice Type: IM Discharge Notice Notice Delivered To: Patient Relationship to Patient: Engraver Copperplate Name: Delivery Method: HAND - Hand Delivered Nasreen Days: Prior Verbal Notification: Recipient Understood Notice: Yes Recipient Signature: Yes Med Rec Note Co-signed by Attending: Coverage Notice Comment: Last DP export: 12/24/18 12:22 Patient Name: SHALONDA GOODWIN Page [id number] at 1718 All edits/amendments must be made on the electronic document DICTATION DATE: 12/24/181717 MULTI OPERATION MACHINE OPERATOR: MACIEL 12/24/181717 RPT#: [id number] DC DATE: STATUS: ADM IN [facility] [address] [place] [address] END OF REPORT
--- NOTE | 2018-12-24 19:28 | NUR ---
REPORT RECEIVED, WILL CONTINUE POC. PATIENT IS AAO, UP WITH ASSIST. LYING IN BED WATCHING TV. NO S/S OF DISTRESS NOTED, RR EVEN AND UNLABORED ON 5L HF. PATIENT DENIES NEEDS AT THIS TIME. CL IN REACH, BED LOCKED AND LOWERED. JEFERSON ALARM ON. WILL CTM.
[2018-12-24 20:00] VITALS: BP 131/70
[2018-12-25] VITALS: BP 154/76
--- NOTE | 2018-12-25 00:03 | NUR ---
PATIENT REFUSING TO WEAR BIPAP. STATES, "I'M BREATHING JUST FINE".
--- NOTE | 2018-12-25 02:58 | NUR ---
I have reviewed this patient and I concur with the Shift Assessment completed by the Licensed Practical Nurse today this shift.
[2018-12-25 04:00] VITALS: BP 132/69
--- NOTE | 2018-12-25 05:49 | NUR ---
SHOWER GIVEN, GOWN AND LINENS CHANGED.
[2018-12-25 06:03] LABS: BASOPHILS 0.3 % (0-2); EOSINOPHILS 6.3 % (0-7); HEMATOCRIT 38.2 % (42.0-54.0); HEMOGLOBIN 12.1 g/dL (13.5-17.5); IMMATURE GRANULOCYTES 0.6 % (0-5); LYMPHOCYTES 23.4 % (15-50); MCH 28.3 pg (26.0-34.0); MCHC 31.7 g/dL (31.0-37.0); MCV 89.5 fL (80.0-100.0); MEAN PLATELET VOLUME 9.8 fL (7.4-10.4); MONOCYTES 9.8 % (2-11); NEUTROPHILS 59.6 % (40-80); PLATELET COUNT 344 10x3/uL (130-400); RBC 4.27 10x6/uL (4.20-6.10); RDW 15.3 % (11.5-14.5); WBC 9.6 10x3/uL (4.8-10.8)
[2018-12-25 06:24] LABS: CALC OSMOLALITY 276 mosm/kg (275-300); CALCIUM 9.6 mg/dL (8.5-10.1); CARBON DIOXIDE 32.4 mmol/L (21.0-32.0); CHLORIDE - SERUM 98 mmol/L (98-107); GLUCOSE 114 mg/dL (74-106); POTASSIUM - SERUM 4.7 mmol/L (3.5-5.1); SODIUM 135 mmol/L (136-145); UREA NITROGEN 28 mg/dL (7-18); eGFR NON AFRICAN AMERICAN 78 mL/min (90-120)
--- NOTE | 2018-12-25 08:13 | NUR ---
NO FLU SHOT GIVEN UPON ADMISSION PATIENT STATES TO HAVING ONE.
--- NOTE | 2018-12-25 08:19 | MORECARE ---
CASE MANAGEMENT DISCHARGE SUMMARY PATIENT: SHALONDA GOODWIN UNIT: [id number] ADM DATE: 12/16/18 AGE: 73 : 44 SEX: M ROOM/BED: D.2106 AUTHOR: HUGH,DOC PHYSICIAN: REFERRING PHYSICIAN: CARRIE PAGE MD DATE OF SERVICE: 12/25/18 Discharge Plan Patient Name: SHALONDA GOODWIN Facility: [facility]:[place] : 1945 Planned Disposition: Long Term Facility Anticipated Discharge Date: 12/25/18 Discharge Date: Expected LOS: 9 Initial Reviewer: [email or web address] Initial Review Date: 12/16/2018 Generated: 12/25/18 9:19 am Comments DCP- Discharge Planning Updated by [id number]: Rayo Floyd on 12/25/18 7:[address] Patient Name: SHALONDA GOODWIN Encounter No: [id number] : 1945 Primary Insurance: [facility] MEDICARE SOLUTIONS Anticipated DC Date: 12-25-2018 Planned Disposition: Long Term Facility External Planned Provider: [facility], MEDICARE REHAB BED DCP follow-up note: CM RECEIVED DISCHARGE ORDER, FAXED DISCHARGE INFORMATION TO [facility] AT [phone]. NURSE REPORT TO BE CALLED TO [facility] AT [phone]. [facility] TO DIETARY SUPERVISOR PT TOMORROW AT 0900AM. THEY WILL BRING WHEELCHAIR AND OXYGEN. ENRIQUE Ybarra DCP- Discharge Planning Updated by [id number]: Rayo Floyd on 12/24/18 4:[address] Patient Name: SHALONDA GOODWIN Encounter No: [id number] : 1945 Primary Insurance: [facility] MEDICARE SOLUTIONS Anticipated DC Date: 12-25-2018 Planned Disposition: Long Term Facility External Planned Provider: CM RECEIVED CALL FROM GALA OF [facility], THEY WILL ACCEPT PT FOR REHAB. RN [facility] CALLED AND SPOKE TO DR. PAGE WHO WILL DISCHARGE PT AFTER HIS CLINIC THIS EVENING. CM NOTIFED PT WHO IS IN AGREEMENT WITH REHAB AT [facility]. CM NOTIFED PRAVEEN RENNER/JEANNINE, , WHO IS IN AGREEMENT WITH REHAB AT [facility]. CM SPOKE TO GALA WHO INFORMED CM THAT THEY WILL DIETARY SUPERVISOR PT IN THE MORNING AT 0900 SINCE THE DISCHARGE WILL BE LATE THIS EVENING. CM NOTIFIED DR. GONZALES. CM RECEIVED CALL FROM STACY OF PT'S INSURANCE COMPANY INFORMING OF APPROVAL FOR SKILLED REHAB AT [facility]. PRESSURE SEALER AND TESTER NURSE NOTIFIED. FOR DISCHARGE ON 12-24-18, FAX DISCHARGE INFORMATION TO [facility] AT [phone]. NURSE REPORT TO BE CALLED TO [facility] AT [phone]. [facility] TO DIETARY SUPERVISOR PT TOMORROW AT 0900AM. THEY WILL BRING WHEELCHAIR AND OXYGEN. Rayo Floyd, CASE MANAGEMENT DCP- Discharge Planning Updated by [id number]: Rayo Floyd on 12/24/18 12:[address] Patient Name: SHALONDA GOODWIN Encounter No: [id number] : 1945 Primary Insurance: [facility] MEDICARE SOLUTIONS Anticipated DC Date: 12-25-2018 Planned Disposition: Long Term Facility External Planned Provider: [facility] G[facility] MEDICARE REHAB BED DCP follow-up note: CM RECEIVED CALL FROM PRAVEEN RENNER/JEANNINE, , WHO INFORMED CM THAT PT NEEDS REHAB AND HAS FELL AT HOME DUE TO WEAKNESS. HE LIVES ALONE AND HOME HEALTH IS NOT ENOUGH AT THIS TIME. KATJA UNDERSTANDS THAT PT WILL HAVE TO AGREE TO GO TO ANY REHAB. CM MET WITH PT IN ROOM, REVIEWED THERAPY NOTES NOTING PT'S RECENT HOSPITAL STAY NOT LONG AGO WITH NEW FALL AT HOME. CM SUGGESTED REHAB TO PT. CM DISCUSSED AVAILABILITY OF REHAB, PROVIDERS AND LOCATIONS, PROVIDED PT WITH LISTING OF LOCAL SNF FACILITIES. PT REQUESTED [facility] IT IS CLOSE TO HIS HOME, HE AGREES TO GO FOR A WEEK OR SO TO SEE HOW IT GOES. CHOICE SIGNED. IMPORTANT MESSAGE FROM MEDICARE PROVIDED AND EXPLAINED. CM FAXED REHAB REFERRAL INFORMATION TO [facility] AT [phone]. CM CALLED MILKA AT [facility] AT [phone], WHO RECEIVED REFERRAL AND WILL BEGIN WORKING ON PRE AUTHORIZATION FROM INSURANCE [employer]. CM WAITING OCCUPATIONAL THERAPY EVALUATION AND WILL FAX TO [facility] WHEN RECEIVED. CM WAITING ON INSURANCE AUTHORIZATION FOR REHAB SERVICES. Rayo Floyd CASE MANAGEMENT DCP- Discharge Planning Updated by [id number]: Peyton Ramos on 12/16/18 4:[address] DC PLAN: Return home alone with resumption [facility]. ANTICIPATED DC NEEDS: Resumption of [facility] CM met with patient to complete initial dc planning assessment. CM educated patient on the CM role and verbal consent given by patient to complete assessment. CM verified patient's address, phone number, and emergency contact phone numbers. Patient lives at home alone. Patient currently has [facility] Home Health Services and wishes to resume at discharge. LIAM form signed by patient for resumption of [facility] Home Health. Signed form placed in chart and signed form given to patient. At discharge patient plans to return home and feels this is a safe discharge. Patient denied further known discharge needs at this time. Transportation provider at discharge will be his praveen Rashid @ [phone] . CM will continue to follow and will assist as needed with dc plans/needs. Peyton Ramos RN, [facility] DCPIA - Discharge Planning Initial Assessment Updated by [id number]: Rayo Floyd on 12/24/18 1:06 pm * Is the patient Alert and Oriented? Yes * How many steps to enter\exit or inside your home? elevator * PCP Dr. Page * Pharmacy [facility] * Preadmission Environment Home Alone * ADLs Independent * Equipment Cane Rolling Walker * List name and contact numbers for known caregivers / representatives who currently or will assist patient after discharge: Raymond Deeeffie [facility] [phone] Teddyvini Barnett [facility] [phone] PRAVEEN RENNER, * Community resources currently utilized Home Health * Please name any agencies selected above. [facility] - LIAM signed in the ER. * Additional services required to return to the preadmission environment? No * Can the patient safely return to the preadmission environment? Yes * Has this patient been hospitalized within the prior 30 days at any hospital? Yes External Providers External Provider: [facility] and [facility] Next Contact Date: 12/24/2018 Service Request Date: Service Type: Resolution: Reviewer: Comments: Coverage Notice Reviewer: [id number] - Peyton Ramos Notice Issued Date-Time: 12/16/2018 17:45 Notice Type: Patient Choice Letter Notice Delivered To: Patient Relationship to Patient: Mixer Operator Name: Delivery Method: HAND - Hand Delivered Nasreen Days: Prior Verbal Notification: Recipient Understood Notice: Recipient Signature: Med Rec Note Co-signed by Attending: Coverage Notice Comment: LIAM signed for resumption of [facility] Home Health. Reviewer: [id number] John lFoyd Notice Issued Date-Time: 12/24/2018 9:10 Notice Type: Patient Choice Letter Notice Delivered To: Patient Relationship to Patient: Mixer Operator Name: Delivery Method: HAND - Hand Delivered Nasreen Days: Prior Verbal Notification: Recipient Understood Notice: Yes Recipient Signature: Yes Med Rec Note Co-signed by Attending: Coverage Notice Comment: ASHUTOSH GUEVARA Reviewer: [id number] John Floyd Notice Issued Date-Time: 12/24/2018 9:10 Notice Type: IM Discharge Notice Notice Delivered To: Patient Relationship to Patient: Mixer Operator Name: Delivery Method: HAND - Hand Delivered Nasreen Days: Prior Verbal Notification: Recipient Understood Notice: Yes Recipient Signature: Yes Med Rec Note Co-signed by Attending: Coverage Notice Comment: Last DP export: 12/24/18 4:18 Patient Name: SHALONDA GOODWIN Page [id number] at 0819 All edits/amendments must be made on the electronic document DICTATION DATE: 12/25/18818 MANAGER EPIC: MACIEL 12/25/18818 RPT#: [id number] DC DATE: STATUS: ADM IN [facility] [address] [place] [address] END OF REPORT
--- NOTE | 2018-12-25 08:49 | NUR ---
PROVIDED VERBAL AND WRITTEN DISCHARGE TEACHING TO PT WHO VERBALIZED UNDERSTANDING REGARING TEACHING. D/C LT AC IV WITH CATHETER TIP INTACT. REPORT CALLED TO ASHUTOSH GUEVARA. PT LEFT UNIT VIA WHEELCHAIR, WITH ALL BELONGINGS, ACCOMPANIED BY NAVNEET MARSHALL NOTED.
== END 2018-12-25 08:51 | DRG 193 ==
LOC: D.ER 12:39 → D.M2 15:18 → D.CVICU 15:18 → D.MS 15:18 → D.CVICU 17:51 → D.M2 12-17 16:47
PROVIDERS: Emergency Medicine; Specialist; ADMIT Family Medicine; ATTEND Family Medicine
PROC: 0BBD3ZX Excision of Right Middle Lung Lobe, Percutaneous Approach, Diagnostic (ICD-10-PCS; principal; 2018-12-18 11:01)
DX: J18.1 Lobar pneumonia, unspecified organism (principal); J96.22 Acute and chronic respiratory failure with hypercapnia; J96.21 Acute and chronic respiratory failure with hypoxia; J44.0 Chronic obstructive pulmonary disease with (acute) lower respiratory infection; F03.90 Unspecified dementia, unspecified severity, without behavioral disturbance, psychotic disturbance, mood disturbance, and anxiety; I10 Essential (primary) hypertension; S00.12XA Contusion of left eyelid and periocular area, initial encounter; W01.0XXA Fall on same level from slipping, tripping and stumbling without subsequent striking against object, initial encounter; R91.8 Other nonspecific abnormal finding of lung field; D64.9 Anemia, unspecified; N40.0 Benign prostatic hyperplasia without lower urinary tract symptoms; Z95.2 Presence of prosthetic heart valve; J40 Bronchitis, not specified as acute or chronic

== ENCOUNTER 2019-02-15 20:23 | Inpatient (IN) | payer MEDICARE, MEDICAID ==
[~2019-02-15] VITALS: Ht 167.6 cm; Wt 55.8 kg
[~2019-02-15 20:23] MED LIST changes: +FUROSEMIDE20 MG PO; +MIRALAX17 GM PO
[2019-02-15 21:00] VITALS: BP 132/64
[2019-02-15 21:00] LABS: BASOPHILS 0.1 % (0-2); EOSINOPHILS 0.8 % (0-7); HEMATOCRIT 30.1 % (42.0-54.0); HEMOGLOBIN 9.1 g/dL (13.5-17.5); IMMATURE GRANULOCYTES 0.3 % (0-5); LYMPHOCYTES 9.9 % (15-50); MCH 25.9 pg (26.0-34.0); MCHC 30.2 g/dL (31.0-37.0); MCV 85.8 fL (80.0-100.0); MEAN PLATELET VOLUME 8.8 fL (7.4-10.4); MONOCYTES 6.1 % (2-11); NEUTROPHILS 82.8 % (40-80); PLATELET COUNT 198 10x3/uL (130-400); RBC 3.51 10x6/uL (4.20-6.10); RDW 15.9 % (11.5-14.5); WBC 14.2 10x3/uL (4.8-10.8)
[2019-02-15 21:14] LABS: APTT 37.3 SECONDS (22.8-39.4); INR 1.26 (0.85-1.17); PROTIME 15.2 SECONDS (11.6-15.0)
[2019-02-15 21:15] LABS: CALC OSMOLALITY 293 mosm/kg (275-300); CALCIUM 8.5 mg/dL (8.5-10.1); CARBON DIOXIDE 30.3 mmol/L (21.0-32.0); CHLORIDE - SERUM 110 mmol/L (98-107); CREATININE - SERUM 1.2 mg/dL (0.6-1.3); GLUCOSE 128 mg/dL (74-106); POTASSIUM - SERUM 4.3 mmol/L (3.5-5.1); SODIUM 144 mmol/L (136-145); UREA NITROGEN 27 mg/dL (7-18); eGFR NON AFRICAN AMERICAN 63 mL/min (90-120)
[2019-02-15 21:30] VITALS: BP 113/63
[2019-02-15 21:36] LABS: ALKALINE PHOSPHATASE 112 U/L (46-116); ALT (SGPT) 16 U/L (10-68); BILIRUBIN - TOTAL 0.18 mg/dL (0.2-1.3); CREATINE KINASE 22 UL (21-232)
[2019-02-15 21:39] LABS: CKMB 0.1 U/L (0.0-3.6); TROPONIN-I 0.063 ng/mL (0.000-0.060)
--- NOTE | 2019-02-15 21:51 | NUR ---
LR RATE CHANGED TO 70ML/HR PER MALA BRIGGS
--- NOTE | 2019-02-15 22:30 | NUR ---
PT TO ROOM 2103 VIA STRETCHER ACCOMPANIED BY HOSPITAL STAFF.
[2019-02-15 22:43] VITALS: BP 142/66; BMI 19.9
[2019-02-16 04:00] VITALS: BP 123/62
[2019-02-16 06:54] LABS: BASOPHILS 0.1 % (0-2); EOSINOPHILS 1.9 % (0-7); HEMATOCRIT 29.3 % (42.0-54.0); HEMOGLOBIN 8.9 g/dL (13.5-17.5); IMMATURE GRANULOCYTES 0.4 % (0-5); LYMPHOCYTES 16.4 % (15-50); MCH 26.3 pg (26.0-34.0); MCHC 30.4 g/dL (31.0-37.0); MCV 86.4 fL (80.0-100.0); MEAN PLATELET VOLUME 8.5 fL (7.4-10.4); MONOCYTES 7.7 % (2-11); NEUTROPHILS 73.5 % (40-80); PLATELET COUNT 164 10x3/uL (130-400); RBC 3.39 10x6/uL (4.20-6.10); WBC 13.8 10x3/uL (4.8-10.8)
--- NOTE | 2019-02-16 07:00 | NUR ---
RECEIVED REPORT. ASSUMED CARE OF PATIENT. CALL LIGHT JARED REACH. NO DISTRESS. PATIENT LYING IN BED WITH EYES OPEN. RESP EVEN AND UNLABORED. PATIENT STATES THIS INTERMISSION COORDINATOR HAS CARED FOR HIM BEFORE. NO DISTRESS.
[2019-02-16 07:06] LABS: CALC OSMOLALITY 284 mosm/kg (275-300); CALCIUM 8.2 mg/dL (8.5-10.1); CARBON DIOXIDE 27.7 mmol/L (21.0-32.0); CHLORIDE - SERUM 108 mmol/L (98-107); CREATININE - SERUM 0.9 mg/dL (0.6-1.3); GLUCOSE 114 mg/dL (74-106); SODIUM 141 mmol/L (136-145); UREA NITROGEN 22 mg/dL (7-18); eGFR NON AFRICAN AMERICAN 88 mL/min (90-120)
[2019-02-16 09:00] VITALS: BP 116/57
--- NOTE | 2019-02-16 09:34 | NUR ---
UA COLLECTED AT THIS TIME.
[2019-02-16 09:48] LABS: APPEARANCE CLEAR (CLEAR); BILIRUBIN NEGATIVE (NEGATIVE); COLOR YELLOW (YELLOW); GLUCOSE NEGATIVE (NEGATIVE); KETONE NEGATIVE (NEGATIVE); NITRITE NEGATIVE (NEGATIVE); PROTEIN NEGATIVE (NEGATIVE); UROBILINOGEN NORMAL (NORMAL)
--- NOTE | 2019-02-16 10:43 | NUR ---
FOOD REQUEST SENT TO DIETARY PER [place] CONVERSATION WITH PATIENT DURING CUSTOMER SERVICE ROUNDS.
--- NOTE | 2019-02-16 11:12 | NUR ---
22 GAUGE IV PLACED TO RIGHT FOREARM X 1 STICK. TOLERATED IV PLACEMENT WELL. IV SITE IS TAPED, DATED AND SECURED. PATIENT IS LEFT ARM DOMINANT AND IV IN LEFT AC CONSTANTLY OCCLUDED SO 2ND IV STARTED. IV FLUIDS NOW INFUSING TO RIGHT FOREARM AND IV SITE TO LEFT AC IS SALINE LOCKED.
--- NOTE | 2019-02-16 11:58 | NUR ---
ASSISTED PATIENT OOB TO RESTROOM AND BACK TO BED. PATIENT HAS FAMILY AT BEDSIDE AT THIS TIME. NO DISTRESS. CALL LIGHT WITHIN REACH.
--- NOTE | 2019-02-16 12:59 | NUR ---
[facility] AND TO SEE IF HE WAS SEPTIC ON ADMISSION. PATIENT IS DOING WELL AT THIS TIME.
--- NOTE | 2019-02-16 12:59 | HP ---
PATIENT: SHALONDA GOODWIN MEDICAL RECORD: [id number] ACCOUNT: [id number] LOCATION:[address] : [birth year] ADMISSION DATE: 02/15/19 PCP: CARRIE PAGE HISTORY AND PHYSICAL EXAMINATION DATE OF ADMISSION: 02/15/2019 CHIEF COMPLAINT: Fever, pneumonia. HISTORY OF PRESENT ILLNESS: A 73-year-old -[place], who was brought in from [facility] with fever and weakness. Family reports that he has had recent pneumonia a time or 2. Chest x-ray was read as a right-sided pneumonia and he had a temperature of 101.8, blood pressure of 95/42 in the ER. He is admitted. PAST MEDICAL HISTORY: Hypertension; coronary artery disease; osteoarthritis; dementia; BPH; cataracts; and right lung mass, has been biopsied a couple of times, no cancer found. PAST SURGICAL HISTORY: Coronary artery bypass graft. ALLERGIES: PENICILLIN. HOME MEDICATIONS: Lasix 20 mg a day, MiraLax daily, Flomax 0.4 mg once a day, Proscar 5 mg once a day, and Aricept 10 mg once a day. FAMILY HISTORY: Significant for hypertension. SOCIAL HISTORY: He is and retired. Right now at [facility]. HABITS: No tobacco, alcohol or drugs currently. REVIEW OF SYSTEMS: Obtained from the patient, who has dementia; therefore, not really obtainable at this time. PHYSICAL EXAMINATION: VITAL SIGNS: Temperature in the ER 101.8, currently is down to 99.0; pulse 70; respirations 16; blood pressure 142/66. He is on oxygen. GENERAL: He is a pleasant gentleman who does not appear in distress. He is pleasantly confused. HEENT: Grossly within normal limits. NECK: Supple. No JVD or bruit. HEART: Regular rate and rhythm. LUNGS: Diminished breath sounds in the right base. ABDOMEN: Soft. EXTREMITIES: No edema. LABORATORY DATA: CBC showed white count of 14,200, hemoglobin 9.1, hematocrit 30.1. Basic metabolic panel is pretty stable. Liver functions are okay. INR 1.26. Troponin is 0.063. DIAGNOSTIC DATA: Chest x-ray suggests right lower lobe pneumonia. ASSESSMENT: Right lower lobe pneumonia. HISTORY AND PHYSICAL [id number] SHALONDA GOODWIN PLAN: Blood cultures, urinalysis is pending and will start antibiotics and respiratory care. Other tests or procedures as warranted. TRANSINT:[id number] Voice Confirmation ID: [id number] DOCUMENT ID: [id number] THONY NAJERA MD at 1259 CC: [id number] DICTATION DATE: 02/16/19 1117 COMMISSIONED SALES ASSOCIATE: 02/16/19 1236 ADM IN [facility] [address] [place] [address]
[2019-02-16 13:04] VITALS: BP 120/59
--- NOTE | 2019-02-16 15:00 | NUR ---
PATIENT RESTING IN BED, INCONTINENT CARES PROVIDED. NO DISTRESS. CALL LIGHT WITHIN REACH.
--- NOTE | 2019-02-16 15:05 | NUR ---
AT BEDSIDE, NEW ORDERS FOR VANCOMYACIN OBTAINED TO TREAT GRAM POSITIVE COCCI IN CHAINS - "STREP"
[2019-02-16 17:42] VITALS: BP 143/67
--- NOTE | 2019-02-16 19:23 | NUR ---
RECEIEVED LAYING IN BED WITH EYES CLOSES. EASILY AROUSES. O2@ 2 LITERS PER N/C. IV TO LEFT AC SL.. ALSO, IV TO RIGHT FA WITH NS AT 75CC/HR. BED ALARM IN PLACE. LUNG SOUNDS CRACKLES BILATERALLY. DENIES ANY NEEDS OR PAIN.
[2019-02-16 20:46] VITALS: BP 133/70
[2019-02-17] VITALS: BP 145/69
[2019-02-17 04:30] VITALS: BP 144/71
[2019-02-17 05:36] LABS: BASOPHILS 0.1 % (0-2); EOSINOPHILS 2.1 % (0-7); HEMATOCRIT 29.1 % (42.0-54.0); HEMOGLOBIN 8.9 g/dL (13.5-17.5); IMMATURE GRANULOCYTES 0.4 % (0-5); LYMPHOCYTES 18.9 % (15-50); MCH 26.4 pg (26.0-34.0); MCHC 30.6 g/dL (31.0-37.0); MCV 86.4 fL (80.0-100.0); MEAN PLATELET VOLUME 8.5 fL (7.4-10.4); MONOCYTES 7.7 % (2-11); NEUTROPHILS 70.8 % (40-80); PLATELET COUNT 177 10x3/uL (130-400); RBC 3.37 10x6/uL (4.20-6.10); WBC 13.6 10x3/uL (4.8-10.8)
[2019-02-17 06:03] LABS: CALC OSMOLALITY 285 mosm/kg (275-300); CALCIUM 8.3 mg/dL (8.5-10.1); CARBON DIOXIDE 28.8 mmol/L (21.0-32.0); CHLORIDE - SERUM 108 mmol/L (98-107); CREATININE - SERUM 0.8 mg/dL (0.6-1.3); GLUCOSE 101 mg/dL (74-106); POTASSIUM - SERUM 4.1 mmol/L (3.5-5.1); SODIUM 142 mmol/L (136-145); UREA NITROGEN 20 mg/dL (7-18); eGFR NON AFRICAN AMERICAN > 90 mL/min (90-120)
[2019-02-17 08:02] VITALS: BP 121/61
[2019-02-17 11:56] VITALS: BP 131/61
[2019-02-17 13:29] VITALS: Ht 167.6 cm; Wt 55.8 kg
--- NOTE | 2019-02-17 14:44 | NUR ---
I have reviewed this patient and I concur with the Shift Assessment completed by the Licensed Practical Nurse today this shift.
[2019-02-17 17:20] VITALS: BP 147/75
--- NOTE | 2019-02-17 19:24 | NUR ---
RECEIVED UP IN BED WITH EYES OPEN AND TV ON. ALERT AND ORIENTED TO PERSON. O2@ 2 LITERS PER N/C IN PLACE. IV TO RIGHT FA WITH NS AT 75CC/HR. ALSO, HAS IV TO LEFT AC SL.. UP WITH ASSIST TO B/R. INCONTINENT OF B/B. UNABLE TO GET TO B/R AND USUALLY INCONTINENT BEFORE HE ASKED TO USE THE B/R. BED ALARM IN PLACE. DENIEES ANY NEEDS AND NO S/S OF PAIN OBSERVED.
[2019-02-17 20:30] VITALS: BP 142/66
[2019-02-18] VITALS: BP 143/65
[2019-02-18 04:30] VITALS: BP 157/70
[2019-02-18 06:14] LABS: BASOPHILS 0.2 % (0-2); EOSINOPHILS 3.7 % (0-7); HEMATOCRIT 31.7 % (42.0-54.0); HEMOGLOBIN 9.7 g/dL (13.5-17.5); IMMATURE GRANULOCYTES 0.4 % (0-5); LYMPHOCYTES 18.9 % (15-50); MCH 26.2 pg (26.0-34.0); MCHC 30.6 g/dL (31.0-37.0); MCV 85.7 fL (80.0-100.0); MEAN PLATELET VOLUME 8.7 fL (7.4-10.4); MONOCYTES 7.6 % (2-11); NEUTROPHILS 69.2 % (40-80); PLATELET COUNT 177 10x3/uL (130-400); WBC 14.2 10x3/uL (4.8-10.8)
[2019-02-18 06:34] LABS: CALC OSMOLALITY 282 mosm/kg (275-300); CALCIUM 8.4 mg/dL (8.5-10.1); CARBON DIOXIDE 28.4 mmol/L (21.0-32.0); CHLORIDE - SERUM 105 mmol/L (98-107); CREATININE - SERUM 0.8 mg/dL (0.6-1.3); GLUCOSE 103 mg/dL (74-106); POTASSIUM - SERUM 4.1 mmol/L (3.5-5.1); SODIUM 141 mmol/L (136-145); UREA NITROGEN 18 mg/dL (7-18); eGFR NON AFRICAN AMERICAN > 90 mL/min (90-120)
--- NOTE | 2019-02-18 07:33 | NUR ---
PT RESTING, EYES CLOSED. RR EVEN AND UNLABORED. BED ALARM WORKING PROPERLY AND IN PLACE. NO DISTRESS NOTED. 2L NC. BED IN LOWEST POSITION. CALL LIGHT WITHIN REACH. WILL CONTINUE TO MONITOR.
[2019-02-18 10:09] VITALS: BP 142/67
--- NOTE | 2019-02-18 10:19 | NUR ---
I have reviewed this patient and I concur with the Shift Assessment completed by the Licensed Practical Nurse today this shift.
--- NOTE | 2019-02-18 13:00 | NUR ---
PT BED WET, VOID X1. ASSISTED TO BATHROOM AND CLEANED. LINENS CHANGED. PT ASSISTED BACK TO BED. NO FURTHER NEEDS AT THIS TIME. BED IN LOWEST POSITION. CALL LIGHT WITHIN REACH. WILL CONTINUE TO MONITOR.
[2019-02-18 14:12] VITALS: BP 119/65
--- NOTE | 2019-02-18 16:46 | MORECARE ---
CASE MANAGEMENT DISCHARGE SUMMARY PATIENT: SHALONDA GOODWIN UNIT: [id number] ADM DATE: 02/15/19 AGE: 73 : 44 SEX: M ROOM/BED: D.2103 AUTHOR: HUGH,DOC PHYSICIAN: REFERRING PHYSICIAN: CARRIE PAGE MD DATE OF SERVICE: 02/18/19 Discharge Plan Patient Name: SHALONDA GOODWIN Facility: [facility]:[place] : 1945 Planned Disposition: Residential Facility Anticipated Discharge Date: Discharge Date: Expected LOS: Initial Reviewer: [id number] Initial Review Date: 02/18/2019 Generated: 02/18/19 5:45 pm Comments DCP- Discharge Planning Updated by [email or web address]: Rayo Floyd on 02/18/19 3:[address] Patient Name: SHALONDA GOODWIN Admission Status: ER Accout number: [id number] Admission Date: 02-15-2019 : 1945 Admission Diagnosis: Attending: CARRIE PAGE Current LOS: 3 Anticipated DC Date: Planned Disposition: Residential Facility Primary Insurance: [facility] MEDICARE SOLUTIONS PLANNED EXTERNAL PROVIDER: [facility] MEDICARE REHAB BED Discharge Planning Comments: CM MET WITH PT IN ROOM TO DISCUSS DISCHARGE PLANNING AND NEEDS. PT REPORTS HE IS STILL AT [facility] FOR REHAB SERVICES. PT WANTS TO RETURN TO [facility] TO COMPLETE REHAB AT HOSPITAL DISCHARGE, REPORTS ABILITY TO SIT FOR VAN TRANSPORT. CHOICE SIGNED FOR [facility]. CM CALLED [facility], LEFT MESSAGE FOR CM AT [phone], TO CONFIRM REHAB BED; SHE WAS GONE FOR THE DAY. FOR DISCHARGE, FAX DISCHARGE INFORMATION TO [facility] AT [phone]. NURSE REPORT TO BE CALLED TO [facility] AT [phone]. [facility] TO ARRANGE VAN TRANSPORTATION. Course Instructor: Rayo Floyd DCPIA - Discharge Planning Initial Assessment Updated by [id number]: Rayo Floyd on 02/18/19 4:42 pm * Is the patient Alert and Oriented? Yes * How many steps to enter\exit or inside your home? ELEVATOR * PCP DR. PAGE * Pharmacy [facility]. * Preadmission Environment Residential Facility * Facility Name [facility] * ADLs Partial Dependent * Partial ADLs (Assistance needed) Ambulation Bathing Dressing Medication Management Toileting * Equipment Other * Other Equipment ALL MEDICAL EQUIPMENT PROVIDED BY [facility] * List name and contact numbers for known caregivers / representatives who currently or will assist patient after discharge: PRAVEEN RENNER, * Verbal permission to speak to the caregivers and representatives has been obtained from the patient. Yes * Community resources currently utilized None * Please name any agencies selected above. NONE * Additional services required to return to the preadmission environment? No * Can the patient safely return to the preadmission environment? Yes * Has this patient been hospitalized within the prior 30 days at any hospital? No Coverage Notice Reviewer: [id number] John Floyd Notice Issued Date-Time: 02/18/2019 9:35 Notice Type: Patient Choice Letter Notice Delivered To: Patient Relationship to Patient: Muleser Name: Delivery Method: HAND - Hand Delivered Nasreen Days: Prior Verbal Notification: Recipient Understood Notice: Yes Recipient Signature: Yes Med Rec Note Co-signed by Attending: Coverage Notice Comment: ASHUTOSH GUEVARA Patient Name: SHALONDA GOODWIN Page [id number] at 1646 All edits/amendments must be made on the electronic document DICTATION DATE: 02/18/191644 SALES SUPPORT ENGINEER: MACIEL 02/18/191644 RPT#: [id number] DC DATE: STATUS: ADM IN [facility] [address] [place] [address] END OF REPORT
--- NOTE | 2019-02-18 18:34 | NUR ---
UPON WALKING IN, PT IV OUT. BED WET FROM IV FLUIDS. LINENS CHANGED. WILL USE OTHER IV
[2019-02-18 19:00] VITALS: BP 123/66
[2019-02-18 20:00] VITALS: BP 154/75
--- NOTE | 2019-02-18 21:59 | NUR ---
PATIENT SITTING UP IN BED. NASAL CANULA AT 2L/MIN. IV L AC SL, NO PAIN, REDNESS OR SWELLING AT IV SITE. CHANGED PATIENT PADS UNDERNEATH HIM. PATIENT DENIES ANY PAIN AT THIS TIME. ENCOURAGED PATIENT TO CALL WITH ANY NEEDS. BED RAILS X2. CALL LIGHT AND BEDSIDE TABLE WITHIN REACH.
[2019-02-19 01:21] VITALS: BP 142/69
[2019-02-19 04:00] VITALS: BP 142/79; BP 147/66
[2019-02-19 04:39] LABS: BASOPHILS 0.2 % (0-2); EOSINOPHILS 3.5 % (0-7); HEMATOCRIT 29.7 % (42.0-54.0); HEMOGLOBIN 9.4 g/dL (13.5-17.5); IMMATURE GRANULOCYTES 0.3 % (0-5); LYMPHOCYTES 18.3 % (15-50); MCH 26.6 pg (26.0-34.0); MCHC 31.6 g/dL (31.0-37.0); MCV 83.9 fL (80.0-100.0); MEAN PLATELET VOLUME 8.3 fL (7.4-10.4); NEUTROPHILS 69.7 % (40-80); PLATELET COUNT 173 10x3/uL (130-400); RBC 3.54 10x6/uL (4.20-6.10); RDW 15.6 % (11.5-14.5); WBC 12.7 10x3/uL (4.8-10.8)
[2019-02-19 04:55] LABS: CALC OSMOLALITY 277 mosm/kg (275-300); CALCIUM 7.8 mg/dL (8.5-10.1); CARBON DIOXIDE 31.8 mmol/L (21.0-32.0); CHLORIDE - SERUM 104 mmol/L (98-107); CREATININE - SERUM 0.8 mg/dL (0.6-1.3); GLUCOSE 116 mg/dL (74-106); POTASSIUM - SERUM 3.8 mmol/L (3.5-5.1); SODIUM 138 mmol/L (136-145); UREA NITROGEN 14 mg/dL (7-18); eGFR NON AFRICAN AMERICAN > 90 mL/min (90-120)
--- NOTE | 2019-02-19 05:37 | NUR ---
PT RECEIVED LAYING IN BED AWAKE AND ALERT WATCHING TV. NO COMPLAINTS AT PRESENT. IV BAG CHANGED AND ANTIBIOTIC INFUSING.
[2019-02-19 07:59] VITALS: BP 137/66
--- NOTE | 2019-02-19 09:08 | MORECARE ---
CASE MANAGEMENT DISCHARGE SUMMARY PATIENT: SHALONDA GOODWIN UNIT: [id number] ADM DATE: 02/15/19 AGE: 73 : 44 SEX: M ROOM/BED: D.2103 AUTHOR: HUGH,DOC PHYSICIAN: REFERRING PHYSICIAN: CARRIE PAGE MD DATE OF SERVICE: 02/19/19 Discharge Plan Patient Name: SHALONDA GOODWIN Facility: [facility]:[place] : 1945 Planned Disposition: [facility] Facility Anticipated Discharge Date: Discharge Date: Expected LOS: Initial Reviewer: [id number] Initial Review Date: 02/18/2019 Generated: 02/19/19 10:08 am Comments DCP- Discharge Planning Updated by [id number]: Raoy Floyd on 02/18/19 3:[address] Patient Name: SHALONDA GOODWIN Admission Status: ER Accout number: [id number] Admission Date: 02-15-2019 : 1945 Admission Diagnosis: Attending: CARRIE PAGE Current LOS: 3 Anticipated DC Date: Planned Disposition: [facility] Facility Primary Insurance: [facility] MEDICARE SOLUTIONS PLANNED EXTERNAL PROVIDER: ASHUTOSH GUEVARA MEDICARE REHAB BED Discharge Planning Comments: CM MET WITH PT IN ROOM TO DISCUSS DISCHARGE PLANNING AND NEEDS. PT REPORTS HE IS STILL AT [facility] FOR REHAB [facility]. PT WANTS TO RETURN TO [facility] TO COMPLETE REHAB AT HOSPITAL DISCHARGE, REPORTS ABILITY TO SIT FOR VAN TRANSPORT. CHOICE SIGNED FOR [facility]. CM CALLED [facility], LEFT MESSAGE FOR CM AT [phone], TO CONFIRM REHAB BED; SHE WAS GONE FOR THE DAY. FOR DISCHARGE, FAX DISCHARGE INFORMATION TO [facility] AT [phone]. NURSE REPORT TO BE CALLED TO [facility] AT [phone]. [facility] TO ARRANGE VAN TRANSPORTATION. Decker Operator: Rayo Floyd DCPIA - Discharge Planning Initial Assessment Updated by [id number]: Rayo Floyd on 02/18/19 4:42 pm * Is the patient Alert and Oriented? Yes * How many steps to enter\exit or inside your home? ELEVATOR * PCP DR. PAGE * Pharmacy [facility]. * Preadmission Environment [facility] Facility * Facility Name [facility] * ADLs Partial Dependent * Partial ADLs (Assistance needed) Ambulation Bathing Dressing Medication Management Toileting * Equipment Other * Other Equipment ALL MEDICAL EQUIPMENT PROVIDED BY [facility] * List name and contact numbers for known caregivers / representatives who currently or will assist patient after discharge: PRAVEEN RENNER, * Verbal permission to speak to the caregivers and representatives has been obtained from the patient. Yes * Community resources currently utilized None * Please name any agencies selected above. NONE * Additional services required to return to the preadmission environment? No * Can the patient safely return to the preadmission environment? Yes * Has this patient been hospitalized within the prior 30 days at any hospital? No External Providers External Provider: [facility] Next Contact Date: 02/19/2019 Service Request Date: Service Type: Resolution: Reviewer: Comments: Coverage Notice Reviewer: [id number] John Floyd Notice Issued Date-Time: 02/18/2019 9:35 Notice Type: Patient Choice Letter Notice Delivered To: Patient Relationship to Patient: Ornamental Ironworker Helper Name: Delivery Method: HAND - Hand Delivered Nasreen Days: Prior Verbal Notification: Recipient Understood Notice: Yes Recipient Signature: Yes Med Rec Note Co-signed by Attending: Coverage Notice Comment: ASHUTOSH SONYDevaughn Last DP export: 02/18/19 3:46 Patient Name: SHALONDA GOODWIN Page [id number] at 0908 All edits/amendments must be made on the electronic document DICTATION DATE: 02/19/19907 FINGERPRINT TECHNICIAN: MACIEL 02/19/19 09 RPT#: [id number] DC DATE: STATUS: ADM IN [facility] [address] [facility] [place] [address] END OF REPORT
[2019-02-19 11:23] VITALS: BP 124/58
--- NOTE | 2019-02-19 12:58 | MORECARE ---
CASE MANAGEMENT DISCHARGE SUMMARY PATIENT: SHALONDA GOODWIN UNIT: [id number] ADM DATE: 02/15/19 AGE: 73 : 44 SEX: M ROOM/BED: D.2103 AUTHOR: AMRIANGEL REESE PHYSICIAN: REFERRING PHYSICIAN: CARRIE PAGE MD DATE OF SERVICE: 02/19/19 Discharge Plan Patient Name: SHALONDA GOODWIN Facility: [facility]:[place] : 1945 Planned Disposition: Nursing Facility NEVAEH Cert Anticipated Discharge Date: Discharge Date: Expected LOS: Initial Reviewer: [id number] Initial Review Date: 02/18/2019 Generated: 02/19/19 1:58 pm Comments DCP- Discharge Planning Updated by [email or web address]: Rayo Floyd on 02/19/19 11:[address] Patient Name: SHALONDA GOODWIN Encounter No: [id number] : 1945 Primary Insurance: [facility] MEDICARE SOLUTIONS Anticipated DC Date: Planned Disposition: [facility] Facility External Planned Provider:[facility], LONG TERM CARE MEDICAID BED Discharge Planning Comments: CM CALLED [facility], SPOKE TO GALA, DEPUTY MANAGER, , WHO CONFIRMED PT IS IN FINANCE INSURANCE MANAGER CARE MEDICAID BED; [place] TO ACCEPT BACK AT DISCHARGE. FOR DISCHARGE, FAX DISCHARGE INFORMATION TO [facility] AT [phone]. NURSE REPORT TO BE CALLED TO [facility] AT [phone]. [facility] TO ARRANGE VAN TRANSPORTATION. Harbor Master: Rayo Floyd DCP- Discharge Planning Updated by [email or web address]: Rayo Floyd on 02/18/19 3:[address] Patient Name: SHALONDA GOODWIN Admission Status: ER Accout number: [id number] Admission Date: 02-15-2019 : 1945 Admission Diagnosis: Attending: CARRIE PAGE Current LOS: 3 Anticipated DC Date: Planned Disposition: [facility] Facility Primary Insurance: [facility] MEDICARE SOLUTIONS PLANNED EXTERNAL PROVIDER: [facility], MEDICARE REHAB BED Discharge Planning Comments: CM MET WITH PT IN ROOM TO DISCUSS DISCHARGE PLANNING AND NEEDS. PT REPORTS HE IS STILL AT [facility] FOR REHAB SERVICES. PT WANTS TO RETURN TO [facility] TO COMPLETE REHAB AT HOSPITAL DISCHARGE, REPORTS ABILITY TO SIT FOR VAN TRANSPORT. CHOICE SIGNED FOR [facility]. CM CALLED [facility], LEFT MESSAGE FOR CM AT [phone], TO CONFIRM REHAB BED; SHE WAS GONE FOR THE DAY. FOR DISCHARGE, FAX DISCHARGE INFORMATION TO [facility] AT [phone]. NURSE REPORT TO BE CALLED TO [facility] AT [phone]. [facility] TO ARRANGE VAN TRANSPORTATION. Harbor Master: Rayo Floyd DCPIA - Discharge Planning Initial Assessment Updated by [id number]: Rayo Floyd on 02/18/19 4:42 pm * Is the patient Alert and Oriented? Yes * How many steps to enter\exit or inside your home? ELEVATOR * PCP DR. PAGE * Pharmacy [facility]. * Preadmission Environment [facility] Facility * Facility Name [facility] * ADLs Partial Dependent * Partial ADLs (Assistance needed) Ambulation Bathing Dressing Medication Management Toileting * Equipment Other * Other Equipment ALL MEDICAL EQUIPMENT PROVIDED BY [facility] * List name and contact numbers for known caregivers / representatives who currently or will assist patient after discharge: KIYA RENNERKIZZY, * Verbal permission to speak to the caregivers and representatives has been obtained from the patient. Yes * Community resources currently utilized None * Please name any agencies selected above. NONE * Additional services required to return to the preadmission environment? No * Can the patient safely return to the preadmission environment? Yes * Has this patient been hospitalized within the prior 30 days at any hospital? No Coverage Notice Reviewer: [id number] - Rayo Floyd Notice Issued Date-Time: 02/18/2019 9:35 Notice Type: Patient Choice Letter Notice Delivered To: Patient Relationship to Patient: Supervisor Weaving Name: Delivery Method: HAND - Hand Delivered Nasreen Days: Prior Verbal Notification: Recipient Understood Notice: Yes Recipient Signature: Yes Med Rec Note Co-signed by Attending: Coverage Notice Comment: ASHUTOSH SONYDevaughn Last DP export: 02/19/19 8:08 Patient Name: SHALONDA GOODWIN Page 38542 at 1258 All edits/amendments must be made on the electronic document DICTATION DATE: 02/19/191257 POST ACUTE CARE NURSE PRACTITIONER: DM 02/19/19 125 RPT#: [id number] DC DATE: STATUS: ADM IN [facility] [address] [place] [address] END OF REPORT
[2019-02-19 15:47] VITALS: BP 135/61
--- NOTE | 2019-02-19 19:29 | NUR ---
EVENING ROUNDS COMPLETE, PT SITTING UP IN BED RECEIVING BREATHING TREATMENT AT THIS TIME. AAOX4, PT DENIES ANY PAIN OR NEEDS AT THIS TIME. CL IN REACH, BED IN LOWEST POSITION.
[2019-02-19 20:00] VITALS: BP 111/55
[2019-02-20 01:08] VITALS: BP 147/74
[2019-02-20 05:19] LABS: BASOPHILS 0.2 % (0-2); EOSINOPHILS 3.1 % (0-7); HEMATOCRIT 30.7 % (42.0-54.0); HEMOGLOBIN 9.7 g/dL (13.5-17.5); IMMATURE GRANULOCYTES 0.3 % (0-5); LYMPHOCYTES 16.9 % (15-50); MCH 26.6 pg (26.0-34.0); MCHC 31.6 g/dL (31.0-37.0); MCV 84.3 fL (80.0-100.0); MEAN PLATELET VOLUME 8.4 fL (7.4-10.4); MONOCYTES 9.9 % (2-11); NEUTROPHILS 69.6 % (40-80); PLATELET COUNT 183 10x3/uL (130-400); RBC 3.64 10x6/uL (4.20-6.10); RDW 15.7 % (11.5-14.5); WBC 12.1 10x3/uL (4.8-10.8)
[2019-02-20 05:32] VITALS: BP 142/71
[2019-02-20 05:32] LABS: CALC OSMOLALITY 274 mosm/kg (275-300); CALCIUM 8.3 mg/dL (8.5-10.1); CARBON DIOXIDE 33.8 mmol/L (21.0-32.0); CHLORIDE - SERUM 103 mmol/L (98-107); CREATININE - SERUM 0.8 mg/dL (0.6-1.3); GLUCOSE 99 mg/dL (74-106); POTASSIUM - SERUM 3.9 mmol/L (3.5-5.1); SODIUM 137 mmol/L (136-145); UREA NITROGEN 14 mg/dL (7-18); eGFR NON AFRICAN AMERICAN > 90 mL/min (90-120)
--- NOTE | 2019-02-20 07:16 | NUR ---
BEDSIDE REPORT GIVEN, PT RECEIVED LAYING IN BED AWAKE AND ALERT. NO COMPLAINTS AT PRESENT. WAITING FOR BREAKFAST.
--- NOTE | 2019-02-20 10:03 | NUR ---
Nutrition Follow-up: Eating well. Observed majority of breakfast eaten this AM, including Boost. Noted MANAGER PEDIATRIC rec MBSS. Diet: Cardiac, Boost TID PO intake: 75-100% No new wt - daily wts ordered Last BM: 02/19 Labs noted: Ca 8.3 Meds noted: Miralax, Lasix, Pepcid -Continue current diet as tolerated with consistencies per ST. -Need new wt. -RD following.
[2019-02-20 10:39] VITALS: BP 157/73
[2019-02-20 13:19] VITALS: BP 121/57
--- NOTE | 2019-02-20 14:46 | NUR ---
OT NOTE:PT COMPLETED TOILETING WITH MIN A. PT OCMPLETED ADL MOB WITH MIN A. PT COMPLETED SIT TO SUPINE WITH SBA. THANK YOU,TED IVEY
--- NOTE | 2019-02-20 15:35 | NUR ---
OT NOTE: BED MOB WITH MIN ASSIST; MIN ASSIST WITH TRANSFERS WITH USE OF RW; SIMPLE GROOMING WITH SET UP; IN ROOM AMBULATION WITH USE OF RW AND MIN ASSIST. HUA LOPEZ, OTR/L
[2019-02-20 18:10] VITALS: BP 137/72
[2019-02-20 21:28] VITALS: BP 150/66
[2019-02-21] VITALS: BP 138/77
[2019-02-21 04:00] VITALS: BP 137/74
--- NOTE | 2019-02-21 07:16 | NUR ---
OT NOTE: DOS 02/20/19 PT INCREASED IN FUNCTIONAL PERFORMANCE. PT COMPLETED ADL MOB WITH CGA. PT COMPLETED SIT TO STANDS WITH CGA. PT COMPLETED TOILETING WITH CGA-MIN A. PT IS STILL CONFUSED WITH SEQUENCING MULTI STEP TASKS EXHIBITS NEED FOR CUES. THANK YOU, TED IVEY
--- NOTE | 2019-02-21 07:33 | NUR ---
PT RECEIVED LAYING IN BED AWAKE AND ALERT. NO COMPLAINTS. WAITING FOR BREAKFAST.
--- NOTE | 2019-02-21 08:37 | NUR ---
OT NOTE: PT WITH INCREASED DIFFICULTY FEEDING THIS AM. PT UP IN BED; AGREEABLE TO SIT UP IN CHAIR FOR BETTER POSITIONING. TRANSFER WITH MIN ASSIST FROM BED TO CHAIR; MIN ASSIST WITH BED MOB; PT WITH NOTED DECREASED COORDINATION IN L HAND( DOMINANT HAND)..GROSS COMPLIANCE REPRESENTATIVE DEALER STRENGTH IS EQUAL SARITA BUT COORDINATION IN L HAND IS IMPAIRED. WILL ATTEMPT TO PROVIDE BUILT UP HANDLE FOR FEEDING DUE TO PROBLEMS MANIPULATING UTENSILS. ABLE TO WASH FACE AND HANDS WITH CLOTH AND SET UP; ABLE TO MONI SOCKS WITH MIN ASSIST. ALARM PAD PLACED IN CHAIR FOR SAFETY. HUA LOPEZ, OTR/L
[2019-02-21 09:06] VITALS: BP 134/57
[2019-02-21 13:21] VITALS: BP 130/60
[2019-02-21 17:19] VITALS: BP 142/73
--- NOTE | 2019-02-21 19:10 | NUR ---
REPORT RECEIVED. PT UP IN BED RESTING WITH EYES CLOSED. RR EVEN AND UNLABORED ON RA. NO S/SX OF DISTRESS NOTED AT THIS TIME. NO NEEDS EXPRESSED. FALL PRECAUTIONS IN PLACE. CALL LIGHT IN REACH. WILL CTM.
[2019-02-21 20:30] VITALS: BP 147/70
--- NOTE | 2019-02-21 22:13 | NUR ---
BEDTIME MEDS GIVEN. IV PEPCID ADMINISTERED.
[2019-02-22 00:30] VITALS: BP 155/59
--- NOTE | 2019-02-22 03:39 | NUR ---
20G IV RESITED TO LEFT FA X1 ATTEMPT. 22G D/C FROM RIGHT FA, CATHETER TIP INTACT. NO FURTHER NEEDS EXPRESSED. WILL CTM.
[2019-02-22 05:03] LABS: BASOPHILS 0.2 % (0-2); HEMATOCRIT 30.8 % (42.0-54.0); HEMOGLOBIN 9.5 g/dL (13.5-17.5); IMMATURE GRANULOCYTES 0.4 % (0-5); LYMPHOCYTES 18.4 % (15-50); MCH 26.2 pg (26.0-34.0); MCHC 30.8 g/dL (31.0-37.0); MCV 84.8 fL (80.0-100.0); MEAN PLATELET VOLUME 9.3 fL (7.4-10.4); MONOCYTES 10.3 % (2-11); NEUTROPHILS 66.7 % (40-80); RBC 3.63 10x6/uL (4.20-6.10); RDW 16.4 % (11.5-14.5); WBC 11.2 10x3/uL (4.8-10.8)
[2019-02-22 05:11] LABS: PLATELET COUNT 223 10x3/uL (130-400)
[2019-02-22 05:17] LABS: CALC OSMOLALITY 267 mosm/kg (275-300); CARBON DIOXIDE 30.3 mmol/L (21.0-32.0); CHLORIDE - SERUM 99 mmol/L (98-107); CREATININE - SERUM 0.8 mg/dL (0.6-1.3); GLUCOSE 101 mg/dL (74-106); POTASSIUM - SERUM 4.1 mmol/L (3.5-5.1); SODIUM 134 mmol/L (136-145); UREA NITROGEN 12 mg/dL (7-18); eGFR NON AFRICAN AMERICAN > 90 mL/min (90-120)
[2019-02-22 06:42] VITALS: BP 156/73
--- NOTE | 2019-02-22 07:27 | NUR ---
PT AWAKE AND ORIENTED, SPEECH IS GARBLED AND DIFFICULT TO UNDERSTAND. SEEMS TO BE IN PLESANT MOOD, NO COMPLAINTS OR CONCERNS AT THIS TIME. NO FAMILY PRESENT AT BEDSIDE. ALL QUESIONS ANSWERED TO THE BEST OF MY ABILITY. CL IN REACH, SRX2.
[2019-02-22 08:06] VITALS: BP 125/62
--- NOTE | 2019-02-22 09:47 | NUR ---
PT AWAKE AND ORIENTED, PHYSICAL THERAPY ASSISTED PT TO CHAIR BESIDE BED. PT TOOK PILLS WITHOUT DIFFICULTY, NO COMPLAINTS/CONCERNS OR QUESTIONS AT THIS TIME. AID CLEANED PT AND REMAID BED PRIOR TO GETTING UP. CL IN REACH, NO FAMILY PRESENT AT BEDSIDE.
--- NOTE | 2019-02-22 11:05 | NUR ---
I have reviewed this patient and I concur with the Shift Assessment completed by the Licensed Practical Nurse today this shift.
[2019-02-22 11:33] VITALS: BP 106/58
--- NOTE | 2019-02-22 12:28 | NUR ---
pt resting peacefully, breaths even, regular and unlabored. no signs or SYMTPOMS OF ACUTE DSITRESS NOTED AT THIS TIEM. NO FAMILY PRESENT at bedside. cl inreach srx2
[2019-02-22 15:31] VITALS: BP 124/72
--- NOTE | 2019-02-22 19:00 | NUR ---
REPORT RECEIVED. PT IN BED WATCHING TV. RR EVEN AND UNLABORED ON RA. NO S/SX OF DISTRESS NOTED AT THIS TIME. FALL PRECUATIONS IN PLACE. NO NEEDS EXPRESSED. CALL LIGHT IN REACH WILL CTM.
[2019-02-22 20:30] VITALS: BP 110/54
[2019-02-23 00:26] VITALS: BP 139/71
[2019-02-23 05:09] LABS: BASOPHILS 0.3 % (0-2); EOSINOPHILS 3.7 % (0-7); HEMATOCRIT 31.6 % (42.0-54.0); HEMOGLOBIN 9.7 g/dL (13.5-17.5); IMMATURE GRANULOCYTES 0.2 % (0-5); LYMPHOCYTES 18.6 % (15-50); MCHC 30.7 g/dL (31.0-37.0); MCV 84.7 fL (80.0-100.0); MEAN PLATELET VOLUME 8.9 fL (7.4-10.4); MONOCYTES 9.6 % (2-11); NEUTROPHILS 67.6 % (40-80); PLATELET COUNT 236 10x3/uL (130-400); RBC 3.73 10x6/uL (4.20-6.10); RDW 16.8 % (11.5-14.5); WBC 10.9 10x3/uL (4.8-10.8)
[2019-02-23 05:32] LABS: CALC OSMOLALITY 278 mosm/kg (275-300); CARBON DIOXIDE 30.3 mmol/L (21.0-32.0); CHLORIDE - SERUM 101 mmol/L (98-107); CREATININE - SERUM 0.9 mg/dL (0.6-1.3); GLUCOSE 109 mg/dL (74-106); POTASSIUM - SERUM 4.2 mmol/L (3.5-5.1); SODIUM 138 mmol/L (136-145); eGFR NON AFRICAN AMERICAN 88 mL/min (90-120)
[2019-02-23 05:34] LABS: UREA NITROGEN 18 mg/dL (7-18)
--- NOTE | 2019-02-23 07:17 | NUR ---
PT RESTING PEACEFULLY, BREATHS EVEN/REGULAR AND UNLABORED, NO SIGNS OR SYMTPOMS OF ACUTE DISTRESS NOTED AT THIS TIME. NO FAMILY PRESENT AT BEDSIDE. CL IN REACH, SRX2.
[2019-02-23 10:28] VITALS: BP 103/52
--- NOTE | 2019-02-23 10:49 | NUR ---
I have reviewed this patient and I concur with the Shift Assessment completed by the Licensed Practical Nurse today this shift.
--- NOTE | 2019-02-23 13:10 | NUR ---
PT AWAKE AND ORIENTED, ASSISTED TO BATHROOM AND BACK. FAMILY AT BEDSIDE, NO COMPLAINTS/CONCERNS AT TIS TIME. ALL QUESTIONS ANSWERED TO THE BEST OF MY ABILITY. BACK IN BED, RESTING. CL IN REACH, SRX2.
[2019-02-23 14:02] VITALS: BP 113/64
--- NOTE | 2019-02-23 14:47 | NUR ---
OT NOTE: PT DOING WELL. ABLE TO PERFORM SUPINE TO SIT WITHOUT ASSIST. SIT TO STAND WITH CGA; AMB TO AND FROM BATHROOM WITH MIN ASSIST; HYGIENE WITH SET UP. ABLE TO WASH HANDS WITH CLOTH AND SET UP. ABLE TO MONI SOCKS WITH MIN ASSIST. BACK TO BED WITH MIN ASSIST. [id number] HUA LOPEZ, OTR/L
--- NOTE | 2019-02-23 15:47 | NUR ---
PT RESTING PEACEUFLLY. NO COMPLAITNS/CONCERNS. DID NOT WAKE WHEN I ENTERED TO CHECK HIM. 02 HAD BEEN TURNED OFF, PT WAS SATTING 85, PUT BACK ON 2L AND PT IS NOW 97. CL IN REACH, SRX2, BED ALARM ON AND WORKING WNL.
[2019-02-23 17:10] VITALS: BP 126/64
[2019-02-23 20:29] VITALS: BP 129/62
[2019-02-24 00:30] VITALS: BP 131/68
[2019-02-24 04:03] VITALS: BP 121/59
[2019-02-24 06:04] LABS: BASOPHILS 0.3 % (0-2); HEMATOCRIT 30.3 % (42.0-54.0); HEMOGLOBIN 9.4 g/dL (13.5-17.5); IMMATURE GRANULOCYTES 0.5 % (0-5); LYMPHOCYTES 17.8 % (15-50); MCH 26.3 pg (26.0-34.0); MCV 84.9 fL (80.0-100.0); MEAN PLATELET VOLUME 8.4 fL (7.4-10.4); MONOCYTES 9.9 % (2-11); NEUTROPHILS 67.5 % (40-80); PLATELET COUNT 232 10x3/uL (130-400); RBC 3.57 10x6/uL (4.20-6.10); RDW 17.4 % (11.5-14.5); WBC 10.2 10x3/uL (4.8-10.8)
[2019-02-24 06:21] LABS: CALC OSMOLALITY 277 mosm/kg (275-300); CALCIUM 8.7 mg/dL (8.5-10.1); CARBON DIOXIDE 31.5 mmol/L (21.0-32.0); CHLORIDE - SERUM 102 mmol/L (98-107); CREATININE - SERUM 0.9 mg/dL (0.6-1.3); GLUCOSE 98 mg/dL (74-106); POTASSIUM - SERUM 4.5 mmol/L (3.5-5.1); SODIUM 138 mmol/L (136-145); UREA NITROGEN 19 mg/dL (7-18); eGFR NON AFRICAN AMERICAN 88 mL/min (90-120)
--- NOTE | 2019-02-24 07:09 | NUR ---
PT ALERT AND ORIENTED X4 WHEN I ENTERED. ASKING REPEATEDLY WHEN HE'LL BE LEAVING TO GO BACK TO [facility]. DO NOT HAVE A D/C AT THIS TIME. WILL INFORM PT IF/WHEN I GET ONE. NO FAMILY AT BEDSIDE. CL IN REACH,S RX2.
[2019-02-24 08:40] VITALS: BP 123/63
--- NOTE | 2019-02-24 08:59 | NUR ---
PT AWAKE AND ORIENTED, SITTING IN CHAIR BESIDE BED. ATE FULL BREAKFAST. ASKING TO GO EARLY POSSIBLE THIS MORNING. WILL CALL DOC AND SEE IF D/C IS AVALAIBLE. CL IN REACH, SRX2.
--- NOTE | 2019-02-24 09:05 | NUR ---
SPOKE TO DR. KAYLEE OLSON PT, HE STATES HE WILL PUT IN THE D/C THIS MORNING WHEN HE ARRIVES. INFORMED C.M. SO THEY CAN BEGIN RIDE ARRANGMENTS.
--- NOTE | 2019-02-24 09:58 | MORECARE ---
CASE MANAGEMENT DISCHARGE SUMMARY PATIENT: SHALONDA GOODWIN UNIT: [id number] ADM DATE: 02/15/19 AGE: 73 : 44 SEX: M ROOM/BED: D.2103 AUTHOR: HUGH,DOC PHYSICIAN: REFERRING PHYSICIAN: CARRIE PAGE MD DATE OF SERVICE: 02/24/19 Discharge Plan Patient Name: SHALONDA GOODWIN Facility: [facility]:[place] : 1945 Planned Disposition: Nursing Facility [facility] Anticipated Discharge Date: 02/24/19 Discharge Date: Expected LOS: 9 Initial Reviewer: [id number] Initial Review Date: 02/18/2019 Generated: 02/24/19 10:57 am Comments DCP- Discharge Planning Updated by [email or web address]: Rayo Floyd on 02/19/19 11:[address] Patient Name: SHALONDA GOODWIN Encounter No: [id number] : 1945 Primary Insurance: [facility] MEDICARE SOLUTIONS Anticipated DC Date: Planned Disposition: [facility] Facility External Planned Provider:[facility], LONG TERM CARE MEDICAID BED Discharge Planning Comments: CM CALLED [facility], SPOKE TO GALA, PHYS ASSISTANT, , WHO CONFIRMED PT IS IN CORPORATE COMMUNICATIONS MANAGER CARE MEDICAID BED; [facility] TO ACCEPT BACK AT DISCHARGE. FOR DISCHARGE, FAX DISCHARGE INFORMATION TO [facility] AT [phone]. NURSE REPORT TO BE CALLED TO [facility] AT [phone]. [facility] TO ARRANGE VAN TRANSPORTATION. Sodder: Rayo Floyd DCP- Discharge Planning Updated by [id number]: Rayo Floyd on 02/18/19 3:[address] Patient Name: SHALONDA GOODWIN Admission Status: ER Accout number: [id number] Admission Date: 02-15-2019 : 1945 Admission Diagnosis: Attending: CARRIE PAGE Current LOS: 3 Anticipated DC Date: Planned Disposition: [facility] Facility Primary Insurance: [facility] MEDICARE SOLUTIONS PLANNED EXTERNAL PROVIDER: [facility], MEDICARE REHAB BED Discharge Planning Comments: CM MET WITH PT IN ROOM TO DISCUSS DISCHARGE PLANNING AND NEEDS. PT REPORTS HE IS STILL AT [facility] FOR REHAB SERVICES. PT WANTS TO RETURN TO [facility] TO COMPLETE REHAB AT HOSPITAL DISCHARGE, REPORTS ABILITY TO SIT FOR VAN TRANSPORT. CHOICE SIGNED FOR [facility]. CM CALLED [facility], LEFT MESSAGE FOR CM AT [phone], TO CONFIRM REHAB BED; SHE WAS GONE FOR THE DAY. FOR DISCHARGE, FAX DISCHARGE INFORMATION TO [facility] AT [phone]. NURSE REPORT TO BE CALLED TO [facility] AT [phone]. [facility] TO ARRANGE VAN TRANSPORTATION. Sodder: Rayo Floyd DCPIA - Discharge Planning Initial Assessment Updated by [email or web address]: Rayo Floyd on 02/18/19 4:42 pm * Is the patient Alert and Oriented? Yes * How many steps to enter\exit or inside your home? ELEVATOR * PCP DR. PAGE * Pharmacy [facility]. * Preadmission Environment [facility] Facility * Facility Name [facility] * ADLs Partial Dependent * Partial ADLs (Assistance needed) Ambulation Bathing Dressing Medication Management Toileting * Equipment Other * Other Equipment ALL MEDICAL EQUIPMENT PROVIDED BY [facility] * List name and contact numbers for known caregivers / representatives who currently or will assist patient after discharge: KIYA RENNERKIZZY, * Verbal permission to speak to the caregivers and representatives has been obtained from the patient. Yes * Community resources currently utilized None * Please name any agencies selected above. NONE * Additional services required to return to the preadmission environment? No * Can the patient safely return to the preadmission environment? Yes * Has this patient been hospitalized within the prior 30 days at any hospital? No Coverage Notice Reviewer: [id number] - Rayo Floyd Notice Issued Date-Time: 02/18/2019 9:35 Notice Type: Patient Choice Letter Notice Delivered To: Patient Relationship to Patient: District Court Justice Name: Delivery Method: HAND - Hand Delivered Nasreen Days: Prior Verbal Notification: Recipient Understood Notice: Yes Recipient Signature: Yes Med Rec Note Co-signed by Attending: Coverage Notice Comment: ASHUTOSH GUEVARA Last DP export: 02/19/19 11:58 Patient Name: SHALONDA GOODWIN Page 33650 at 0958 All edits/amendments must be made on the electronic document DICTATION DATE: 02/24/19956 CLINICAL REHABILITATION COORDINATOR: MACIEL 02/24/19956 RPT#: [id number] DC DATE: STATUS: ADM IN [facility] [address] [place] [address] END OF REPORT
--- NOTE | 2019-02-24 10:40 | NUR ---
I CONCUR WITH THE METAL MINER ASSESSMENT OF THIS PATIENT.
--- NOTE | 2019-02-24 11:35 | MORECARE ---
CASE MANAGEMENT DISCHARGE SUMMARY PATIENT: SHALONDA GOODWIN UNIT: [id number] ADM DATE: 02/15/19 AGE: 73 : 43 SEX: M ROOM/BED: D.2103 AUTHOR: HUGH,DOC PHYSICIAN: REFERRING PHYSICIAN: CARRIE PAGE MD DATE OF SERVICE: 02/24/19 Discharge Plan Patient Name: SHALONDA GOODWIN Facility: [facility]:[place] : 1945 Planned Disposition: Nursing Facility [facility] Cert Anticipated Discharge Date: 02/24/19 Discharge Date: Expected LOS: 9 Initial Reviewer: [id number] Initial Review Date: 02/18/2019 Generated: 02/24/19 12:34 pm Comments DCP- Discharge Planning Updated by [email or web address]: Rayo Floyd on 02/24/19 10:[address] Patient Name: SHALONDA GOODWIN Encounter No: [id number] : 1945 Primary Insurance: [facility] MEDICARE SOLUTIONS Anticipated DC Date: 02-24-2019 Planned Disposition: Nursing Facility [facility] Cert External Planned Provider: [facility] TERM CARE MEDICAID BED Discharge Planning Comments: CM CALLED [facility], SPOKE TO VANCE AND NOTIFIED OF PLANNED DC TODAY. PT IN [facility] MEDICAID BED; [facility] TO ACCEPT BACK AT DISCHARGE. CM FAXED UPDATE TO [facility] AT [phone]. FOR DISCHARGE, FAX DISCHARGE INFORMATION TO [facility] AT [phone]. NURSE REPORT TO BE CALLED TO [facility] AT [phone]. [facility] TO ARRANGE VAN TRANSPORTATION. Supervisor Meter Shop: Rayo Floyd DCP- Discharge Planning Updated by [email or web address]: Rayo Floyd on 02/19/19 11:[address] Patient Name: SHALONDA GOODWIN Encounter No: [id number] : 1945 Primary Insurance: [facility] MEDICARE SOLUTIONS Anticipated DC Date: Planned Disposition: Jail Facility External Planned Provider:[facility] TERM CARE MEDICAID BED Discharge Planning Comments: CM CALLED [facility], SPOKE TO GALA, UTILITY WORKER [place], , WHO CONFIRMED PT IS IN [facility] MEDICAID BED; [facility] TO ACCEPT BACK AT DISCHARGE. FOR DISCHARGE, FAX DISCHARGE INFORMATION TO [facility] AT [phone]. NURSE REPORT TO BE CALLED TO [facility] AT [phone]. [facility] TO ARRANGE VAN TRANSPORTATION. Supervisor Meter Shop: Rayo Floyd DCP- Discharge Planning Updated by [email or web address]: Rayo Floyd on 02/18/19 3:[address] Patient Name: SHALONDA GOODWIN Admission Status: ER Accout number: [id number] Admission Date: 02-15-2019 : 1945 Admission Diagnosis: Attending: CARRIE PAGE Current LOS: 3 Anticipated DC Date: Planned Disposition: Jail Facility Primary Insurance: [facility] MEDICARE SOLUTIONS PLANNED EXTERNAL PROVIDER: [facility] MEDICARE REHAB BED Discharge Planning Comments: CM MET WITH PT IN ROOM TO DISCUSS DISCHARGE PLANNING AND NEEDS. PT REPORTS HE IS STILL AT [facility] FOR REHAB SERVICES. PT WANTS TO RETURN TO [facility] TO COMPLETE REHAB AT HOSPITAL DISCHARGE, REPORTS ABILITY TO SIT FOR VAN TRANSPORT. CHOICE SIGNED FOR [facility]. CM CALLED [facility], LEFT MESSAGE FOR CM AT [phone], TO CONFIRM REHAB BED; SHE WAS GONE FOR THE DAY. FOR DISCHARGE, FAX DISCHARGE INFORMATION TO [facility] AT [phone]. NURSE REPORT TO BE CALLED TO [facility] AT [phone]. [facility] TO ARRANGE VAN TRANSPORTATION. Supervisor Meter Shop: Rayo Floyd WVPIA - Discharge Planning Initial Assessment Updated by [email or web address]: Rayo Floyd on 02/18/19 4:42 pm * Is the patient Alert and Oriented? Yes * How many steps to enter\exit or inside your home? ELEVATOR * PCP DR. PAGE * Pharmacy [facility]. * Preadmission Environment Jail Facility * Facility Name [facility] * ADLs Partial Dependent * Partial ADLs (Assistance needed) Ambulation Bathing Dressing Medication Management Toileting * Equipment Other * Other Equipment ALL MEDICAL EQUIPMENT PROVIDED BY [facility] * List name and contact numbers for known caregivers / representatives who currently or will assist patient after discharge: PRAVEEN RENNER, * Verbal permission to speak to the caregivers and representatives has been obtained from the patient. Yes * Community resources currently utilized None * Please name any agencies selected above. NONE * Additional services required to return to the preadmission environment? No * Can the patient safely return to the preadmission environment? Yes * Has this patient been hospitalized within the prior 30 days at any hospital? No Coverage Notice Reviewer: [id number] John Floyd Notice Issued Date-Time: 02/18/2019 9:35 Notice Type: Patient Choice Letter Notice Delivered To: Patient Relationship to Patient: Vp Of Global Marketing Name: Delivery Method: HAND - Hand Delivered Nasreen Days: Prior Verbal Notification: Recipient Understood Notice: Yes Recipient Signature: Yes Med Rec Note Co-signed by Attending: Coverage Notice Comment: [facility] Reviewer: [id number] John Floyd Notice Issued Date-Time: 02/24/2019 9:55 Notice Type: IM Discharge Notice Notice Delivered To: Patient Relationship to Patient: Vp Of Global Marketing Name: Delivery Method: HAND - Hand Delivered Nasreen Days: Prior Verbal Notification: Recipient Understood Notice: Yes Recipient Signature: Yes Med Rec Note Co-signed by Attending: Coverage Notice Comment: Last DP export: 02/24/19 8:58 Patient Name: SHALONDA GOODWIN Page 13449 at 1135 All edits/amendments must be made on the electronic document DICTATION DATE: 02/24/191133 DOCK OPERATIONS SUPERVISOR: MACIEL 02/24/191133 RPT#: [id number] DC DATE: STATUS: ADM IN [facility] [address] [place] [address] END OF REPORT
--- NOTE | 2019-02-24 12:54 | NUR ---
SPOKE WITH [facility] AND PT'S HAVE RECEIEVED FLU AND PNEUMONIA SHOTS.
[2019-02-24 13:01] VITALS: BP 119/55
--- NOTE | 2019-02-24 13:01 | NUR ---
Nutrition Follow-up: Diet: [facility], thin liquids + Boost with meals PO intake: 75-100%; reports that his appetite is "very good." States that he is drinking Boost. He does not like Ensure. Last BM: 02/24/19 WT: 123# (02/17/19); Admit wt: 123# (02/15/19)- no new wt, daily wts ordered Meds noted: miralax, lasix, pepcid. Labs reviewed. Continue current nutrition regimen. RD following.
--- NOTE | 2019-02-24 14:23 | MORECARE ---
CASE MANAGEMENT DISCHARGE SUMMARY PATIENT: SHALONDA GOODWIN UNIT: [id number] ADM DATE: 02/15/19 AGE: 73 : 44 SEX: M ROOM/BED: D.2103 AUTHOR: HUGH,DOC PHYSICIAN: REFERRING PHYSICIAN: CARRIE PAGE MD DATE OF SERVICE: 02/24/19 Discharge Plan Patient Name: SHALONDA GOODWIN Facility: [facility]:[place] : 1945 Planned Disposition: Nursing Facility [facility] Cert Anticipated Discharge Date: 02/24/19 Discharge Date: Expected LOS: 9 Initial Reviewer: [id number] Initial Review Date: 02/18/2019 Generated: 02/24/19 3:23 pm Comments DCP- Discharge Planning Updated by [email or web address]: Rayo Floyd on 02/24/19 10:[address] Patient Name: SHALONDA GOODWIN Encounter No: [id number] : 1945 Primary Insurance: [facility] MEDICARE SOLUTIONS Anticipated DC Date: 02-24-2019 Planned Disposition: Nursing Facility [facility] Cert External Planned Provider: [facility], LONG TERM CARE MEDICAID BED Discharge Planning Comments: CM CALLED [facility], SPOKE TO VANCE AND NOTIFIED OF PLANNED DC TODAY. PT IN [facility]P CARE MEDICAID BED; [facility] TO ACCEPT BACK AT DISCHARGE. CM FAXED UPDATE TO [facility] AT [phone]. FOR DISCHARGE, FAX DISCHARGE INFORMATION TO [facility] AT [phone]. NURSE REPORT TO BE CALLED TO [facility] AT [phone]. [facility] TO ARRANGE VAN TRANSPORTATION. Caterer Helper: Rayo Floyd DCP- Discharge Planning Updated by [email or web address]: Rayo Floyd on 02/19/19 11:[address] Patient Name: SHALONDA GOODWIN Encounter No: [id number] : 1945 Primary Insurance: [facility] MEDICARE SOLUTIONS Anticipated DC Date: Planned Disposition: Assisted Facility External Planned Provider:[facility] TERM CARE MEDICAID BED Discharge Planning Comments: CM CALLED [facility], SPOKE TO GALA, INTERNAL GRINDING MACHINE OPERATOR, , WHO CONFIRMED PT IS IN USP CARE MEDICAID BED; [facility] TO ACCEPT BACK AT DISCHARGE. FOR DISCHARGE, FAX DISCHARGE INFORMATION TO [facility] AT [phone]. NURSE REPORT TO BE CALLED TO [facility] AT [phone]. [facility] TO ARRANGE VAN TRANSPORTATION. Caterer Helper: Rayo Floyd DCP- Discharge Planning Updated by [email or web address]: Rayo Floyd on 02/18/19 3:[address] Patient Name: SHALONDA GOODWIN Admission Status: ER Accout number: [id number] Admission Date: 02-15-2019 : 1945 Admission Diagnosis: Attending: CARRIE PAGE Current LOS: 3 Anticipated DC Date: Planned Disposition: Assisted Facility Primary Insurance: [facility] MEDICARE SOLUTIONS PLANNED EXTERNAL PROVIDER: [facility] MEDICARE REHAB BED Discharge Planning Comments: CM MET WITH PT IN ROOM TO DISCUSS DISCHARGE PLANNING AND NEEDS. PT REPORTS HE IS STILL AT [facility] FOR REHAB SERVICES. PT WANTS TO RETURN TO [facility] TO COMPLETE REHAB AT HOSPITAL DISCHARGE, REPORTS ABILITY TO SIT FOR VAN TRANSPORT. CHOICE SIGNED FOR [facility]. CM CALLED [facility], LEFT MESSAGE FOR CM AT [phone], TO CONFIRM REHAB BED; SHE WAS GONE FOR THE DAY. FOR DISCHARGE, FAX DISCHARGE INFORMATION TO [facility] AT [phone]. NURSE REPORT TO BE CALLED TO [facility] AT [phone]. [facility] TO ARRANGE VAN TRANSPORTATION. Caterer Helper: Rayo Floyd NCPIA - Discharge Planning Initial Assessment Updated by [email or web address]: Rayo Floyd on 02/18/19 4:42 pm * Is the patient Alert and Oriented? Yes * How many steps to enter\exit or inside your home? ELEVATOR * PCP DR. PAGE * Pharmacy [facility]. * Preadmission Environment Assisted Facility * Facility Name [facility] * ADLs Partial Dependent * Partial ADLs (Assistance needed) Ambulation Bathing Dressing Medication Management Toileting * Equipment Other * Other Equipment ALL MEDICAL EQUIPMENT PROVIDED BY [facility] * List name and contact numbers for known caregivers / representatives who currently or will assist patient after discharge: PRAVEEN RENNER, * Verbal permission to speak to the caregivers and representatives has been obtained from the patient. Yes * Community resources currently utilized None * Please name any agencies selected above. NONE * Additional services required to return to the preadmission environment? No * Can the patient safely return to the preadmission environment? Yes * Has this patient been hospitalized within the prior 30 days at any hospital? No External Providers External Provider: [facility] Next Contact Date: 02/19/2019 Service Request Date: Service Type: Resolution: Reviewer: Comments: Coverage Notice Reviewer: [id number] John Floyd Notice Issued Date-Time: 02/18/2019 9:35 Notice Type: Patient Choice Letter Notice Delivered To: Patient Relationship to Patient: Transportation Supervisor Name: Delivery Method: HAND - Hand Delivered Nasreen Days: Prior Verbal Notification: Recipient Understood Notice: Yes Recipient Signature: Yes Med Rec Note Co-signed by Attending: Coverage Notice Comment: ASHUT[facility] GUEVARA Reviewer: [id number] John Floyd Notice Issued Date-Time: 02/24/2019 9:55 Notice Type: IM Discharge Notice Notice Delivered To: Patient Relationship to Patient: Transportation Supervisor Name: Delivery Method: HAND - Hand Delivered Nasreen Days: Prior Verbal Notification: Recipient Understood Notice: Yes Recipient Signature: Yes Med Rec Note Co-signed by Attending: Coverage Notice Comment: Last DP export: 02/24/19 10:35 Patient Name: SHALONDA GOODWIN Page 97544 at 1423 All edits/amendments must be made on the electronic document DICTATION DATE: 02/24/191422 COLLECTION SPECIALIST: MACIEL 02/24/191422 RPT#: [id number] DC DATE: STATUS: ADM IN [facility] [address] [place] [address] END OF REPORT
--- NOTE | 2019-02-24 14:35 | MORECARE ---
CASE MANAGEMENT DISCHARGE SUMMARY PATIENT: SHALONDA GOODWIN UNIT: [id number] ADM DATE: 02/15/19 AGE: 73 : 44 SEX: M ROOM/BED: D.2103 AUTHOR: HUGH,DOC PHYSICIAN: REFERRING PHYSICIAN: CARRIE PAGE MD DATE OF SERVICE: 02/24/19 Discharge Plan Patient Name: SHALONDA GOODWIN Facility: [facility]:[place] : 1945 Planned Disposition: Nursing Facility [facility] Cert Anticipated Discharge Date: 02/24/19 Discharge Date: Expected LOS: 9 Initial Reviewer: [id number] Initial Review Date: 02/18/2019 Generated: 02/24/19 3:34 pm Comments DCP- Discharge Planning Updated by [id number]: Rayo Floyd on 02/24/19 1:[address] Patient Name: SHALONDA GOODWIN Encounter No: [id number] : 1945 Primary Insurance: [facility] MEDICARE SOLUTIONS Anticipated DC Date: 02-24-2019 Planned Disposition: Nursing Facility [facility] Cert External Planned Provider: [facility], LONG TERM CARE MEDICAID BED Discharge Planning Comments: CM CALLED [facility], SPOKE TO VANCE AND NOTIFIED OF PLANNED DC TODAY. PT IN [place] MEDICAID BED; [facility] TO ACCEPT BACK AT DISCHARGE. CM FAXED UPDATE TO [facility] AT [phone]. FOR DISCHARGE, FAX DISCHARGE INFORMATION TO [facility] AT [phone]. NURSE REPORT TO BE CALLED TO [facility] AT [phone]. [facility] TO ARRANGE VAN TRANSPORTATION. Public Space Attendant: Rayo Floyd Appended by Rayo Floyd on 02/24/2019 14:28 CLINIC OFFICE MANAGER: CM RECEIVED DISCHARGE INFORMATION , NOTIFIED PRAVEEN RENNER, , WHO IS IN AGREEMENT WITH DISCHARGE TODAY BACK TO [facility]. CM NOTIFIED PT IN ROOM, PT IN AGREEMENT WITH DISCAHRGE BACK TO [facility]. CM FAXED DISCHARGE INFORMATION TO [facility] AT [phone]. NURSE REPORT TO BE CALLED TO [facility] AT [phone]. [facility] TO ARRANGE VAN TRANSPORTATION. CM SPOKE TO BEDSIDE NURSE WHO IFNORMED CM THAT NURSE REPORT HAS BEEN CALLED AND [facility] IS PICKING UP PT AT 3:30PM TODAY. Public Space Attendant: Rayo Floyd MSP- Discharge Planning Updated by [email or web address]: Rayo Floyd on 02/19/19 11:[address] Patient Name: SHALONDA GOODWIN Encounter No: [id number] : 1945 Primary Insurance: [facility] MEDICARE SOLUTIONS Anticipated DC Date: Planned Disposition: [facility] Facility External Planned Provider:[facility], RESIDENTIAL CARE MEDICAID BED Discharge Planning Comments: CM CALLED [facility], SPOKE TO GALA, PROOF CLERK, , WHO CONFIRMED PT IS IN [place] [facility] MEDICAID BED; [facility] TO ACCEPT [facility] AT DISCHARGE. FOR DISCHARGE, FAX DISCHARGE INFORMATION TO [facility] AT [phone]. NURSE REPORT TO BE CALLED TO [facility] AT [phone]. [facility] TO ARRANGE VAN TRANSPORTATION. Public Space Attendant: Rayo Floyd MSP- Discharge Planning Updated by [email or web address]: Rayo Floyd on 02/18/19 3:[address] Patient Name: SHALONDA GOODWIN Admission Status: ER Accout number: [id number] Admission Date: 02-15-2019 : 1945 Admission Diagnosis: Attending: CARRIE PAGE Current LOS: 3 Anticipated DC Date: Planned Disposition: [facility] Facility Primary Insurance: [facility] MEDICARE SOLUTIONS PLANNED EXTERNAL PROVIDER: [facility] MEDICARE REHAB BED Discharge Planning Comments: CM MET WITH PT IN ROOM TO DISCUSS DISCHARGE PLANNING AND NEEDS. PT REPORTS HE IS STILL AT [facility] FOR REHAB SERVICES. PT WANTS TO RETURN TO [facility] TO COMPLETE REHAB AT HOSPITAL DISCHARGE, REPORTS ABILITY TO SIT FOR VAN TRANSPORT. CHOICE SIGNED FOR [facility]. CM CALLED [facility], LEFT MESSAGE FOR CM AT [phone], TO CONFIRM REHAB BED; SHE WAS GONE FOR THE DAY. FOR DISCHARGE, FAX DISCHARGE INFORMATION TO [facility] AT [phone]. NURSE REPORT TO BE CALLED TO [facility] AT [phone]. [facility] TO ARRANGE VAN TRANSPORTATION. Public Space Attendant: Rayo Floyd DCPIA - Discharge Planning Initial Assessment Updated by [email or web address]: Rayo Floyd on 02/18/19 4:42 pm * Is the patient Alert and Oriented? Yes * How many steps to enter\exit or inside your home? ELEVATOR * PCP DR. PAGE * Pharmacy [facility]. * Preadmission Environment [facility] Facility * Facility Name [facility] * ADLs Partial Dependent * Partial ADLs (Assistance needed) Ambulation Bathing Dressing Medication Management Toileting * Equipment Other * Other Equipment ALL MEDICAL EQUIPMENT PROVIDED BY [facility] * List name and contact numbers for known caregivers / representatives who currently or will assist patient after discharge: PRAVEEN RENNER, * Verbal permission to speak to the caregivers and representatives has been obtained from the patient. Yes * Community resources currently utilized None * Please name any agencies selected above. NONE * Additional services required to return to the preadmission environment? No * Can the patient safely return to the preadmission environment? Yes * Has this patient been hospitalized within the prior 30 days at any hospital? No Coverage Notice Reviewer: [id number] John Floyd Notice Issued Date-Time: 02/18/2019 9:35 Notice Type: Patient Choice Letter Notice Delivered To: Patient Relationship to Patient: Screw Down Name: Delivery Method: HAND - Hand Delivered Nasreen Days: Prior Verbal Notification: Recipient Understood Notice: Yes Recipient Signature: Yes Med Rec Note Co-signed by Attending: Coverage Notice Comment: A[facility]UT[facility] GUEVARA Reviewer: [id number] John Floyd Notice Issued Date-Time: 02/24/2019 9:55 Notice Type: IM Discharge Notice Notice Delivered To: Patient Relationship to Patient: Screw Down Name: Delivery Method: HAND - Hand Delivered Nasreen Days: Prior Verbal Notification: Recipient Understood Notice: Yes Recipient Signature: Yes Med Rec Note Co-signed by Attending: Coverage Notice Comment: Last DP export: 02/24/19 1:23 Patient Name: SHALONDA GOODWIN Page 17057 at 1435 All edits/amendments must be made on the electronic document DICTATION DATE: 02/24/191433 CUPOLA CHARGER INSULATION: MACIEL 02/24/191433 RPT#: [id number] MS DATE: STATUS: ADM IN [facility] [address] [place] [address] END OF REPORT
--- NOTE | 2019-02-24 15:34 | MORECARE ---
CASE MANAGEMENT DISCHARGE SUMMARY PATIENT: SHALONDA GOODWIN UNIT: [id number] ADM DATE: 02/15/19 AGE: 73 : 43 SEX: M ROOM/BED: D.2103 AUTHOR: HUGH,DOC PHYSICIAN: REFERRING PHYSICIAN: CARRIE PAGE MD DATE OF SERVICE: 02/24/19 Discharge Plan Patient Name: SHALONDA GOODWIN Facility: [facility]:[place] : 1945 Planned Disposition: Nursing Facility [facility] Cert Anticipated Discharge Date: 02/24/19 Discharge Date: Expected LOS: 9 Initial Reviewer: [id number] Initial Review Date: 02/18/2019 Generated: 02/24/19 4:33 pm Comments DCP- Discharge Planning Updated by [email or web address]: Rayo Floyd on 02/24/19 2:[address] Patient Name: SHALONDA GOODWIN Encounter No: [id number] : 1945 Primary Insurance: [facility] MEDICARE SOLUTIONS Anticipated DC Date: 02-24-2019 Planned Disposition: Nursing Facility [facility] Cert External Planned Provider: [facility], MEDICARE REHAB BED DCP follow-up note: CM SPOKE TO RN CASPER MANZANO WHO INFORMED CM THAT SHE RECEIVED CALL FROM PT'S [employer]URANCE [employer], THEY ARE AUTHORIZATING SKILLED CARE AT [facility]. Rayo Floyd,. CASE MANAGEMENT DCP- Discharge Planning Updated by [id number]: Rayo Floyd on 02/24/19 1:[address] Patient Name: SHALONDA GOODWIN Encounter No: [id number] : 1945 Primary Insurance: [facility] MEDICARE SOLUTIONS Anticipated DC Date: 02-24-2019 Planned Disposition: Nursing Facility [facility] Cert External Planned Provider: [facility], LONG TERM CARE MEDICAID BED Discharge Planning Comments: CM CALLED [facility], SPOKE TO VANCE AND NOTIFIED OF PLANNED DC TODAY. PT IN [facility]RARY HISTORIAN CARE MEDICAID BED; [facility] TO ACCEPT BACK AT DISCHARGE. CM FAXED UPDATE TO [facility] AT [phone]. FOR DISCHARGE, FAX DISCHARGE INFORMATION TO [facility] AT [phone]. NURSE REPORT TO BE CALLED TO [facility] AT [phone]. [facility] TO ARRANGE VAN TRANSPORTATION. Scrap Burner: Rayo Floyd Appended by Rayo Floyd on 02/24/2019 14:28 TODDLER LEAD TEACHER: CM RECEIVED DISCHARGE INFORMATION , NOTIFIED PRAVEEN RENNER, , WHO IS IN AGREEMENT WITH DISCHARGE TODAY BACK TO [facility]. CM NOTIFIED PT IN ROOM, PT IN AGREEMENT WITH DISCAHRGE BACK TO [facility]. CM FAXED DISCHARGE INFORMATION TO [facility] AT [phone]. NURSE REPORT TO BE CALLED TO [facility] AT [phone]. [facility] TO ARRANGE VAN TRANSPORTATION. CM SPOKE TO BEDSIDE NURSE WHO IFNORMED CM THAT NURSE REPORT HAS BEEN CALLED AND [facility] IS PICKING UP PT AT 3:30PM TODAY. Scrap Burner: Rayo Floyd DCP- Discharge Planning Updated by [id number]: Rayo Floyd on 02/19/19 11:[address] Patient Name: SHALONDA GOODWIN Encounter No: [id number] : 1945 Primary Insurance: [facility] MEDICARE SOLUTIONS Anticipated DC Date: Planned Disposition: Group Home Facility External Planned Provider:[facility] TERM CARE MEDICAID BED Discharge Planning Comments: CM CALLED [facility], SPOKE TO GALA, BOOTS AND SHOES SUPERVISOR, , WHO CONFIRMED PT IS IN LIBRARY HISTORIAN CARE MEDICAID BED; [facility] TO ACCEPT BACK AT DISCHARGE. FOR DISCHARGE, FAX DISCHARGE INFORMATION TO [facility] AT [phone]. NURSE REPORT TO BE CALLED TO [facility] AT [phone]. [facility] TO ARRANGE VAN TRANSPORTATION. Scrap Burner: Rayo Floyd DCP- Discharge Planning Updated by [id number]: Rayo Floyd on 02/18/19 3:[address] Patient Name: SHALONDA GOODWIN Admission Status: ER Accout number: [id number] Admission Date: 02-15-2019 : 1945 Admission Diagnosis: Attending: CARRIE PAGE Current LOS: 3 Anticipated DC Date: Planned Disposition: Group Home Facility Primary Insurance: [facility] MEDICARE SOLUTIONS PLANNED EXTERNAL PROVIDER: [facility], MEDICARE REHAB BED Discharge Planning Comments: CM MET WITH PT IN ROOM TO DISCUSS DISCHARGE PLANNING AND NEEDS. PT REPORTS HE IS STILL AT [facility] FOR REHAB SERVICES. PT WANTS TO RETURN TO [facility] TO COMPLETE REHAB AT HOSPITAL DISCHARGE, REPORTS ABILITY TO SIT FOR VAN TRANSPORT. CHOICE SIGNED FOR [facility]. CM CALLED [facility], LEFT MESSAGE FOR CM AT [phone], TO CONFIRM REHAB BED; SHE WAS GONE FOR THE DAY. FOR DISCHARGE, FAX DISCHARGE INFORMATION TO [facility] AT [phone]. NURSE REPORT TO BE CALLED TO [facility] AT [phone]. [facility] TO ARRANGE VAN TRANSPORTATION. Scrap Burner: Rayo Floyd DCPIA - Discharge Planning Initial Assessment Updated by [id number]: Rayo Floyd on 02/18/19 4:42 pm * Is the patient Alert and Oriented? Yes * How many steps to enter\exit or inside your home? ELEVATOR * PCP DR. PAGE * Pharmacy [facility]. * Preadmission Environment Group Home Facility * Facility Name [facility] * ADLs Partial Dependent * Partial ADLs (Assistance needed) Ambulation Bathing Dressing Medication Management Toileting * Equipment Other * Other Equipment ALL MEDICAL EQUIPMENT PROVIDED BY [facility] * List name and contact numbers for known caregivers / representatives who currently or will assist patient after discharge: KATJA SANTAPRAVEEN, * Verbal permission to speak to the caregivers and representatives has been obtained from the patient. Yes * Community resources currently utilized None * Please name any agencies selected above. NONE * Additional services required to return to the preadmission environment? No * Can the patient safely return to the preadmission environment? Yes * Has this patient been hospitalized within the prior 30 days at any hospital? No Coverage Notice Reviewer: [id number] John Floyd Notice Issued Date-Time: 02/18/2019 9:35 Notice Type: Patient Choice Letter Notice Delivered To: Patient Relationship to Patient: School Program Director Name: Delivery Method: HAND - Hand Delivered Nasreen Days: Prior Verbal Notification: Recipient Understood Notice: Yes Recipient Signature: Yes Med Rec Note Co-signed by Attending: Coverage Notice Comment: ASHUTOSH GUEVARA Reviewer: [id number] John Floyd Notice Issued Date-Time: 02/24/2019 9:55 Notice Type: IM Discharge Notice Notice Delivered To: Patient Relationship to Patient: School Program Director Name: Delivery Method: HAND - Hand Delivered Nasreen Days: Prior Verbal Notification: Recipient Understood Notice: Yes Recipient Signature: Yes Med Rec Note Co-signed by Attending: Coverage Notice Comment: Last DP export: 02/24/19 1:35 Patient Name: SHALONDA GOODWIN Page [id number] at 1534 All edits/amendments must be made on the electronic document DICTATION DATE: 02/24/191532 JEWEL GAUGER: MACIEL 02/24/191532 RPT#: [id number] DC DATE: STATUS: ADM IN [facility] [address] [place] [address] END OF REPORT
--- NOTE | 2019-02-24 15:36 | NUR ---
PT AWAKE AND ORIENTED, RECIEVED BY STRETCHER.
== END 2019-02-24 15:36 | DRG 871 ==
LOC: D.ER 20:23 → D.M2 21:52
PROVIDERS: Emergency Medicine; Family Medicine; ADMIT Family Medicine; ATTEND Family Medicine
DX: A41.9 Sepsis, unspecified organism (principal); J18.9 Pneumonia, unspecified organism; J44.0 Chronic obstructive pulmonary disease with (acute) lower respiratory infection; J44.1 Chronic obstructive pulmonary disease with (acute) exacerbation; N39.0 Urinary tract infection, site not specified; I27.20 Pulmonary hypertension, unspecified; Z99.81 Dependence on supplemental oxygen; N40.0 Benign prostatic hyperplasia without lower urinary tract symptoms; F03.90 Unspecified dementia, unspecified severity, without behavioral disturbance, psychotic disturbance, mood disturbance, and anxiety; D64.9 Anemia, unspecified; I10 Essential (primary) hypertension; I25.10 Atherosclerotic heart disease of native coronary artery without angina pectoris